=== PATIENT | female | born 1935 | race Caucasian/White ===

== ENCOUNTER 2018-04-14 18:09 | Emergency (ER) | payer MEDICARE, OTHER ==
[2018-04-14 18:17] VITALS: TEMP 97.6
--- NOTE | 2018-04-14 19:10 | XR ---
EXAMINATION TYPE: XR knee complete LT DATE OF EXAM: 04/14/2018 COMPARISON: NONE HISTORY: Injury and pain TECHNIQUE: 3 views FINDINGS: There is mild spurring of the medial femoral and tibial condyles. I see no fracture nor dis location. There is no sign of knee joint effusion. IMPRESSION: Minor degenerative changes. No fracture seen.
[2018-04-14 20:22] VITALS: BP 191/88; PULSE 65; RESP 16
--- NOTE | 2018-04-14 20:22 | US ---
EXAMINATION TYPE: US venous doppler duplex LE LT DATE OF EXAM: 04/14/2018 7:46 PM COMPARISON: NONE CLINICAL HISTORY: Pain. Left leg pain SIDE PERFORMED: Left TECHNIQUE: The lower extremity deep venous system is examined utilizing real time linear array sonog freddie with graded compression, doppler sonography and color-flow sonography. VESSELS IMAGED: External Iliac Vein (EIV) Common Femoral Vein Deep Femoral Vein Greater Saphenous Vein * Femoral Vein Popliteal Vein Small Saphenous Vein * Proximal Calf Veins (* superficial vessels) Left Leg: Appears negative for DVT IMPRESSION: No evidence of deep venous thrombosis in the left leg.
[2018-04-14] MEDS ORDERED: LOSARTAN 50 MG TAB PO STA (20:25)
[2018-04-14 20:42] LABS: Albumin 3.9 g/dL (3.5-5.0); Calcium 10.1 mg/dL (8.4-10.2); Potassium 4.5 mmol/L (3.5-5.1); Total Bilirubin 0.6 mg/dL (0.2-1.3)
--- NOTE | 2018-04-14 20:50 | ED ---
General Adult HPI - General Chief complaint: Extremity Injury, Lower Stated complaint: knee injury Source: patient, RN notes reviewed, old records reviewed Mode of arrival: EMS Limitations: no limitations - History of Present Illness Initial comments: 83-year-old female patient presents to ED after injuring her left knee. Patient states that at about 10:00 this morning while she was getting up from the toilet she twisted and felt pain in her left knee. Patient did not fall. Patient states that this pain has been progressively getting worse all day.. Patient describes it as a dull pain. Patient was ambulatory after the injury. Patient presented to the ED because of pain. Patient denies other complaints, including chest pain, shortness of breath, abdominal pain, nausea vomiting diarrhea, loss of bowel or bladder control, back pain. Systemic: Pt denies fatigue, myalgia, fever/chills, rash. Pt denies weakness, night sweats, weight loss. Neuro: Pt denies headache, visual disturbances, syncope or pre-syncope. HEENT: Pt denies ocular discharge or irritation, otalgia, rhinorrhea, pharyngitis or notable lymphadenopathy. Cardiopulmonary: Pt denies chest pain, SOB, heart palpitations, dyspnea on exertion. Abdominal/GI: Pt denies abdominal pain, n/v/d. : Pt denies dysuria, burning w/ urination, frequency/urgency. Denies new onset urinary or bowel incontinence. MSK: Pt denies myalgia, loss of strength or function in extremities. - Related Data Home Medications Medication Instructions Recorded Confirmed Atenolol [Tenormin] 50 mg PO DAILY 06/05/14 06/05/14 Furosemide [Lasix] 20 mg PO DAILY 06/05/14 06/05/14 Levothyroxine Sodium [Synthroid] 125 mcg PO DAILY 06/05/14 06/05/14 Losartan Potassium 100 mg PO DAILY 06/05/14 06/05/14 Multivitamins, Thera [Multivitamin 1 each PO DAILY 06/05/14 06/05/14 (formulary)] Pravastatin Sodium [Pravachol] 80 mg PO HS 06/05/14 06/05/14 Solifenacin Succinate [Vesicare] 5 mg PO DAILY 06/05/14 06/05/14 amLODIPine [Norvasc] 2.5 mg PO DAILY 06/05/14 06/05/14 Previous Rx's Medication Instructions Recorded Levofloxacin [Levaquin] 750 mg PO DAILY #5 tab 06/06/14 Albuterol Nebulized [Ventolin 2.5 mg INHALATION RT-QID #1 nebu 06/08/14 Nebulized] Oseltamivir [Tamiflu] 75 mg PO Q12HR #4 cap 06/08/14 guaiFENesin [Mucinex] 1,200 mg PO Q12HR #1 tablet.er 06/08/14 Ibuprofen [Motrin] 400 mg PO Q6HR PRN #40 day 04/14/18 Allergies Allergy/AdvReac Type Severity Reaction Status Date / Time Sulfa (Sulfonamide Allergy Rash/Hives Verified 04/14/18 18:17 Antibiotics) Review of Systems ROS Statement: Those systems with pertinent positive or pertinent negative responses have been documented in the HPI. ROS Other: All systems not noted in ROS Statement are negative. Past Medical History Past Medical History: Hyperlipidemia, Hypertension, Myocardial Infarction ([place]), Thyroid Disorder Last Myocardial Infarction Date:: 1984 History of Any Multi-Drug Resistant Organisms: None Reported Past Surgical History: Appendectomy, Cholecystectomy, Joint Replacement, Tonsillectomy Additional Past Surgical History / Comment(s): RT KNEE SURGERY Past Anesthesia/Blood Transfusion Reactions: No Reported Reaction Past Psychological History: No Psychological Hx Reported Smoking Status: Never smoker Past Alcohol Use History: None Reported Past Drug Use History: None Reported General Exam - General Exam Comments Initial Comments: Constitutional: NAD, AOX3, Pt has pleasant affect. HEENT: NC/AT, trachea midline, neck supple, no lymphadenopathy. Posterior pharynx non erythematous, without exudates. External ears appear normal, without discharge. Mucous membranes moist. Eyes PERRLA, EOM intact. There is no scleral icterus. No pallor noted. Cardiopulmonary: RRR, no murmurs, rubs or gallops, no JVD noted. Lungs CTAB in anterior and posterior bansal. No peripheral edema. Abdominal exam: Abdomen soft and non-distended. Abdomen non-tender to palpation in all 4 quadrants. Bowel sounds active in LLQ. No hepatosplenomegaly. Neuro: CN II-XII intact, no focal deficit, no facial droop, no extremity weakness or paresthesias. MSK: Left knee mildly tender to palpation. Flexion of the knee moderately impaired due to pain. Posterior left calf tender to palpation, Homans sign negative. Psoas strength 5 out of 5 bilaterally. Patient upper extremities 5 out of 5 strength. Distal pulses intact. Limitations: no limitations Course Vital Signs 04/14/18 04/14/18 18:14 20:22 Temperature 97.6 F Pulse Rate 98 65 Respiratory 20 16 Rate Blood Pressure 203/86 191/88 O2 Sat by Pulse 96 95 Oximetry Medical Decision Making - Medical Decision Making 83-year-old female patient who presents to ED with left knee pain after sustaining a twisting injury, patient did not fall. Physical exam did not reveal any gross pathology. Patient's left calf was tender palpation, Homans sign negative. Imaging modalities including a left knee film, left lower extremity venous duplex ultrasound performed. The plain film did not display any acute fracture, dislocation or joint effusion. The lower extremity ultrasound did not display any DVT. A CMP displayed adequate kidney function. The patient was hypertensive 191/88 in ED. No focal deficit, no facial droop, no extremity weakness, pt cognition at baseline. Pt did not take her at home PO antihypertensive medication, it was ordered for her in ED. patient will monitor her blood pressure at home. The patient will be discharged with outpatient orthopedic follow up. Px ibuprofen for pain and inflammation. Patient to return to ED if new signs or symptoms develop, including chest pain, shortness of breath, focal deficit, change in mental status, fall, syncope/presyncope or any other new symptoms. Case discussed with Dr. Hernandez. Disposition Clinical Impression: Left knee sprain Disposition: HOME SELF-CARE Condition: Good Instructions: Knee Sprain (ED) Additional Instructions: Please continue to ice elevate the affected area at least 4 times a day for 20 minutes at a time. Please use Tylenol/ibuprofen for pain. Please follow-up in 7-10 days for repeat x-rays if symptoms persist. Please return to emergency room for any other concerns.Patient to adhere to previously discussed treatment plan and will take medication(s) as directed. Patient to follow up with PCP in 1 -2 days. Patient to return to ED if symptoms do not improve. Prescriptions: Ibuprofen [Motrin] 400 mg PO Q6HR PRN #40 day PRN Reason: Pain Is patient prescribed a controlled substance at d/c from ED?: No Referrals: Neo Tarango MD [Primary Care Provider] - 1-2 days Colby Erwin MD [Medical Doctor] - 1-2 days
== END 2018-04-14 21:00 | disposition home or self-care (01) ==
LOC: EC 18:09
DX: S83.92XA Sprain of unspecified site of left knee, initial encounter (principal); M79.662 Pain in left lower leg; I10 Essential (primary) hypertension; I25.2 Old myocardial infarction; E78.5 Hyperlipidemia, unspecified; E07.9 Disorder of thyroid, unspecified; Z90.49 Acquired absence of other specified parts of digestive tract; Z96.651 Presence of right artificial knee joint; Z79.899 Other long term (current) drug therapy; Z88.2 Allergy status to sulfonamides; X50.1XXA Overexertion from prolonged static or awkward postures, initial encounter; Y92.002 Bathroom of unspecified non-institutional (private) residence as the place of occurrence of the external cause
CPT/HCPCS: 36415; 80053; 99284

== ENCOUNTER 2019-08-08 14:44 | Observation (INO) | payer MEDICARE, OTHER ==
[2019-08-08] MEDS ORDERED: SODIUM CHLORIDE 0.9% 500 ML 500 ML IV STA (15:08)
--- NOTE | 2019-08-08 15:16 | ED ---
General Adult HPI - General Chief complaint: Neuro Symptoms/Deficit Stated complaint: Poss stroke Time Seen by Provider: 08/08/19 14:55 Source: patient, EMS, RN notes reviewed, old records reviewed Mode of arrival: EMS Limitations: no limitations - History of Present Illness Initial comments: This is an 84-year-old female presents emergency Department because of right- sided facial droop. According to EMS last and the patient was seen normal was at 11:00 this morning. At 2:00 the home health nurse came to the house and noted right-sided facial droop and called EMS. Patient herself has no complaints per patient denies any patient denies any numbness weakness. Patient denies any visual disturbance. Patient denies headache. Patient states she can move all 470. Patient's denies chest pain difficult breathing shortness of breath. Patient denies any recent fever chills or cough. Patient denies any abdominal pain. Patient denies nausea vomiting. - Related Data Home Medications Medication Instructions Recorded Confirmed Levothyroxine Sodium [Synthroid] 125 mcg PO MOTUWETHFRSA 06/05/14 08/08/19 Losartan Potassium 100 mg PO DAILY 06/05/14 08/08/19 Pravastatin Sodium [Pravachol] 80 mg PO DAILY 06/05/14 08/08/19 Carvedilol [Coreg] 3.125 mg PO BID 08/08/19 08/08/19 Furosemide [Lasix] 20 mg PO DAILY 08/08/19 08/08/19 Levothyroxine Sodium [Synthroid] 187.5 mcg PO TUBBS 08/08/19 08/08/19 Allergies Allergy/AdvReac Type Severity Reaction Status Date / Time Sulfa (Sulfonamide Allergy Rash/Hives Verified 08/08/19 16:24 Antibiotics) Review of Systems ROS Statement: Those systems with pertinent positive or pertinent negative responses have been documented in the HPI. ROS Other: All systems not noted in ROS Statement are negative. Past Medical History Past Medical History: Hyperlipidemia, Hypertension, Myocardial Infarction ([place]), Thyroid Disorder Last Myocardial Infarction Date:: 1984 History of Any Multi-Drug Resistant Organisms: None Reported Past Surgical History: Appendectomy, Cholecystectomy, Joint Replacement, Tonsillectomy Additional Past Surgical History / Comment(s): RT KNEE SURGERY Past Anesthesia/Blood Transfusion Reactions: No Reported Reaction Past Psychological History: No Psychological Hx Reported Smoking Status: Never smoker Past Alcohol Use History: None Reported Past Drug Use History: None Reported General Exam - General Exam Comments Initial Comments: GENERAL: Patient is well-developed and well-nourished. Patient is nontoxic and well- hydrated and is in no acute distress. ENT: Neck is soft and supple. No significant lymphadenopathy is noted. Oropharynx is clear. Moist mucous membranes. Neck has full range of motion without eliciting any pain. EYES: The sclera were anicteric and conjunctiva were pink and moist. Extraocular movements were intact and pupils were equal round and reactive to light. Eyelids were unremarkable. PULMONARY: Unlabored respirations. Good breath sounds bilaterally. No audible rales rhonchi or wheezing was noted. CARDIOVASCULAR: There is a regular rate and rhythm without any murmurs gallops or rubs. ABDOMEN: Soft and nontender with normal bowel sounds. SKIN: Skin is clear with no lesions or rashes and otherwise unremarkable. NEUROLOGIC: Patient is alert and oriented x3. Patient has full range of motion all 4 extremities. Patient has no drift. Patient has facial droop on the right side of the right cheek as well as the right eyelid difficult to assess whether the forehead is involved or not because the patient's forehead is without wrinkles. MUSCULOSKELETAL: Normal extremities with adequate strength and full range of motion. LYMPHATICS: No significant lymphadenopathy is noted PSYCHIATRIC: Normal psychiatric evaluation. Limitations: no limitations Course Vital Signs 08/08/19 08/08/19 08/08/19 14:53 15:09 15:24 Temperature 97.7 F Pulse Rate 71 68 67 Respiratory 20 16 16 Rate Blood Pressure 196/117 201/99 208/105 O2 Sat by Pulse 96 95 95 Oximetry Medical Decision Making - Medical Decision Making EKG shows a sinus rhythm at a rate of 69 bpm NC interval 284 QRS is 78 QT interval is 390 QTC is 426. Chest x-ray shows no acute abnormality. CT of the brain shows no acute abnormality. Family does not want the patient transferred so that patient will be here and family understands that there is no neurology coverage in the hospital at this time. I spoke with Dr. Oreilly and he agreed to accept the patient. 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 I spoke with the neurointerventionalist and he agreed no intervention was indicated medical management was indicated. - Lab Data Result diagrams: 08/08/19 15:14 08/08/19 15:54 Lab Results 08/08/19 08/08/19 08/08/19 Range/Units 14:59 15:14 15:14 WBC 8.1 (3.8-10.6) k/uL RBC 4.47 (3.80-5.40) m/uL Hgb 13.8 (11.4-16.0) gm/dL Hct 41.3 (34.0-46.0) % MCV 92.4 (80.0-100.0) fL MCH 30.8 (25.0-35.0) pg MCHC 33.3 (31.0-37.0) g/dL RDW 13.5 (11.5-15.5) % Plt Count 123 L (150-450) k/uL Neutrophils % 62 % Lymphocytes % 25 % Monocytes % 7 % Eosinophils % 4 % Basophils % 0 % Neutrophils # 5.0 (1.3-7.7) k/uL Lymphocytes # 2.1 (1.0-4.8) k/uL Monocytes # 0.6 (0-1.0) k/uL Eosinophils # 0.3 (0-0.7) k/uL Basophils # 0.0 (0-0.2) k/uL PT 10.2 (9.0-12.0) sec INR 1.0 (<1.2) APTT 21.6 L (22.0-30.0) sec Sodium (137-145) mmol/L Potassium (3.5-5.1) mmol/L Chloride (98-107) mmol/L Carbon Dioxide (22-30) mmol/L Anion Gap mmol/L BUN (7-17) mg/dL Creatinine (0.52-1.04) mg/dL Est GFR (CKD-EPI)AfAm (>60 ml/min/1.73 sqM) Est GFR (CKD-EPI)NonAf (>60 ml/min/1.73 sqM) Glucose (74-99) mg/dL POC Glucose (mg/dL) 102 H (75-99) mg/dL POC Glu Brewing Director ID [email or web address] Calcium (8.4-10.2) mg/dL Total Bilirubin (0.2-1.3) mg/dL AST (14-36) U/L ALT (4-34) U/L Alkaline Phosphatase (38-126) U/L Troponin I (0.000-0.034) ng/mL Total Protein (6.3-8.2) g/dL Albumin (3.5-5.0) g/dL 08/08/19 08/08/19 Range/Units 15:14 15:54 WBC (3.8-10.6) k/uL RBC (3.80-5.40) m/uL Hgb (11.4-16.0) gm/dL Hct (34.0-46.0) % MCV (80.0-100.0) fL MCH (25.0-35.0) pg MCHC (31.0-37.0) g/dL RDW (11.5-15.5) % Plt Count (150-450) k/uL Neutrophils % % Lymphocytes % % Monocytes % % Eosinophils % % Basophils % % Neutrophils # (1.3-7.7) k/uL Lymphocytes # (1.0-4.8) k/uL Monocytes # (0-1.0) k/uL Eosinophils # (0-0.7) k/uL Basophils # (0-0.2) k/uL PT (9.0-12.0) sec INR (<1.2) APTT (22.0-30.0) sec Sodium 140 (137-145) mmol/L Potassium 4.7 (3.5-5.1) mmol/L Chloride 105 (98-107) mmol/L Carbon Dioxide 31 H (22-30) mmol/L Anion Gap 4 mmol/L BUN 22 H (7-17) mg/dL Creatinine 0.62 (0.52-1.04) mg/dL Est GFR (CKD-EPI)AfAm >90 (>60 ml/min/1.73 sqM) Est GFR (CKD-EPI)NonAf 82 (>60 ml/min/1.73 sqM) Glucose 86 (74-99) mg/dL POC Glucose (mg/dL) (75-99) mg/dL POC Glu Brewing Director ID Calcium 9.7 (8.4-10.2) mg/dL Total Bilirubin 0.5 (0.2-1.3) mg/dL AST 50 H (14-36) U/L ALT 27 (4-34) U/L Alkaline Phosphatase 110 (38-126) U/L Troponin I 0.020 (0.000-0.034) ng/mL Total Protein 7.3 (6.3-8.2) g/dL Albumin 4.1 (3.5-5.0) g/dL Disposition Clinical Impression: Cerebrovascular accident (CVA) Disposition: ADMITTED IP TO THIS HOSP Referrals: Neo Tarango MD [Primary Care Provider] - 1-2 days Time of Disposition: 17:15
[2019-08-08 15:19] LABS: Glucose,Whole Blood 102 mg/dL (75-99)
--- NOTE | 2019-08-08 15:34 | CT ---
EXAMINATION TYPE: CT brain wo con for TPA DATE OF EXAM: 08/08/2019 COMPARISON: None HISTORY: Neuro deficit, acute, stroke suspected CT DLP: 1076.4 mGycm Automated exposure control for dose reduction was used. TECHNIQUE: CT scan of the head is performed without contrast. FINDINGS: There is no acute intracranial hemorrhage or midline shift identified. There is diffuse v entricular and sulcal prominence consistent with diffuse age-related cerebral atrophy. There is low- attenuation in the periventricular white matter consistent with chronic small vessel ischemic change. The globes are intact and the visualized sinuses are clear. IMPRESSION: 1. No acute intracranial hemorrhage or midline shift. No acute intracranial process seen. 2. Views age-related cerebral atrophy and chronic small vessel ischemic change noted.
[2019-08-08 15:42] LABS: Basophils % (A) 0 %; Eosinophils # (A) 0.3 k/uL (0-0.7); Eosinophils % (A) 4 %; HCT 41.3 % (34.0-46.0); HGB 13.8 gm/dL (11.4-16.0); Lymphocytes # (A) 2.1 k/uL (1.0-4.8); Lymphocytes % (A) 25 %; MCH 30.8 pg (25.0-35.0); MCHC 33.3 g/dL (31.0-37.0); MCV 92.4 fL (80.0-100.0); Mean Platelet Volume 10.3; Monocytes # (A) 0.6 k/uL (0-1.0); Monocytes % (A) 7 %; Neutrophils % (A) 62 %; Platelet Count 123 k/uL (150-450); RBC 4.47 m/uL (3.80-5.40); RDW 13.5 % (11.5-15.5); WBC 8.1 k/uL (3.8-10.6)
[2019-08-08 15:56] LABS: Partial Thromboplastin Time 21.6 sec (22.0-30.0); Prothrombin Time 10.2 sec (9.0-12.0)
[2019-08-08 16:22] LABS: ALT 27 U/L (4-34); AST 50 U/L (14-36); African American GFR (CKD) >90 (>60 ml/min/1.73 sqM); Albumin 4.1 g/dL (3.5-5.0); Alkaline Phosphatase 110 U/L (38-126); Anion Gap 4 mmol/L; Blood Urea Nitrogen 22 mg/dL (7-17); Calcium 9.7 mg/dL (8.4-10.2); Carbon Dioxide 31 mmol/L (22-30); Chloride 105 mmol/L (98-107); Glucose 86 mg/dL (74-99); Non-African American GFR(CKD) 82 (>60 ml/min/1.73 sqM); Potassium 4.7 mmol/L (3.5-5.1); Sodium 140 mmol/L (137-145); Total Bilirubin 0.5 mg/dL (0.2-1.3); Total Protein 7.3 g/dL (6.3-8.2)
--- NOTE | 2019-08-08 16:22 | XR ---
EXAMINATION TYPE: XR chest 2V DATE OF EXAM: 08/08/2019 COMPARISON: 08/08/2019 HISTORY: Right-sided facial droop and hypertension. Altered mental status. TECHNIQUE: Frontal and lateral views of the chest are obtained. FINDINGS: There is no focal air space opacity, pleural effusion, or pneumothorax seen. There is pers istent right hemidiaphragm elevation and there are low lung volumes crowding the pulmonary vasculatur e. Cardiomediastinal silhouette is upper limits of normal size as seen on the prior. There is diffuse osseous demineralization. Moderate degenerative change of the spine. IMPRESSION: Low lung volumes creating crowding of the pulmonary vasculature. No acute process seen.
[2019-08-08] MEDS ORDERED: ASPIRIN 325 MG TAB PO STA (17:16)
[2019-08-08] MEDS ORDERED: ACETAMINOPHEN TAB 325 MG TAB PO PRN (17:51)
[2019-08-08] MEDS ORDERED: NALOXONE 0.4 MG/ML 1 ML VIAL IV PRN (17:51)
[2019-08-08] MEDS ORDERED: HYDROcodone/APAP 5-325MG 1 EACH TAB PO PRN (17:51)
[2019-08-08] MEDS: valACYclovir HCL 1,000 MG TABLET PO SCH ×2 (17:58→21:23)
--- NOTE | 2019-08-08 18:36 | P.HPIM ---
History of Present Illness H&P Date: 08/08/19 Chief Complaint: Facial droop 84 year old female with PMH of hypertension, CAD, hyperlipidemia, hypothyroidism presents the ED for right-sided facial droop. Patient specifically reports no symptoms and would like to go home. Patient reports that this morning she was visited by her friend when they noticed that she had a right-sided facial droop. According to the ED documentation, the facial droop was noted around 2:00 PM and the patient was last seen normal around 11:00 AM. Patient denies any slurred speech. She denies any confusion or difficulty finding words. She denies any difficulty swallowing. She denies any numbness weakness or tingling in her extremities. She denies any difficulty with her gait. Patient reports lower extremity edema that is chronic in nature. She denies any headache, nausea or vomiting, fever chills, cough, chest pain, shortness of breath, palpitations, changes in urination or bowel habits. No changes in appetite or weight. She denies any dizziness. Patient denies smoking or alcohol use. In the ED, patient started having a BP of 190/94. CBC showed platelet count 123. Coagulation panel showed PTT of 21.6. CMP showed bicarbonate of 31, BUN of 22, AST of 50. Troponin was 0.020, EKG showing sinus rhythm. Chest x-ray showed low lung volumes. CT brain was negative. Patient is admitted for facial droop, rule out stroke. Review of Systems Pertinent positives and negatives as discussed in HPI, a complete review of systems was performed and all other systems are negative. Past Medical History Past Medical History: Hyperlipidemia, Hypertension, Myocardial Infarction ([place]), Thyroid Disorder Last Myocardial Infarction Date:: 1984 History of Any Multi-Drug Resistant Organisms: None Reported Past Surgical History: Appendectomy, Cholecystectomy, Joint Replacement, Tonsillectomy Additional Past Surgical History / Comment(s): RT KNEE SURGERY Past Anesthesia/Blood Transfusion Reactions: No Reported Reaction Past Psychological History: No Psychological Hx Reported Smoking Status: Never smoker Past Alcohol Use History: None Reported Past Drug Use History: None Reported Medications and Allergies Home Medications Medication Instructions Recorded Confirmed Type Levothyroxine Sodium [Synthroid] 125 mcg PO MOTUWETHFRSA 06/05/14 08/08/19 History Losartan Potassium 100 mg PO DAILY 06/05/14 08/08/19 History Pravastatin Sodium [Pravachol] 80 mg PO DAILY 06/05/14 08/08/19 History Carvedilol [Coreg] 3.125 mg PO BID 08/08/19 08/08/19 History Furosemide [Lasix] 20 mg PO DAILY 08/08/19 08/08/19 History Levothyroxine Sodium [Synthroid] 187.5 mcg PO TUBBS 08/08/19 08/08/19 History Allergies Allergy/AdvReac Type Severity Reaction Status Date / Time Sulfa (Sulfonamide Allergy Rash/Hives Verified 08/08/19 16:24 Antibiotics) Physical Exam Vitals: Vital Signs Temp Pulse Resp BP Pulse Ox 08/08/19 17:48 16 166/84 08/08/19 17:17 69 16 168/79 95 08/08/19 17:09 69 16 168/79 95 08/08/19 16:09 67 16 190/94 95 08/08/19 15:24 67 16 208/105 95 08/08/19 15:09 68 16 201/99 95 08/08/19 14:53 97.7 F 71 20 196/117 96 Intake and Output 08/08/19 08/08/19 08/08/19 06:59 14:59 22:59 Other: Weight 104.326 kg General: [non toxic], [no distress], [appears at stated age] Derm: [warm], [dry] Head: [atraumatic], [normocephalic], [symmetric] Eyes: [EOMI], [no lid lag], [anicteric sclera] Mouth: [no lip lesion], [mucus membranes moist] Cardiovascular: [S1S2 reg], [no murmur], [positive posterior tibial pulse bilateral], Lungs: [CTA bilateral], [no rhonchi, no rales] , [no accessory muscle use] Abdominal: [soft], [ nontender to palpation], [no guarding], [no appreciable organomegaly] Ext: [no gross muscle atrophy], [no edema], [no contractures] Neuro: [ CN II-XI grossly intact], [no focal neuro deficits] Psych: [Alert], [oriented], [appropriate affect] Results CBC & Chem 7: 08/08/19 15:14 08/08/19 15:54 Labs: Abnormal Lab Results - Last 24 Hours (Table) 08/08/19 08/08/19 08/08/19 Range/Units 14:59 15:14 15:14 Plt Count 123 L (150-450) k/uL APTT 21.6 L (22.0-30.0) sec Carbon Dioxide (22-30) mmol/L BUN (7-17) mg/dL POC Glucose (mg/dL) 102 H (75-99) mg/dL AST (14-36) U/L 08/08/19 Range/Units 15:54 Plt Count (150-450) k/uL APTT (22.0-30.0) sec Carbon Dioxide 31 H (22-30) mmol/L BUN 22 H (7-17) mg/dL POC Glucose (mg/dL) (75-99) mg/dL AST 50 H (14-36) U/L Assessment and Plan Assessment: 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 She has been started on prednisone by mouth along with Valtrex. Concerns are for CVA. Patient and family is aware that there is no neurology on staff. Stroke workup has been initiated. Carotid ultrasound pending. Echocardiogram pending. MRI brain pending. PTOT and speech therapy consulted. Start aspirin and pravastatin. Her blood pressure is 166/84. Her home medication of Coreg and losartan will be restarted. Her vitals be monitored and medications adjusted as necessary. Her home medication of pravastatin will be restarted per dyslipidemia. Patient is on aspirin, pravastatin and Coreg for history of CAD. Her home medication of Synthroid has been restarted for hypothyroidism. DVT prophylaxis: [Heparin] Discussed with: [Patient] Anticipated discharge: [1-2 days] Anticipated discharge place: [Home] A total of [45] minutes was spent on the care of this complex patient more than 50% of the time was spent in counseling and care coordination. Patient names her daughter Agustina decision maker if she can't make decisions for herself. Patient would like to be full code. Her PCP is Dr. Tarango.
--- NOTE | 2019-08-08 19:39 | US ---
EXAMINATION TYPE: US carotid duplex BILAT DATE OF EXAM: 08/08/2019 COMPARISON: CT CLINICAL HISTORY: Stenosis. Stenosis. HTN, hyperlipidemia, [place]. EXAM MEASUREMENTS: RIGHT: Peak Systolic Velocity (PSV) cm/sec ----- Right CCA: 51.7 ----- Right ICA: 63.1 ----- Right ECA: 70.7 ICA/CCA ratio: 1.2 RIGHT: End Diastole cm/sec ----- Right CCA: 9.7 ----- Right ICA: 9.0 ----- Right ECA: 9.1 LEFT: Peak Systolic Velocity (PSV) cm/sec ----- Left CCA: 33.8 ----- Left ICA: 97.1 ----- Left ECA: 74.3 ICA/CCA ratio: 2.9 LEFT: End Diastole cm/sec ----- Left CCA: 7.5 ----- Left ICA: 12.4 ----- Left ECA: 6.2 VERTEBRALS (direction of flow): Right Vertebral: Antegrade Left Vertebral: Antegrade Rhythm: Arrhythmia Limited exam due to depth of vessels. Plaque is seen bilaterally, left greater than right. Tortuous C CA bilaterally. No elevated velocities obtained. IMPRESSION: The images and measurements suggest less than 20% stenosis in the right internal carotid artery and 50% stenosis left internal carotid artery. There is antegrade flow in the vertebral arteries. Criteria for Assigning % of Stenosis / Diameter reduction (Estimation based on the indirect measurements of the internal carotid artery velocities (ICA PSV). 1. Normal (no stenosis)=ICA PSV < 125 cm/s: ratio < 2.0: ICA EDV<40 cm/s. 2. Less than 50% stenosis=ICA PSV < 125 cm/s: ratio < 2.0: ICA EDV<40 cm/s. 3. 50 to 69% stenosis=ICA PSV of 125 to 230 cm/s: ration 2.0 ? 4.0: ICA EDV 40-100 cm/s. 4. Greater than 70% stenosis to near occlusion= ICA PSV > 230 cm/s: ratio > 4.0: ICA EDV > 100 cm/s. 5. Near occlusion= ICA PSV velocities may be low or undetectable: variable ratio and ICA EDV. 6. Total occlusion=unable to detect flow.
[2019-08-08] MEDS: CARVEDILOL 3.125 MG TAB PO SCH (20:33)
[2019-08-08] MEDS: HEPARIN SODIUM,PORCINE 5,000 UNIT/ML 1 ML VIAL SQ SCH (20:33)
[2019-08-09 06:19] LABS: Cholesterol 134 mg/dL (<200); HDL Cholesterol 45 mg/dL (40-60); LDL Cholesterol,Calculated 65 mg/dL (0-99); Triglycerides 121 mg/dL (<150)
[2019-08-09] MEDS: CARVEDILOL 3.125 MG TAB PO SCH (06:19)
[2019-08-09] MEDS ORDERED: LEVOTHYROXINE 125 MCG TAB PO SCH (06:30)
[2019-08-09] MEDS ORDERED: LOSARTAN 50 MG TAB PO SCH (09:00)
[2019-08-09] MEDS ORDERED: predniSONE 20 MG TAB PO SCH (09:00)
[2019-08-09] MEDS ORDERED: PRAVASTATIN SODIUM 80 MG TAB PO SCH (09:00)
[2019-08-09] MEDS ORDERED: FUROSEMIDE 20 MG TAB PO SCH (09:00)
--- NOTE | 2019-08-09 09:08 | MR ---
EXAMINATION TYPE: MR brain wo con DATE OF EXAM: 08/09/2019 COMPARISON: CT brain from yesterday. HISTORY: CVA. Acute onset neuro deficit on admission 1 day earlier. TECHNIQUE: Multiplanar, multisequence imaging of the brain and brainstem is performed without IV cont rast. FINDINGS: Suboptimal due to patient motion, fast brain protocol was utilized. Diffusion weighted images demonstrate no evidence of a recent infarct or other diffusion abnormality. There is no worrisome extra-axial fluid collection. There is diffuse ventricular and sulcal prominenc e with degree of ventricular dilatation out of proportion to degree of sulcal effacement. Underlying normal pressure hydrocephalus needs to be considered. No significant change in ventricular size from one day earlier. Focal and confluent areas of T2 hyperintensity are seen throughout the superficial d eep and periventricular white matter. Findings presumed bibasilar product of proximal small vessel is chemic change in patient of this age. Midline structures demonstrate normal morphology. The craniocervical junction appears within normal limits. Normal vascular flow voids are present. Mild mucosal thickening involving ethmoid sinuses trish aterally along with left frontal sinus and inferior maxillary sinuses. Globes are intact. IMPRESSION: 1. No evidence of a recent infarct. 2. Redemonstration of mild to moderate diffuse cerebral atrophy and advanced chronic small vessel isc hemic change with suggestion of underlying normal pressure hydrocephalus. Correlate clinically. Corre lation with old outside CT or MRI would be beneficial to see if there is been change in ventricular s ize. 3. Mild chronic paranasal sinus disease. No acute sinusitis.
[2019-08-09] MEDS: HEPARIN SODIUM,PORCINE 5,000 UNIT/ML 1 ML VIAL SQ SCH (09:30)
[2019-08-09] MEDS: valACYclovir HCL 1,000 MG TABLET PO SCH (09:31)
--- NOTE | 2019-08-09 11:11 | P.DS ---
Providers Date of admission: 08/08/19 17:16 Expected date of discharge: 08/09/19 Attending physician: Frank Oreilly MD Primary care physician: Neo Tarango [facility] Course: 84 year old female with PMH of hypertension, CAD, hyperlipidemia, hypothyroidism presents the ED for right-sided facial droop. Patient specifically reports no symptoms and would like to go home. Patient reports that this morning she was visited by her friend when they noticed that she had a right-sided facial droop. According to the ED documentation, the facial droop was noted around 2:00 PM and the patient was last seen normal around 11:00 AM. Patient denies any slurred speech. She denies any confusion or difficulty finding words. She denies any difficulty swallowing. She denies any numbness weakness or tingling in her extremities. She denies any difficulty with her gait. Patient reports lower extremity edema that is chronic in nature. She denies any headache, nausea or vomiting, fever chills, cough, chest pain, shortness of breath, palpitations, changes in urination or bowel habits. No changes in appetite or weight. She denies any dizziness. Patient denies smoking or alcohol use. In the ED, patient started having a BP of 190/94. CBC showed platelet count 123. Coagulation panel showed PTT of 21.6. CMP showed bicarbonate of 31, BUN of 22, AST of 50. Troponin was 0.020, EKG showing sinus rhythm. Chest x-ray showed low lung volumes. CT brain was negative. Patient is admitted for facial droop, rule out stroke. Carotid ultrasound showed 20% stenosis right internal carotid and 50% stenosis left internal carotid. MRI brain was negative for acute stroke. Echocardiogram was obtained and was pending at the time of this note. Patient was seen and examined. No acute events overnight. Patient has no complaints today. She denies any chest pain, shortness of breath or palpitations. No nausea or vomiting. No fever or chills. Continues to have facial droop and inability to close the right eye. General: [non toxic], [no distress], [appears at stated age] Derm: [warm], [dry] Head: [atraumatic], [normocephalic], [symmetric] Eyes: [EOMI], [no lid lag], [anicteric sclera] Mouth: [no lip lesion], [mucus membranes moist] Cardiovascular: [S1S2 reg], [no murmur], [positive posterior tibial pulse bilateral], Lungs: [CTA bilateral], [no rhonchi, no rales] , [no accessory muscle use] Abdominal: [soft], [ nontender to palpation], [no guarding], [no appreciable organomegaly] Ext: [no gross muscle atrophy], [no edema], [no contractures] Neuro: [ CN II-XI grossly intact except right-sided facial droop and inability to close the right eye], [no focal neuro deficits] Psych: [Alert], [oriented], [appropriate affect] 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 She has been started on prednisone by mouth along with Valtrex. Concerns are for CVA. Patient and family is aware that there is no neurology on staff. Stroke workup has been initiated. Carotid ultrasound shows noncritical stenosis. Echocardiogram pending. MRI brain shows no CVA. PTOT and speech therapy consulted. Start aspirin and pravastatin. Her blood pressure is 146/67. Her home medication of Coreg and losartan will be restarted. Her vitals be monitored and medications adjusted as necessary. Her home medication of pravastatin will be restarted per dyslipidemia. Patient is on aspirin, pravastatin and Coreg for history of CAD. Her home medication of Synthroid has been restarted for hypothyroidism. [MRI brain rules out CVA. 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 Will discharge on Valtrex and prednisone. Discharge today pending echocardiogram result.] Pertinent Studies: CT brain, chest x-ray, carotid ultrasound, MRI brain, echocardiogram Patient Condition at Discharge: Stable Plan - Discharge Summary Discharge Rx Participant: No New Discharge Prescriptions: New predniSONE [Deltasone] 60 mg PO DAILY #12 tab valACYclovir HCL [Valtrex] 1,000 mg PO TID #15 tablet Continue Levothyroxine Sodium [Synthroid] 125 mcg PO MOTUWETHFRSA Pravastatin Sodium [Pravachol] 80 mg PO DAILY Losartan Potassium 100 mg PO DAILY Furosemide [Lasix] 20 mg PO DAILY Carvedilol [Coreg] 3.125 mg PO BID Levothyroxine Sodium [Synthroid] 187.5 mcg PO TUBBS Discharge Medication List Levothyroxine Sodium [Synthroid] 125 mcg PO MOTUWETHFRSA 06/05/14 [History] Losartan Potassium 100 mg PO DAILY 06/05/14 [History] Pravastatin Sodium [Pravachol] 80 mg PO DAILY 06/05/14 [History] Carvedilol [Coreg] 3.125 mg PO BID 08/08/19 [History] Furosemide [Lasix] 20 mg PO DAILY 08/08/19 [History] Levothyroxine Sodium [Synthroid] 187.5 mcg PO TUBBS 08/08/19 [History] predniSONE [Deltasone] 60 mg PO DAILY #12 tab 08/09/19 [Rx] valACYclovir HCL [Valtrex] 1,000 mg PO TID #15 tablet 08/09/19 [Rx] Follow up Appointment(s)/Referral(s): Neo Tarango MD [Primary Care Provider] - 1-2 days Activity/Diet/Wound Care/Special Instructions: Diet: Low-salt Follow-up with PCP within 3 days of discharge. Take all medications as advised. Come back to the ED for chest pain, shortness breath, palpitations, dizziness, confusion, inability to swallow, changes in gait or slurred speech. Discharge Disposition: HOME SELF-CARE
[2019-08-09 11:48] VITALS: BP 177/80; PULSE 57; RESP 16; TEMP 98.4
[2019-08-09] MEDS ORDERED: ASPIRIN 325 MG TAB PO SCH (12:00)
[2019-08-13] MEDS ORDERED: LEVOTHYROXINE 125 MCG TAB PO SCH (06:30)
--- NOTE | 2019-08-15 10:56 | ECHOF ---
Referral Reason:CVA MEASUREMENTS -------- HEIGHT: 157.5 cm WEIGHT: 109.3 kg BP: 165/76 RVIDd: 3.1 cm (< 3.3) IVSd: 1.6 cm (0.6 - 1.1) LVIDd: 4.5 cm (3.9 - 5.3) LVPWd: 1.4 cm (0.6 - 1.1) IVSs: 2.0 cm LVIDs: 2.9 cm LVPWs: 1.8 cm LA Diam: 4.8 cm (2.7 - 3.8) IVSd: 1.5 cm (0.6 - 1.1) LVIDd: 4.0 cm (3.9 - 5.3) LVPWd: 1.5 cm (0.6 - 1.1) IVSs: 1.8 cm LVIDs: 2.7 cm LVPWs: 1.8 cm EDV(Teich): 71 ml ESV(Teich): 27 ml EF(Teich): 62 % %FS: 33 % SV(Teich): 44 ml Ao Diam: 3.8 cm (2.0 - 3.7) AV Cusp: 2.0 cm (1.5 - 2.6) LA Diam: 4.9 cm (2.7 - 3.8) MV E Salvatore: 1.22 m/s MV DecT: 356 ms MV A Salvatore: 1.70 m/s MV E/A Ratio: 0.72 AV maxP.06 mmHg AV meanP.72 mmHg FINDINGS -------- Sinus rhythm. This was a technically good study. The left ventricular size is normal. There is moderate concentric left ventricular hypertrophy. T here is normal global left ventricular contractility. The right ventricle is normal in size and function. The left atrium is moderately dilated. The right atrium is normal in size. 5.0mg of Lumason was utilized for enhancement of images Interatrial and interventricular septum intact. There is mild to moderate aortic valve sclerosis. There is no evidence of aortic stenosis. The ao rtic valve area by continuity equation is {ALEXIA}. The maximum velocity across the aortic valve is 1. 94m/s. The mitral valve is normal. Moderate mitral annular calcification present. Mild mitral regurgitat ion is present. The tricuspid valve appears structurally normal. No regurgitation noted Pulmonic valve appears structurally normal. The aortic root, ascending aorta and aortic arch are normal. The pericardium is normal. CONCLUSIONS -------- 1. Sinus rhythm. 2. This was a technically good study. 3. The left ventricular size is normal. 4. There is moderate concentric left ventricular hypertrophy. 5. There is normal global left ventricular contractility. 6. The right ventricle is normal in size and function. 7. The left atrium is moderately dilated. 8. The right atrium is normal in size. 9. 5.0mg of Lumason was utilized for enhancement of images 10. Interatrial and interventricular septum intact. 11. There is mild to moderate aortic valve sclerosis. 12. There is no evidence of aortic stenosis. 13. The aortic valve area by continuity equation is {ALEXIA}. 14. The maximum velocity across the aortic valve is 1.94m/s. 15. The mitral valve is normal. 16. Moderate mitral annular calcification present. 17. Mild mitral regurgitation is present. 18. The tricuspid valve appears structurally normal. 19. No regurgitation noted 20. Pulmonic valve appears structurally normal. 21. The aortic root, ascending aorta and aortic arch are normal. 22. The pericardium is normal. DRILL OPERATOR [employer]: Cristiano Laurent RDCS
== END 2019-08-09 14:52 | disposition home or self-care (01) ==
LOC: EC 14:44 → 3SCARD 17:16 → UNDOADMIN 17:16 → INTOOBSV 17:16 → 3SCARD 17:35
PROVIDERS: ADMIT Family Medicine; ATTEND Family Medicine
DX: R29.810 Facial weakness (principal); I10 Essential (primary) hypertension; I25.10 Atherosclerotic heart disease of native coronary artery without angina pectoris; E03.9 Hypothyroidism, unspecified; E78.5 Hyperlipidemia, unspecified; I25.2 Old myocardial infarction; I65.21 Occlusion and stenosis of right carotid artery; I34.0 Nonrheumatic mitral (valve) insufficiency; G31.9 Degenerative disease of nervous system, unspecified; Z79.82 Long term (current) use of aspirin; Z79.890 Hormone replacement therapy; Z79.899 Other long term (current) drug therapy; Z96.60 Presence of unspecified orthopedic joint implant; Z88.2 Allergy status to sulfonamides; Z90.49 Acquired absence of other specified parts of digestive tract
CPT/HCPCS: 96372 ×2; 99285; 36415; 97162; 97166; 80061; 80053; 84484; 85025; 85610; 85730; 71046; 93880; 70450; 70551; G0378 ×2; C8929; J1644 ×2; J7512; Q9950; 93306

== ENCOUNTER 2019-11-01 13:16 | Inpatient (IN) | payer MEDICARE, OTHER ==
[2019-11-01] MEDS ORDERED: SODIUM CHLORIDE 0.9% 1,000 ML IV STA (13:30)
[2019-11-01] MEDS ORDERED: cefTRIAXone IN SWFI 1,000 MG/10 ML SYRINGE IVP STA (13:42)
--- NOTE | 2019-11-01 13:43 | ED ---
General Adult HPI - General Chief complaint: Fall Stated complaint: Fall,Dizzy Time Seen by Provider: 11/01/19 13:30 Source: patient, RN notes reviewed, old records reviewed Mode of arrival: ambulatory Limitations: no limitations - History of Present Illness Initial comments: 84-year-old female presenting status post fall. Patient fell at home, she does live alone she was unable to stand or ambulate for approximately 24 hours after the fall. She states she was dizzy prior to the fall. She has left lower extremity erythema which has been present for the past one week or so. Patient herself has no complaints, no head or neck pain. Denies injury from the fall. No chest pain or abdominal pain. No vomiting or diarrhea. - Related Data Home Medications Medication Instructions Recorded Confirmed Levothyroxine Sodium [Synthroid] 125 mcg PO MOTUWETHFRSA 06/05/14 08/08/19 Losartan Potassium 100 mg PO DAILY 06/05/14 08/08/19 Pravastatin Sodium [Pravachol] 80 mg PO DAILY 06/05/14 08/08/19 Carvedilol [Coreg] 3.125 mg PO BID 08/08/19 08/08/19 Furosemide [Lasix] 20 mg PO DAILY 08/08/19 08/08/19 Levothyroxine Sodium [Synthroid] 187.5 mcg PO TUBBS 08/08/19 08/08/19 Previous Rx's Medication Instructions Recorded predniSONE [Deltasone] 60 mg PO DAILY #12 tab 08/09/19 valACYclovir HCL [Valtrex] 1,000 mg PO TID #15 tablet 08/09/19 Allergies Allergy/AdvReac Type Severity Reaction Status Date / Time Sulfa (Sulfonamide Allergy Rash/Hives Verified 11/01/19 13:27 Antibiotics) Review of Systems ROS Statement: Those systems with pertinent positive or pertinent negative responses have been documented in the HPI. ROS Other: All systems not noted in ROS Statement are negative. Past Medical History Past Medical History: Hyperlipidemia, Hypertension, Myocardial Infarction (PA), Thyroid Disorder Last Myocardial Infarction Date:: 1984 History of Any Multi-Drug Resistant Organisms: None Reported Past Surgical History: Appendectomy, Cholecystectomy, Joint Replacement, Tonsillectomy Additional Past Surgical History / Comment(s): RT KNEE SURGERY Past Anesthesia/Blood Transfusion Reactions: No Reported Reaction Past Psychological History: No Psychological Hx Reported Smoking Status: Never smoker Past Alcohol Use History: None Reported Past Drug Use History: None Reported General Exam Limitations: no limitations General appearance: alert, in no apparent distress Head exam: Present: atraumatic, normocephalic Eye exam: Present: periorbital swelling (Right. swelling, erythema) ENT exam: Present: mucous membranes dry Respiratory exam: Present: normal lung sounds bilaterally. Absent: respiratory distress, wheezes Cardiovascular Exam: Present: regular rate, normal rhythm GI/Abdominal exam: Present: soft. Absent: distended, tenderness, guarding Extremities exam: Present: other (Left lower extremity circumferential cellulitis and chronic venous stasis) Neurological exam: Present: alert, oriented X3, CN II-XII intact. Absent: motor sensory deficit Psychiatric exam: Present: normal affect, normal mood Course Vital Signs 11/01/19 13:23 Temperature 97.6 F Pulse Rate 71 Respiratory 18 Rate Blood Pressure 175/92 O2 Sat by Pulse 95 Oximetry EKG Findings - EKG Comments: EKG Findings:: EKG: Sinus rhythm with occasional PVC, Q waves in T-wave inversion in lead 3, rate of 71, NV interval 162, QRS duration 84, QTC 444, no ST segment elevation Medical Decision Making - Medical Decision Making 84-year-old female presents status post fall with prolonged downtime. She is well-appearing with stable vitals. She has a left lower extremity cellulitis and some edema and erythema on her right side of her face and lateral orbit. Head CT is performed, negative for intracranial hemorrhage, CT of the cervical spine is negative for fracture subluxation. She has a white blood cell count 11.3, stable hemoglobin. Normal electrolytes. She has a CK of 1300 consistent with the degree of rhabdomyolysis. Urinalysis is pending. She has previous history of CHF and fluid overload, she started on 100 mL of normal saline, as well as IV antibiotics for her cellulitis. She will be admitted to Dr. Hartley. - Lab Data Result diagrams: 11/01/19 13:30 11/01/19 13:30 Lab Results 11/01/19 11/01/19 11/01/19 Range/Units 13:30 13:30 13:30 WBC 11.3 H (3.8-10.6) k/uL RBC 4.61 (3.80-5.40) m/uL Hgb 14.5 (11.4-16.0) gm/dL Hct 43.6 (34.0-46.0) % MCV 94.7 (80.0-100.0) fL MCH 31.5 (25.0-35.0) pg MCHC 33.3 (31.0-37.0) g/dL RDW 13.4 (11.5-15.5) % Plt Count 136 L (150-450) k/uL Neutrophils % 77 % Lymphocytes % 12 % Monocytes % 9 % Eosinophils % 1 % Basophils % 0 % Neutrophils # 8.7 H (1.3-7.7) k/uL Lymphocytes # 1.3 (1.0-4.8) k/uL Monocytes # 1.0 (0-1.0) k/uL Eosinophils # 0.1 (0-0.7) k/uL Basophils # 0.0 (0-0.2) k/uL PT 9.9 (9.0-12.0) sec INR 0.9 (<1.2) APTT 22.1 (22.0-30.0) sec Sodium 138 (137-145) mmol/L Potassium 4.7 (3.5-5.1) mmol/L Chloride 104 (98-107) mmol/L Carbon Dioxide 29 (22-30) mmol/L Anion Gap 5 mmol/L BUN 22 H (7-17) mg/dL Creatinine 0.54 (0.52-1.04) mg/dL Est GFR (CKD-EPI)AfAm >90 (>60 ml/min/1.73 sqM) Est GFR (CKD-EPI)NonAf 86 (>60 ml/min/1.73 sqM) Glucose 94 (74-99) mg/dL Plasma Lactic Acid Philip (0.7-2.0) mmol/L Calcium 9.7 (8.4-10.2) mg/dL Magnesium 1.9 (1.6-2.3) mg/dL Total Bilirubin 0.9 (0.2-1.3) mg/dL AST 90 H (14-36) U/L ALT 32 (4-34) U/L Alkaline Phosphatase 106 (38-126) U/L Creatine Kinase 1300 H* (30-135) U/L Total Protein 6.6 (6.3-8.2) g/dL Albumin 3.6 (3.5-5.0) g/dL 11/01/19 Range/Units 13:30 WBC (3.8-10.6) k/uL RBC (3.80-5.40) m/uL Hgb (11.4-16.0) gm/dL Hct (34.0-46.0) % MCV (80.0-100.0) fL MCH (25.0-35.0) pg MCHC (31.0-37.0) g/dL RDW (11.5-15.5) % Plt Count (150-450) k/uL Neutrophils % % Lymphocytes % % Monocytes % % Eosinophils % % Basophils % % Neutrophils # (1.3-7.7) k/uL Lymphocytes # (1.0-4.8) k/uL Monocytes # (0-1.0) k/uL Eosinophils # (0-0.7) k/uL Basophils # (0-0.2) k/uL PT (9.0-12.0) sec INR (<1.2) APTT (22.0-30.0) sec Sodium (137-145) mmol/L Potassium (3.5-5.1) mmol/L Chloride (98-107) mmol/L Carbon Dioxide (22-30) mmol/L Anion Gap mmol/L BUN (7-17) mg/dL Creatinine (0.52-1.04) mg/dL Est GFR (CKD-EPI)AfAm (>60 ml/min/1.73 sqM) Est GFR (CKD-EPI)NonAf (>60 ml/min/1.73 sqM) Glucose (74-99) mg/dL Plasma Lactic Acid Philip 1.3 (0.7-2.0) mmol/L Calcium (8.4-10.2) mg/dL Magnesium (1.6-2.3) mg/dL Total Bilirubin (0.2-1.3) mg/dL AST (14-36) U/L ALT (4-34) U/L Alkaline Phosphatase (38-126) U/L Creatine Kinase (30-135) U/L Total Protein (6.3-8.2) g/dL Albumin (3.5-5.0) g/dL Disposition Clinical Impression: Fall, Rhabdomyolysis, Dehydration, Cellulitis Disposition: ADMITTED IP TO THIS HOSP Condition: Stable Is patient prescribed a controlled substance at d/c from ED?: No Referrals: Neo Tarango MD [Primary Care Provider] - 1-2 days Decision to Admit Reason: Admit from EC Decision Date: 11/01/19 Decision Time: 15:05
[2019-11-01 14:15] LABS: Basophils % (A) 0 %; Eosinophils # (A) 0.1 k/uL (0-0.7); Eosinophils % (A) 1 %; HCT 43.6 % (34.0-46.0); HGB 14.5 gm/dL (11.4-16.0); Lymphocytes # (A) 1.3 k/uL (1.0-4.8); Lymphocytes % (A) 12 %; MCH 31.5 pg (25.0-35.0); MCHC 33.3 g/dL (31.0-37.0); MCV 94.7 fL (80.0-100.0); Mean Platelet Volume 9.2; Monocytes % (A) 9 %; Neutrophils # (A) 8.7 k/uL (1.3-7.7); Neutrophils % (A) 77 %; Platelet Count 136 k/uL (150-450); RBC 4.61 m/uL (3.80-5.40); RDW 13.4 % (11.5-15.5); WBC 11.3 k/uL (3.8-10.6)
[2019-11-01 14:23] LABS: ALT 32 U/L (4-34); AST 90 U/L (14-36); African American GFR (CKD) >90 (>60 ml/min/1.73 sqM); Albumin 3.6 g/dL (3.5-5.0); Alkaline Phosphatase 106 U/L (38-126); Anion Gap 5 mmol/L; Blood Urea Nitrogen 22 mg/dL (7-17); Calcium 9.7 mg/dL (8.4-10.2); Carbon Dioxide 29 mmol/L (22-30); Chloride 104 mmol/L (98-107); Glucose 94 mg/dL (74-99); Magnesium 1.9 mg/dL (1.6-2.3); Non-African American GFR(CKD) 86 (>60 ml/min/1.73 sqM); Potassium 4.7 mmol/L (3.5-5.1); Sodium 138 mmol/L (137-145); Total Bilirubin 0.9 mg/dL (0.2-1.3); Total Protein 6.6 g/dL (6.3-8.2)
[2019-11-01 14:26] LABS: INR 0.9 (<1.2); Partial Thromboplastin Time 22.1 sec (22.0-30.0); Prothrombin Time 9.9 sec (9.0-12.0)
[2019-11-01 14:27] LABS: Creatine Kinase 1300 U/L (30-135)
--- NOTE | 2019-11-01 14:28 | CT ---
EXAMINATION TYPE: CT brain cspine wo con DATE OF EXAM: 11/01/2019 COMPARISON: CT brain August 08, 2019. HISTORY: Fall injury with dizziness and neck pain. CT DLP: 1513.8 mGycm. Automated Exposure Control for Dose Reduction was Utilized. TECHNIQUE: CT scan of the head and cervical spine are performed without contrast. FINDINGS: There is no acute intracranial hemorrhage or midline shift shift identified. Diffuse vent ricular and sulcal prominence redemonstrated. Low-attenuation in the deep and periventricular white m atter again seen. The globes are intact and the visualized sinuses are clear. The calvarium is intact . Cervical spine is visualized in its entirety from C1 through upper thoracic levels and demonstrates s traightened alignment without evidence of acute fracture or dislocation. Slight grade 1 anterolisthe sis C3 on C4 and C4 and C5. Prevertebral soft tissue appears within normal limits. The C1-C2 articul ation is within normal limits on the coronal images. Vertebral body heights are maintained. Moderate to severe disc space narrowing and moderate spurring C5-C6 and C6-C7 levels. Posterior spurring and spur disc complexes effaces the anterior thecal sac at these levels. Axial images shows multilevel un covertebral facet degenerative changes bilaterally causing multilevel neural foraminal narrowing for reference bilateral C3-C4 and C4-C5 levels. Lung apices show no pneumothorax. IMPRESSION: 1. There is no acute fracture or dislocation evident in the cervical spine. 2. No acute intracranial hemorrhage or midline shift is seen. Moderate diffuse cerebral atrophy and c hronic small vessel ischemic changes redemonstrated without significant change from prior CT.
[2019-11-01] MEDS ORDERED: VANCOMYCIN IV PER PHARMACY 1 EACH MISC MISCELLANE PRN ×2 (14:51→17:59)
[2019-11-01] MEDS ORDERED: ACETAMINOPHEN TAB 325 MG TAB PO PRN (14:52)
[2019-11-01] MEDS ORDERED: NALOXONE 0.4 MG/ML 1 ML VIAL IV PRN (14:52)
--- NOTE | 2019-11-01 14:58 | XR ---
EXAMINATION TYPE: XR pelvis AP view DATE OF EXAM: 11/01/2019 COMPARISON: NONE HISTORY: Pain The osseous structures are intact and the joint spaces are preserved. No acute fracture is seen. Vi sualized bowel gas pattern is nonspecific. Calcifications in pelvis are likely vascular. Arthropathy of the hips. Degenerative change lower lumbar spine. IMPRESSION: 1. No acute fracture.
--- NOTE | 2019-11-01 15:03 | XR ---
EXAMINATION TYPE: XR chest 2V DATE OF EXAM: 11/01/2019 COMPARISON: 08/08/2019 HISTORY: Shortness of breath TECHNIQUE: Frontal and lateral views of the chest are obtained. FINDINGS: Scattered senescent parenchymal changes noted. Hyperinflation compatible with COPD. No evidence for infiltrate. No evidence for atelectasis. Chronic elevation right hemidiaphragm. Stran dy basilar densities are redemonstrated. Heart size is stable. Mediastinal structures are stable and grossly unremarkable. No evidence for hilar prominence. Degenerative changes dorsal spine. IMPRESSION: 1. No evidence for acute pulmonary disease.
[2019-11-01] MEDS ORDERED: VANCOMYCIN 1,750 MG in SODIUM CHLORIDE 0.9% 500 ML 500 ML IVPB ONE (15:45)
[2019-11-01] MEDS ORDERED: VANCOMYCIN 1,750 MG in SODIUM CHLORIDE 0.9% 250 ML IVPB ONE (15:45)
[2019-11-01 16:20] LABS: Appearance,Urine Cloudy (Clear); Bacteria,Urine Many /hpf; Bilirubin,Urine Negative (Negative); Blood,Urine Moderate (Negative); Budding Yeast,Urine Few /hpf; Color,Urine Yellow; Glucose,Urine (UA) Negative (Negative); Ketones,Urine Trace (Negative); Leukocyte Esterase,Urine Large (Negative); Mucus,Urine Rare /hpf; Nitrite,Urine Positive (Negative); Protein,Urine 1+ (Negative); RBC,Urine 36 /hpf (0-5); Specific Gravity,Urine 1.019 (1.001-1.035); Squamous Epithelial Cell,Urine 3 /hpf (0-4); Urobilinogen,Urine <2.0 mg/dL (<2.0); WBC,Urine >182 /hpf (0-5)
[2019-11-01] MEDS: SODIUM CHLORIDE 0.9% 1,000 ML IV SCH (16:49)
[2019-11-01] MEDS ORDERED: MELATONIN 3 MG TABLET PO PRN (17:57)
--- NOTE | 2019-11-01 18:02 | P.HPIM ---
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 In the emergency department she underwent an extensive evaluation. On arrival she was found to be hypertensive with a blood pressure 175/92. White blood cell count slightly elevated at 11.3, platelets 136, BUN 22, AST 90, creatine kinase 1300. Urinalysis showed significant urinary tract infection. CT brain and spine showed no fracture or dislocation of the cervical spine, no acute intracranial hemorrhage or midline shift with moderate diffuse vertebral atrophy and chronic small vessel ischemic changes. Pelvic x-ray showed no acute process. Chest x- ray showed no acute cardiopulmonary disease. She was given a dose of vancomycin and Rocephin in the emergency department. She was started on IV fluids. Arrangements were made for admission. Patient seen and examined at bedside. Her daughter and granddaughter who is a nurse are present and help with history gathering. On arrival into the room the patient takes she is feeling nauseous and she is coughing somewhat but this self resolved. She states that yesterday she was going from the bathroom to the living room when she fell on the floor. She does state she felt funny first however it is difficult to discern whether this is related to nausea or presyncope-type feelings. She does state that she tripped. She denies any ongoing chest pain or unusual shortness of breath. She has not had any recent fevers or chills. No coughing. She was found lying down. Urine and stool. She has had 2 issues with fecal incontinence here. She has chronic urinary incontinence and wears depends. Patient uses a 4 wheeled walker. She reports that she has a alert at home, however it stays in the basket of her walker. Review of Systems Pertinent positives and negatives as discussed in HPI, a complete review of systems was performed and all other systems are negative. Past Medical History Past Medical History: Hyperlipidemia, Hypertension, Myocardial Infarction (SC), Thyroid Disorder Last Myocardial Infarction Date:: 1984 History of Any Multi-Drug Resistant Organisms: None Reported Past Surgical History: Appendectomy, Cholecystectomy, Joint Replacement, Tonsillectomy Additional Past Surgical History / Comment(s): RT TOTAL KNEE ARTHROPLASTY Past Anesthesia/Blood Transfusion Reactions: No Reported Reaction Past Psychological History: No Psychological Hx Reported Smoking Status: Never smoker Past Alcohol Use History: None Reported Past Drug Use History: None Reported Additional History: Lives alone, has a life alert, uses 4 wheeled walker. - Past Family History family Additional Family Medical History / Comment(s): no hx of significant stroke Medications and Allergies Home Medications Medication Instructions Recorded Confirmed Type Levothyroxine Sodium [Synthroid] 125 mcg PO MOTUWETHFRSA 06/05/14 08/08/19 History Losartan Potassium 100 mg PO DAILY 06/05/14 08/08/19 History Pravastatin Sodium [Pravachol] 80 mg PO DAILY 06/05/14 08/08/19 History Carvedilol [Coreg] 3.125 mg PO BID 08/08/19 08/08/19 History Furosemide [Lasix] 20 mg PO DAILY 08/08/19 08/08/19 History Levothyroxine Sodium [Synthroid] 187.5 mcg PO TUBBS 08/08/19 08/08/19 History predniSONE [Deltasone] 60 mg PO DAILY #12 tab 08/09/19 Rx valACYclovir HCL [Valtrex] 1,000 mg PO TID #15 tablet 08/09/19 Rx Allergies Allergy/AdvReac Type Severity Reaction Status Date / Time Sulfa (Sulfonamide Allergy Rash/Hives Verified 11/01/19 13:27 Antibiotics) Physical Exam Osteopathic Statement: *. No significant issues noted on an osteopathic structural exam other than those noted in the History and Physical/Consult. Vitals: Vital Signs Temp Pulse Resp BP Pulse Ox 11/01/19 13:23 97.6 F 71 18 175/92 95 Intake and Output 11/01/19 11/01/19 11/01/19 06:59 14:59 22:59 Other: Weight 108.862 kg General: ill appearing, no distress, appears at stated age, Obese Derm: Erythema and warmth right lower extremity with 0.5 cm skin tear, + bruising right arm and right 4th and 5th toe, warm, dry Head: atraumatic, normocephalic, symmetric Eyes: EOMI, no lid lag, anicteric sclera, pupils equal round reactive to light ENT: Nose and ears atraumatic, no thrush, no pharyngeal erythema Neck: No thyromegaly, no cervical lymphadenopathy, trachea midline, supple Mouth: no lip lesion, mucus membranes moist Cardiovascular: S1S2 reg, no murmur, positive posterior tibial pulse bilateral, trace edema, capillary refill less than 2 seconds Lungs: Faint wheeze bilateral , no accessory muscle use Abdominal: soft, nontender to palpation, no guarding, no appreciable organomegaly, normal bowel sounds Ext: no gross muscle atrophy, muscle strength 5 out of 5 in bilateral upper extremities grossly, 3/5 right lower extremity and 4/5 left lower extremity, no contractures, Neuro: CN II-XI grossly intact, light touch intact all 4 extremities, finger to nose within normal limits, Psych: Alert, oriented, appropriate affect Results CBC & Chem 7: 11/01/19 13:30 11/01/19 13:30 Labs: Abnormal Lab Results - Last 24 Hours (Table) 11/01/19 11/01/19 11/01/19 Range/Units 13:30 13:30 15:50 WBC 11.3 H (3.8-10.6) k/uL Plt Count 136 L (150-450) k/uL Neutrophils # 8.7 H (1.3-7.7) k/uL BUN 22 H (7-17) mg/dL AST 90 H (14-36) U/L Creatine Kinase 1300 H* (30-135) U/L Urine Appearance Cloudy H (Clear) Urine Protein 1+ H (Negative) Urine Ketones Trace H (Negative) Urine Blood Moderate H (Negative) Urine Nitrite Positive H (Negative) Ur Leukocyte Esterase Large H (Negative) Urine RBC 36 H (0-5) /hpf Urine WBC >182 H (0-5) /hpf Urine Bacteria Many H (None) /hpf Urine Mucus Rare H (None) /hpf Urine Yeast (Budding) Few H (None) /hpf Comments: pelvic x-ray Chest x-ray: report reviewed CT Scan - head: report reviewed Thrombosis Risk Factor Assmnt - DVT/VTE Prophylaxis DVT/VTE Prophylaxis: Mechanical Prophylaxis ordered Assessment and Plan Assessment: Right lower extremity cellulitis with wound - Unasyn and vanco - await blood cultures - pain control UTI, POA - await cultures - unasyn Genrealized weakness with fall - fall precuations - PT/OT evaluation Dermatitis of the groin - nystatin - keep clean and dry Elevated creatinine kinase - IVF - Follow to ensure that it doesn't elevated Elevated AST - Likely due to muscle breakdown - Repeat in AM HTN, elevated on discharge - losartan and coreg - follow BP The patient is admitted with an anticipated greater than 2 midnight stay for marine luation of right lower extremity cellulitis, fall, weakness. Surrogate decision-maker: chas Sarah CODE STATUS:Full, no prolonged mechanical ventilation DVT prophylaxis: SCDs Discussed with: Patient, nursing, ED physician, and family Anticipated discharge date: 2-[address]: home with home health A total of 65 minutes was spent on the care of this complex patient more than 50% of the time was spent in counseling and care coordination.
[2019-11-01] MEDS: AMPICILLIN-SULBACTAM 3 GM in SODIUM CHLORIDE 0.9% 100 ML IVPB SCH (23:47)
[2019-11-02] MEDS: SODIUM CHLORIDE 0.9% 1,000 ML IV SCH ×2 (03:07→12:59)
[2019-11-02] MEDS: NYSTATIN 100,000 UNIT/GM POWD 15 GM TOPICAL SCH ×4 (03:07→21:41)
[2019-11-02] MEDS: AMPICILLIN-SULBACTAM 3 GM in SODIUM CHLORIDE 0.9% 100 ML IVPB SCH ×4 (03:24→17:17)
[2019-11-02 09:44] LABS: HGB 13.5 gm/dL (11.4-16.0); MCH 29.8 pg (25.0-35.0); MCHC 31.3 g/dL (31.0-37.0); MCV 95.3 fL (80.0-100.0); Mean Platelet Volume 8.4; Platelet Count 150 k/uL (150-450); RBC 4.52 m/uL (3.80-5.40); RDW 13.5 % (11.5-15.5)
[2019-11-02 09:57] LABS: ALT 31 U/L (4-34); AST 73 U/L (14-36); African American GFR (CKD) >90 (>60 ml/min/1.73 sqM); Albumin 3.1 g/dL (3.5-5.0); Alkaline Phosphatase 106 U/L (38-126); Anion Gap 6 mmol/L; Blood Urea Nitrogen 21 mg/dL (7-17); Calcium 9.3 mg/dL (8.4-10.2); Carbon Dioxide 28 mmol/L (22-30); Chloride 107 mmol/L (98-107); Glucose 106 mg/dL (74-99); Magnesium 1.9 mg/dL (1.6-2.3); Non-African American GFR(CKD) 81 (>60 ml/min/1.73 sqM); Potassium 4.1 mmol/L (3.5-5.1); Sodium 141 mmol/L (137-145); Total Bilirubin 0.5 mg/dL (0.2-1.3); Total Protein 6.1 g/dL (6.3-8.2)
[2019-11-02] MEDS: VANCOMYCIN 1,750 MG in SODIUM CHLORIDE 0.9% 500 ML 500 ML IVPB SCH (12:59)
[2019-11-02] MEDS: ENOXAPARIN 40 MG/0.4 ML SYRINGE SQ SCH (13:00)
--- NOTE | 2019-11-02 15:18 | P.PN ---
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 In the emergency department she underwent an extensive evaluation. On arrival she was found to be hypertensive with a blood pressure 175/92. White blood cell count slightly elevated at 11.3, platelets 136, BUN 22, AST 90, creatine kinase 1300. Urinalysis showed significant urinary tract infection. CT brain and spine showed no fracture or dislocation of the cervical spine, no acute intracranial hemorrhage or midline shift with moderate diffuse vertebral atrophy and chronic small vessel ischemic changes. Pelvic x-ray showed no acute process. Chest x- ray showed no acute cardiopulmonary disease. She was given a dose of vancomycin and Rocephin in the emergency department. She was started on IV fluids. Arrangements were made for admission. She had a vast improvement in the redness in her left lower extremity on the morning of 11/01. CPK was improving. Patient seen and examined at bedside. She denies any pain, nausea, headache, chest pain, some shortness of breath, no problems urinating. Objective - Vital Signs Vital signs: Vital Signs Temp 98 F 11/02/19 13:06 Pulse 77 11/02/19 13:06 Resp 17 11/02/19 13:06 BP 187/90 11/02/19 13:06 Pulse Ox 98 11/02/19 13:06 Intake & Output 11/01/19 11/02/19 11/02/19 18:59 06:59 18:59 Intake Total 700 Output Total 350 Balance 350 Weight 108.862 kg Intake: Intake, IV Titration 700 Amount Ampicillin-Sulbactam 3 gm 200 In Sodium Chloride 0.9% 100 ml @ 200 mls/hr IVPB Q6HR [facility] Rx#:[id number] Vancomycin 1,750 mg In 500 Sodium Chloride 0.9% 500 ml 500 ml @ 167 mls/hr IVPB Q16H [facility] Rx#: [id number] Output: Urine 350 - Exam General: non toxic, no distress, appears at stated age, obese Derm:bruising right arm and foot warm, dry Head: atraumatic, normocephalic, symmetric Eyes: EOMI, no lid lag, anicteric sclera Mouth: no lip lesion, mucus membranes moist Cardiovascular: S1S2 reg, no murmur, positive posterior tibial pulse bilateral, Lungs: Decreased bs bilateral, no rhonchi, no rales , no accessory muscle use Abdominal: soft, nontender to palpation, no guarding, no appreciable organomegaly Ext: no gross muscle atrophy, trace edema, no contractures Neuro: CN II-XI grossly intact, no focal neuro deficits Psych: Alert, oriented, appropriate affect - Labs CBC & Chem 7: 11/02/19 09:13 11/02/19 09:13 Labs: Abnormal Lab Results - Last 24 Hours (Table) 11/01/19 11/02/19 11/02/19 Range/Units 15:50 09:13 09:13 WBC 11.0 H (3.8-10.6) k/uL BUN 21 H (7-17) mg/dL Glucose 106 H (74-99) mg/dL AST 73 H (14-36) U/L Creatine Kinase (30-135) U/L Total Protein 6.1 L (6.3-8.2) g/dL Albumin 3.1 L (3.5-5.0) g/dL Urine Appearance Cloudy H (Clear) Urine Protein 1+ H (Negative) Urine Ketones Trace H (Negative) Urine Blood Moderate H (Negative) Urine Nitrite Positive H (Negative) Ur Leukocyte Esterase Large H (Negative) Urine RBC 36 H (0-5) /hpf Urine WBC >182 H (0-5) /hpf Urine Bacteria Many H (None) /hpf Urine Mucus Rare H (None) /hpf Urine Yeast (Budding) Few H (None) /hpf 11/02/19 Range/Units 09:13 WBC (3.8-10.6) k/uL BUN (7-17) mg/dL Glucose (74-99) mg/dL AST (14-36) U/L Creatine Kinase 561 H (30-135) U/L Total Protein (6.3-8.2) g/dL Albumin (3.5-5.0) g/dL Urine Appearance (Clear) Urine Protein (Negative) Urine Ketones (Negative) Urine Blood (Negative) Urine Nitrite (Negative) Ur Leukocyte Esterase (Negative) Urine RBC (0-5) /hpf Urine WBC (0-5) /hpf Urine Bacteria (None) /hpf Urine Mucus (None) /hpf Urine Yeast (Budding) (None) /hpf Microbiology - Last 24 Hours (Table) 11/01/19 15:50 Urine Culture - Preliminary Urine,Voided Assessment and Plan Assessment: Right lower extremity cellulitis with wound - Unasyn and vanco - await blood cultures - pain control UTI, POA - await cultures - unasyn Genrealized weakness with fall - fall precuations - PT/OT evaluation: recommending PIA Dermatitis of the groin - nystatin - keep clean and dry Elevated creatinine kinase, improving - IVF - Follow to ensure that it doesn't elevated Elevated AST, improving - Likely due to muscle breakdown - Repeat in AM HTN, elevated on discharge - losartan, coreg, and lasix restarted - follow BP DVT prophylaxis: SCDs Discussed with: Patient, nursing, family (left message for daughter Agustina) Anticipated discharge date: 1-[address]: home with home health A total of 35 minutes was spent on the care of this complex patient more than 50% of the time was spent in counseling and care coordination.
[2019-11-02] MEDS: LOSARTAN 50 MG TAB PO SCH (16:12)
[2019-11-02] MEDS: PRAVASTATIN SODIUM 80 MG TAB PO SCH (16:13)
[2019-11-02] MEDS: FUROSEMIDE 20 MG TAB PO SCH (16:13)
[2019-11-02] MEDS: CARVEDILOL 3.125 MG TAB PO SCH (17:17)
[2019-11-03] MEDS: AMPICILLIN-SULBACTAM 3 GM in SODIUM CHLORIDE 0.9% 100 ML IVPB SCH ×5 (00:24→23:38)
[2019-11-03] MEDS: VANCOMYCIN 1,750 MG in SODIUM CHLORIDE 0.9% 500 ML 500 ML IVPB SCH (01:00)
[2019-11-03] MEDS: LEVOTHYROXINE 125 MCG TAB PO SCH (05:36)
[2019-11-03] MEDS: FUROSEMIDE 20 MG TAB PO SCH (07:37)
[2019-11-03] MEDS: LOSARTAN 50 MG TAB PO SCH (07:37)
[2019-11-03] MEDS: CARVEDILOL 3.125 MG TAB PO SCH ×2 (07:37→16:32)
[2019-11-03] MEDS: PRAVASTATIN SODIUM 80 MG TAB PO SCH (07:37)
[2019-11-03] MEDS: ENOXAPARIN 40 MG/0.4 ML SYRINGE SQ SCH (07:38)
[2019-11-03] MEDS: NYSTATIN 100,000 UNIT/GM POWD 15 GM TOPICAL SCH ×3 (07:38→21:34)
[2019-11-03 08:10] LABS: ALT 32 U/L (4-34); AST 59 U/L (14-36); African American GFR (CKD) >90 (>60 ml/min/1.73 sqM); Alkaline Phosphatase 106 U/L (38-126); Anion Gap 6 mmol/L; Blood Urea Nitrogen 17 mg/dL (7-17); Calcium 8.9 mg/dL (8.4-10.2); Carbon Dioxide 28 mmol/L (22-30); Chloride 107 mmol/L (98-107); Glucose 80 mg/dL (74-99); Non-African American GFR(CKD) 84 (>60 ml/min/1.73 sqM); Potassium 3.8 mmol/L (3.5-5.1); Sodium 141 mmol/L (137-145); Total Bilirubin 0.6 mg/dL (0.2-1.3)
[2019-11-03 09:20] LABS: HCT 39.7 % (34.0-46.0); HGB 13.2 gm/dL (11.4-16.0); Hypochromasia Slight; MCH 31.7 pg (25.0-35.0); MCHC 33.3 g/dL (31.0-37.0); MCV 95.2 fL (80.0-100.0); Platelet Count 152 k/uL (150-450); RBC 4.16 m/uL (3.80-5.40); RDW 13.7 % (11.5-15.5); WBC 9.3 k/uL (3.8-10.6)
--- NOTE | 2019-11-03 13:33 | P.PN ---
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 In the emergency department she underwent an extensive evaluation. On arrival she was found to be hypertensive with a blood pressure 175/92. White blood cell count slightly elevated at 11.3, platelets 136, BUN 22, AST 90, creatine kinase 1300. Urinalysis showed significant urinary tract infection. CT brain and spine hiro wed no fracture or dislocation of the cervical spine, no acute intracranial hemorrhage or midline shift with moderate diffuse vertebral atrophy and chronic small vessel ischemic changes. Pelvic x-ray showed no acute process. Chest x- ray showed no acute cardiopulmonary disease. She was given a dose of vancomycin and Rocephin in the emergency department. She was started on IV fluids. Arrangements were made for admission. She had a vast improvement in the redness in her left lower extremity on the morning of 11/01. CPK was improving. She was seen by physical therapy and was unable to ambulate independently. Patient seen and examined at bedside. No pain, breathing is getting better, no nausea, no vomiting. Still having some fecal incontinence. Objective - Vital Signs Vital signs: Vital Signs Temp 97.5 F L 11/03/19 07:25 Pulse 60 11/03/19 07:25 Resp 16 11/03/19 08:00 BP 162/76 11/03/19 07:25 Pulse Ox 96 11/03/19 07:25 Intake & Output 11/02/19 11/03/19 11/03/19 18:59 06:59 18:59 Intake Total 50 Output Total 800 1000 Balance -800 -950 Intake: Oral 50 Output: Urine 800 1000 Other: Voiding Method Indwelling Catheter Indwelling Catheter Indwelling Catheter - Exam General: non toxic, no distress, appears at stated age, obese Derm:bruising right arm and foot, erythema right ankle warm, dry Head: atraumatic, normocephalic, symmetric Eyes: EOMI, no lid lag, anicteric sclera Mouth: no lip lesion, mucus membranes moist Cardiovascular: S1S2 reg, no murmur, positive posterior tibial pulse bilateral, Lungs: Decreased bs bilateral, no rhonchi, no rales , no accessory muscle use Abdominal: soft, nontender to palpation, no guarding, no appreciable organomegaly Ext: no gross muscle atrophy, trace edema, no contractures Neuro: CN II-XI grossly intact, no focal neuro deficits Psych: Alert, oriented, appropriate affect - Labs CBC & Chem 7: 11/03/19 06:40 11/03/19 06:40 Labs: Abnormal Lab Results - Last 24 Hours (Table) 11/03/19 Range/Units 06:40 AST 59 H (14-36) U/L Total Protein 6.0 L (6.3-8.2) g/dL Albumin 3.0 L (3.5-5.0) g/dL Microbiology - Last 24 Hours (Table) 11/01/19 15:50 Urine Culture - Preliminary Urine,Voided Gram Neg Bacilli 11/01/19 15:08 Blood Culture - Preliminary Blood No Growth after 24 hours Assessment and Plan Assessment: Right lower extremity cellulitis with wound - Unasyn, d/c vanco - blood cultures negative to date - pain control UTI, POA - await cultures - unasyn Genrealized weakness with fall - fall precuations - PT/OT evaluation: recommending PIA Dermatitis of the groin - nystatin - keep clean and dry HTN, elevated on discharge - losartan, coreg, and lasix restarted - follow BP Elevated creatinine kinase, improving Elevated AST, improving, no need to follow Likely can be discharged once Urine cultures are available and have prior auth for SNF. DVT prophylaxis: SCDs Discussed with: Patient, nursing, family Anticipated discharge date: 1-[address]: SNF A total of 35 minutes was spent on the care of this complex patient more than 50% of the time was spent in counseling and care coordination.
--- NOTE | 2019-11-03 14:31 | XR ---
EXAMINATION TYPE: XR chest 1V portable DATE OF EXAM: 11/03/2019 COMPARISON: Prior chest x-ray 11/01/2019 HISTORY: Pneumonia TECHNIQUE: Single frontal view of the chest is obtained. FINDINGS: Findings similar to prior exam. There is increased density at the right lung base obscurin g the right hemidiaphragm. No evident pneumothorax. Heart remains enlarged. Aorta is dense. IMPRESSION: Suspect some basilar subsegmental atelectasis versus pneumonia. Cardiomegaly. Follow-up PA and lateral chest x-ray recommended.
[2019-11-04] MEDS: AMPICILLIN-SULBACTAM 3 GM in SODIUM CHLORIDE 0.9% 100 ML IVPB SCH ×3 (05:10→18:27)
[2019-11-04] MEDS: LEVOTHYROXINE 125 MCG TAB PO SCH (05:11)
[2019-11-04] MEDS ORDERED: VANCOMYCIN TROUGH DUE 1 EACH MISC MISCELLANE ONE (07:00)
[2019-11-04 08:25] LABS: African American GFR (CKD) >90 (>60 ml/min/1.73 sqM); Non-African American GFR(CKD) 88 (>60 ml/min/1.73 sqM)
[2019-11-04] MEDS: CARVEDILOL 3.125 MG TAB PO SCH ×2 (08:55→18:25)
[2019-11-04] MEDS: PRAVASTATIN SODIUM 80 MG TAB PO SCH (08:55)
[2019-11-04] MEDS: FUROSEMIDE 20 MG TAB PO SCH (08:55)
[2019-11-04] MEDS: ENOXAPARIN 40 MG/0.4 ML SYRINGE SQ SCH ×2 (08:55→21:35)
[2019-11-04] MEDS: NYSTATIN 100,000 UNIT/GM POWD 15 GM TOPICAL SCH ×3 (08:55→21:35)
[2019-11-04] MEDS: LOSARTAN 50 MG TAB PO SCH (08:55)
[2019-11-04 12:03] LABS: Glucose,Whole Blood 148 mg/dL (75-99)
--- NOTE | 2019-11-04 12:29 | US ---
EXAMINATION TYPE: US venous doppler duplex LE LT DATE OF EXAM: 11/04/2019 12:03 PM COMPARISON: Prior left lower extremity venous ultrasound April 14, 2018 CLINICAL HISTORY: swelling . SIDE PERFORMED: Left TECHNIQUE: The lower extremity deep venous system is examined utilizing real time linear array sonog freddie with graded compression, doppler sonography and color-flow sonography. VESSELS IMAGED: External Iliac Vein (EIV) Common Femoral Vein Deep Femoral Vein Greater Saphenous Vein * Femoral Vein Popliteal Vein Small Saphenous Vein * Proximal Calf Veins (* superficial vessels) Morbidly obese patient with extensive edema. Technically difficult and limited exam. Left Leg: Appears negative for DVT as seen in this limited study. *Unable to see EIV, GSV due to large panus. Proximal calf veins not seen due to swelling and obesity. Unable to compress in upper leg due to extensive edema and patient tolerance. Grayscale, color doppler, spectral doppler imaging performed of the deep veins of the left lower extr emity. There is satisfactory color flow. IMPRESSION: Suboptimal study without acute DVT in the left lower extremity identified on images save d. Fairly moderate subcutaneous edema begins at popliteal level in the left lower extremity.
[2019-11-04] MEDS: INSULIN ASPART (NovoLOG) 100 UNIT/ML VIAL SQ SCH ×3 (12:39→21:35)
--- NOTE | 2019-11-04 14:20 | P.PN ---
Subjective Progress Note Date: 11/04/19 Patient is an 84 yo female admitted 3 days ago after falling at home and being on the ground for 24 hrs. She has been diagnosed with UTI, RLE cellulitis, rhabdo. She has been improving overall, however this morning she had signifcant respiratory distress, wheezing audibly, and is still requiring oxygen which she does not use at home. Denies any fevers or chills, no worsening cough, no chest pain, no headache. Her respiratory distress has improved since this morning. She was planned to be discharged to [facility] this morning which will be delayed due to her worsening respiratory status. Objective - Vital Signs Vital signs: Vital Signs Temp 98.4 F 11/04/19 07:00 Pulse 68 11/04/19 07:00 Resp 18 11/04/19 07:00 BP 167/92 11/04/19 07:00 Pulse Ox 95 11/04/19 07:00 Intake & Output 11/03/19 11/04/19 11/04/19 18:59 06:59 18:59 Output Total 700 900 Balance -700 -900 Output: Urine 700 900 Other: Voiding Method Indwelling Catheter Indwelling Catheter Indwelling Catheter # Bowel Movements 2 - Constitutional General appearance: Present: cooperative, mild distress, obese - EENT Eyes: Present: EOMI, PERRLA - Neck Neck: Present: normal ROM. Absent: lymphadenopathy - Respiratory Respiratory: bilateral: wheezing, negative: rales - Cardiovascular Rhythm: regular Heart sounds: normal: S1, S2 Abnormal Heart Sounds: Absent: systolic murmur - Gastrointestinal General gastrointestinal: Present: normal bowel sounds. Absent: tenderness - Integumentary Integumentary: Present: cellulitis - Neurologic Neurologic: Present: CNII-XII intact - Musculoskeletal Musculoskeletal Comment(s): LLE edema and calf tenderness Musculoskeletal: Present: strength equal bilaterally - Psychiatric Psychiatric: Present: A&O x's 3, appropriate affect - Labs CBC & Chem 7: 11/03/19 06:40 11/04/19 07:29 Labs: Abnormal Lab Results - Last 24 Hours (Table) 11/04/19 11/04/19 Range/Units 07:29 12:02 Creatinine 0.51 L (0.52-1.04) mg/dL POC Glucose (mg/dL) 148 H (75-99) mg/dL Microbiology - Last 24 Hours (Table) 11/01/19 15:50 Urine Culture - Final Urine,Voided Escherichia coli 11/01/19 15:08 Blood Culture - Preliminary Blood No Growth after 48 hours - Imaging and Cardiology Chest x-ray: report reviewed Assessment and Plan (1) Cellulitis Current Visit: Yes Status: Acute Code(s): L03.90 - CELLULITIS, UNSPECIFIED SNOMED Code(s): 996007179 (2) Rhabdomyolysis Current Visit: Yes Status: Acute Code(s): M62.82 - RHABDOMYOLYSIS SNOMED Code(s): 568497397 (3) COPD exacerbation Current Visit: No Status: Acute Code(s): J44.1 - CHRONIC OBSTRUCTIVE PULMONARY DISEASE W (ACUTE) EXACERBATION SNOMED Code(s): 364824181 Plan: # COPD Exacerbation -new onset today, patient is audibly wheezing and in mild resp distress -will start on Duonbe -added systemic Steroids -supplemental oxygen as need # Acute Hypoxic Respiratory Failure -secondary to above -not on home oxygen, currently on 2L NC -assess need for home oxygen prior to DC # Right lower extremity cellulitis - Improving, continue Unasyn - blood cultures negative to date - pain control -venous Duplex to r/u DVT # UTI -E. coli on urine culture -continue Unasyn # HTN, elevated on discharge - losartan, coreg, and lasix restarted - follow BP # DVT PPX # Disposition -possible DC to [facility] tomorrow Time with Patient: Greater than 30
[2019-11-04] MEDS: methylPREDNISolone SOD SUCCI 125 MG/2 ML VIAL IV SCH (15:58)
[2019-11-04] MEDS: IPRATROPIUM-ALBUTEROL 3 ML NEB INHALATION PRN ×2 (16:10→20:35)
[2019-11-04 16:40] LABS: Glucose,Whole Blood 210 mg/dL (75-99)
[2019-11-04 20:36] LABS: Glucose,Whole Blood 175 mg/dL (75-99)
[2019-11-05] MEDS: AMPICILLIN-SULBACTAM 3 GM in SODIUM CHLORIDE 0.9% 100 ML IVPB SCH ×3 (00:09→12:24)
[2019-11-05] MEDS: methylPREDNISolone SOD SUCCI 125 MG/2 ML VIAL IV SCH ×3 (00:09→15:45)
[2019-11-05 02:13] VITALS: TEMP 97.6
[2019-11-05] MEDS: LEVOTHYROXINE 125 MCG TAB PO SCH (05:46)
[2019-11-05 07:07] LABS: Glucose,Whole Blood 125 mg/dL (75-99)
[2019-11-05] MEDS: INSULIN ASPART (NovoLOG) 100 UNIT/ML VIAL SQ SCH ×3 (08:04→17:17)
[2019-11-05] MEDS: LOSARTAN 50 MG TAB PO SCH (08:50)
[2019-11-05] MEDS: NYSTATIN 100,000 UNIT/GM POWD 15 GM TOPICAL SCH ×2 (08:51→15:45)
[2019-11-05] MEDS: IPRATROPIUM-ALBUTEROL 3 ML NEB INHALATION PRN ×3 (08:51→17:05)
[2019-11-05] MEDS: FUROSEMIDE 20 MG TAB PO SCH (08:51)
[2019-11-05] MEDS: PRAVASTATIN SODIUM 80 MG TAB PO SCH (08:51)
[2019-11-05] MEDS: ENOXAPARIN 40 MG/0.4 ML SYRINGE SQ SCH (08:51)
[2019-11-05] MEDS: CARVEDILOL 3.125 MG TAB PO SCH ×2 (08:51→17:17)
[2019-11-05 11:35] LABS: Glucose,Whole Blood 124 mg/dL (75-99)
--- NOTE | 2019-11-05 12:56 | P.DS ---
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 In the emergency department she underwent an extensive evaluation. On arrival she was found to be hypertensive with a blood pressure 175/92. White blood cell count slightly elevated at 11.3, platelets 136, BUN 22, AST 90, creatine kinase 1300. Urinalysis showed significant urinary tract infection. CT brain and spine showed no fracture or dislocation of the cervical spine, no acute intracranial hemorrhage or midline shift with moderate diffuse vertebral atrophy and chronic small vessel ischemic changes. Pelvic x-ray showed no acute process. Chest x- ray showed no acute cardiopulmonary disease. She was given a dose of vancomycin and Rocephin in the emergency department. She was started on IV fluids. Arrangements were made for admission. Patient seen and examined at bedside. Her daughter and granddaughter who is a nurse are present and help with history gathering. On arrival into the room the patient takes she is feeling nauseous and she is coughing somewhat but this self resolved. She states that yesterday she was going from the bathroom to the living room when she fell on the floor. She does state she felt funny first however it is difficult to discern whether this is related to nausea or presyncope-type feelings. She does state that she tripped. She denies any ongoing chest pain or unusual shortness of breath. She has not had any recent fevers or chills. No coughing. She was found lying down. Urine and stool. She has had 2 issues with fecal incontinence here. She has chronic urinary incontinence and wears depends. Patient uses a 4 wheeled walker. She reports that she has a alert at home, however it stays in the basket of her walker. Patient was started on broad-spectrum antibiotics, IV fluids. Her kidney function and CPK continued to improve daily until normalized. Antibiotics were changed to Unasyn for the right lower shimmy cellulitis, no growth on cultures today. Patient also had evidence of a UTI with E. coli growing in the urine cultures which was also sensitive to Unasyn. All her electrolyte abnormalities and metabolic derangements continued to improve on a daily basis. Plan was to discharge the patient on 11/04/2019, however that day she developed significant respirator distress, wheezing, and hypoxia. This was believed to be secondary to CPD exacerbation. She was started on IV methylprednisone, duo nebs, and supplemental oxygen. Within 24 hours her wheezing had resolved, dyspnea and hypoxia had significant improved as well. She was able to ambulate on room air with her oxygen saturation only dropping transiently to 89% before recovering back to the mid 90s. Patient will be discharged on the few more days of 20 mg prednisone daily, Augmentin double strength twice a day for 3 more days, and albuterol inhaler, remaining home medications were unchanged. Due to her multiple comorbidities, debility, and obesity, the patient will be discharged to [facility] Physical Exam: - Constitutional General appearance: Present: cooperative, mild distress, obese - EENT Eyes: Present: EOMI, PERRLA -Neck Neck: Present: normal ROM. Absent: lymphadenopathy - Respiratory Respiratory: no wheezing, negative: rales - Cardiovascular Rhythm: regular Heart sounds: normal: S1, S2 Abnormal Heart Sounds: Absent: systolic murmur - Gastrointestinal General gastrointestinal: Present: normal bowel sounds. Absent: tenderness - Integumentary Integumentary: Present: cellulitis LLE improving, minimal tenderness - Neurologic Neurologic: Present: CNII-XII intact - Musculoskeletal Musculoskeletal Comment(s): LLE edema and calf tenderness improving Musculoskeletal: Present: strength equal bilaterally -Psychiatric Psychiatric: Present: A&O x's 3, appropriate affect Discharge diagnosis: # COPD Exacerbation -Prednisone 20 mg for additional 5 days -Albuterol inhaler as needed -Supplemental oxygen as needed # Acute Hypoxic Respiratory Failure -Resolved -Secondary to above # Right lower extremity cellulitis -Improving, continue by mouth Augmentin for 3 more days # UTI -E. coli on urine culture -continue Augmentin # HTN - losartan, coreg, and lasix Patient Condition at Discharge: Fair Plan - Discharge Summary New Discharge Prescriptions: New Albuterol Sulfate [Albuterol Sulfate Hfa] 1 puff INHALATION Q4-6H PRN 30 Days #1 inhaler PRN Reason: Shortness Of Breath Or Wheezing Amoxic-Pot Clav 875-125Mg [Augmentin 875-125] 1 tab PO BID 3 Days #6 tab predniSONE [Deltasone] 20 mg PO DAILY 5 Days #5 tab Nystatin 100,000 Unit/gm Powd [Mycostatin Powder] 1 applic TOPICAL TID #1 applic Continue Carvedilol [Coreg] 3.125 mg PO BID #30 tab Furosemide [Lasix] 20 mg PO DAILY 30 Days #30 tab Losartan Potassium 100 mg PO DAILY 30 Days #30 tab Pravastatin Sodium [Pravachol] 80 mg PO DAILY 30 Days #30 tab Levothyroxine Sodium [Synthroid] 125 mcg PO DAILY 30 Days #30 tab Discharge Medication List Albuterol Sulfate [Albuterol Sulfate Hfa] 1 puff INHALATION Q4-6H PRN 30 Days #1 inhaler 11/05/19 [Rx] Amoxic-Pot Clav 875-125Mg [Augmentin 875-125] 1 tab PO BID 3 Days #6 tab 11/05/19 [Rx] Carvedilol [Coreg] 3.125 mg PO BID #30 tab 11/05/19 [Rx] Furosemide [Lasix] 20 mg PO DAILY 30 Days #30 tab 11/05/19 [Rx] Levothyroxine Sodium [Synthroid] 125 mcg PO DAILY 30 Days #30 tab 11/05/19 [Rx] Losartan Potassium 100 mg PO DAILY 30 Days #30 tab 11/05/19 [Rx] Nystatin 100,000 Unit/gm Powd [Mycostatin Powder] 1 applic TOPICAL TID #1 applic 11/05/19 [Rx] Pravastatin Sodium [Pravachol] 80 mg PO DAILY 30 Days #30 tab 11/05/19 [Rx] predniSONE [Deltasone] 20 mg PO DAILY 5 Days #5 tab 11/05/19 [Rx] Follow up Appointment(s)/Referral(s): Neo Tarango MD [Primary Care Provider] - 1-2 days Discharge Disposition: TRANSFER TO [facility]
[2019-11-05 15:00] VITALS: BP 157/70; RESP 17
[2019-11-05 16:56] LABS: Glucose,Whole Blood 151 mg/dL (75-99)
[2019-11-05 17:17] VITALS: PULSE 66
== END 2019-11-05 18:03 | DRG 602 ==
LOC: EC 13:16 → 4SSUR 14:52
PROVIDERS: ADMIT Internal Medicine; ATTEND Internal Medicine
DX: L03.115 Cellulitis of right lower limb (principal); J96.01 Acute respiratory failure with hypoxia; M62.82 Rhabdomyolysis; J44.1 Chronic obstructive pulmonary disease with (acute) exacerbation; N39.0 Urinary tract infection, site not specified; Z68.41 Body mass index [BMI] 40.0-44.9, adult; I11.0 Hypertensive heart disease with heart failure; I50.9 Heart failure, unspecified; B96.20 Unspecified Escherichia coli [E. coli] as the cause of diseases classified elsewhere; E03.9 Hypothyroidism, unspecified; E66.9 Obesity, unspecified; E78.5 Hyperlipidemia, unspecified; E86.0 Dehydration; I25.10 Atherosclerotic heart disease of native coronary artery without angina pectoris; I25.2 Old myocardial infarction; L30.9 Dermatitis, unspecified; R32 Unspecified urinary incontinence; R15.9 Full incontinence of feces; Z11.59 Encounter for screening for other viral diseases; L53.9 Erythematous condition, unspecified; Z79.890 Hormone replacement therapy; Z79.899 Other long term (current) drug therapy; Z79.52 Long term (current) use of systemic steroids; Z96.651 Presence of right artificial knee joint; Z90.49 Acquired absence of other specified parts of digestive tract; Z88.2 Allergy status to sulfonamides; W18.30XA Fall on same level, unspecified, initial encounter; Y92.009 Unspecified place in unspecified non-institutional (private) residence as the place of occurrence of the external cause
CPT/HCPCS: 36415; 70450; 71045; 71046; 72125; 72170; 80053; 80202; 81001; 82550; 82565; 83605; 83735; 85025; 85027; 85610; 85730; 87040; 87077; 87086; 87186; 93005; 94640; 96361; 96365; 96366; 96367; 96375; 99285

== ENCOUNTER → 2020-01-17 | Outpatient (CLI) | payer MEDICARE, OTHER | END | disposition home or self-care (01) | LOC: LABWHC1 14:43 | PROVIDERS: ATTEND Thoracic Surgery (Cardiothoracic Vascular Surgery) | DX: I83.012 Varicose veins of right lower extremity with ulcer of calf (principal); I83.022 Varicose veins of left lower extremity with ulcer of calf; L97.212 Non-pressure chronic ulcer of right calf with fat layer exposed; L97.222 Non-pressure chronic ulcer of left calf with fat layer exposed | CPT/HCPCS: 36415; 84134 ==

== ENCOUNTER → 2020-06-04 | Outpatient (CLI) | payer MEDICARE, OTHER ==
--- NOTE | 2020-06-04 15:34 | CT ---
EXAMINATION TYPE: CT brain cspine wo con DATE OF EXAM: 06/04/2020 COMPARISON: CT brain and cervical spine November 01, 2019 HISTORY: fall injury with headache and neck pain CT DLP: 1706 mGycm. Automated Exposure Control for Dose Reduction was Utilized. TECHNIQUE: CT scan of the head and cervical spine are performed without contrast. FINDINGS: There is no acute intracranial hemorrhage or midline shift identified. Diffuse ventricula r and sulcal prominence redemonstrated. Degree of ventricular prominence slightly out of proportion t o degree of sulcal effacement similar to prior. Normal pressure hydrocephalus not excluded. Correlate clinically. There is a low attenuation in the deep and periventricular white matter redemonstrated . The calvarium is intact. Patchy cerumen left external auditory canal. The globes are intact and the visualized sinuses are clear. Cervical spine is visualized in its entirety from C1 through upper thoracic levels and demonstrates l oss of normal cervical curvature without evidence of acute fracture or dislocation. Prevertebral sof t tissue appears within normal limits. The C1-C2 articulation is within normal limits on the coronal images. Vertebral body heights are maintained. Slight grade 1 anterolisthesis C3 on C4 and C4 on C5 . Moderate to severe disc space narrowing C5-C6 and C6-C7 levels with moderate anterior spurring. Spi nal canal grossly preserved. Axial images show multilevel left-sided uncovertebral facet degenerative changes contributing to multilevel neural foraminal narrowing. Lung apices show a 1.5 cm focus of gr oundglass opacity axial image 75 could reflect early acute infectious process. Additional smaller are as may be present in visualized upper lungs but there is motion artifact degradation. Correlate clini robert. IMPRESSION: 1. There is no acute fracture or dislocation evident in the cervical spine. Multilevel spondylolisthe sis and degenerative changes. 2. No acute intracranial hemorrhage or midline shift is seen. [id number] diffuse cerebral and t ree and moderate to advanced chronic small vessel ischemic changes redemonstrated.
== END | disposition home or self-care (01) ==
LOC: RADCTMAIN 14:39
PROVIDERS: ATTEND Internal Medicine
DX: M43.12 Spondylolisthesis, cervical region (principal); M47.812 Spondylosis without myelopathy or radiculopathy, cervical region; I67.82 Cerebral ischemia
CPT/HCPCS: 70450; 72125

== ENCOUNTER 2020-10-05 08:20 | Inpatient (IN) | payer MEDICARE ==
[2020-10-05] MEDS ORDERED: SODIUM CHLORIDE 0.9% 500 ML 500 ML IV ONE (08:52)
[2020-10-05 09:01] LABS: Basophils # (A) 0.1 k/uL (0-0.2); Basophils % (A) 1 %; Eosinophils # (A) 0.3 k/uL (0-0.7); Eosinophils % (A) 5 %; HCT 40.6 % (34.0-46.0); HGB 13.7 gm/dL (11.4-16.0); Lymphocytes # (A) 1.3 k/uL (1.0-4.8); Lymphocytes % (A) 23 %; MCH 32.2 pg (25.0-35.0); MCHC 33.7 g/dL (31.0-37.0); MCV 95.4 fL (80.0-100.0); Mean Platelet Volume 8.2; Monocytes # (A) 0.4 k/uL (0-1.0); Monocytes % (A) 8 %; Neutrophils # (A) 3.6 k/uL (1.3-7.7); Neutrophils % (A) 63 %; Platelet Count 120 k/uL (150-450); RBC 4.26 m/uL (3.80-5.40); RDW 13.4 % (11.5-15.5); WBC 5.7 k/uL (3.8-10.6)
--- NOTE | 2020-10-05 09:04 | ED ---
General Adult HPI - General Chief complaint: Fall Stated complaint: fall Time Seen by Provider: 10/05/20 08:27 Source: patient Mode of arrival: EMS Limitations: physical limitation - History of Present Illness Initial comments: Patient is an 85-year-old female, presenting to the emergency department via EMS after she fell last night. Patient is complaining of left ankle pain. She states that she was standing and went to turn and twisted her left ankle. She didn't fall down, she denies hitting her head, she denies any other injuries from this fall. She denies any previous injuries to her left ankle or left knee.. Patient lives in an assisted living facility and staff states that she seems a bit more confused than usual. They stated that she has frequent UTIs. Patient denies any chest pain or short of breath, no abdominal pain, no nausea or vomiting. There has been no fevers or chills. She has no further complaints at this time. Upon arrival to the ER, her vitals are stable. - Related Data Home Medications Medication Instructions Recorded Confirmed Acetaminophen Tab [Tylenol Tab] 1,000 mg PO Q4H PRN 10/05/20 10/05/20 Carvedilol [Coreg] 6.25 mg PO BID 10/05/20 10/05/20 Furosemide [Lasix] 60 mg PO DAILY 10/05/20 10/05/20 Melatonin 3 mg PO HS 10/05/20 10/05/20 Pravastatin Sodium 80 mg PO HS 10/05/20 10/05/20 Spironolactone [Aldactone] 25 mg PO BID 10/05/20 10/05/20 Previous Rx's Medication Instructions Recorded Albuterol Sulfate [Albuterol 1 puff INHALATION Q4-6H PRN 30 11/05/19 Sulfate Hfa] Days #1 inhaler Levothyroxine Sodium [Synthroid] 125 mcg PO DAILY 30 Days #30 tab 11/05/19 Allergies Allergy/AdvReac Type Severity Reaction Status Date / Time Sulfa (Sulfonamide Allergy Rash/Hives Verified 10/05/20 11:21 Antibiotics) Review of Systems ROS Statement: Those systems with pertinent positive or pertinent negative responses have been documented in the HPI. ROS Other: All systems not noted in ROS Statement are negative. Past Medical History Past Medical History: Hyperlipidemia, Hypertension, Myocardial Infarction ([place]), Thyroid Disorder Additional Past Medical History / Comment(s): frequent uti Last Myocardial Infarction Date:: 1984 History of Any Multi-Drug Resistant Organisms: None Reported Past Surgical History: Appendectomy, Cholecystectomy, Joint Replacement, Tonsillectomy Additional Past Surgical History / Comment(s): RT TOTAL KNEE ARTHROPLASTY Past Anesthesia/Blood Transfusion Reactions: No Reported Reaction Past Psychological History: No Psychological Hx Reported Smoking Status: Never smoker Past Alcohol Use History: None Reported Past Drug Use History: None Reported - Past Family History family Additional Family Medical History / Comment(s): no hx of significant stroke General Exam - General Exam Comments Initial Comments: GENERAL: Patient is well-developed and well-nourished. Patient is nontoxic and in no acute distress. HEAD: Atraumatic, normocephalic. EYES: Pupils equal round and reactive to light, extraocular movements intact, sclera anicteric, conjunctiva are normal. Eyelids were unremarkable. ENT: TMs normal, nares patent, oropharynx clear without exudates. Moist mucous membranes. NECK: Normal range of motion, supple without lymphadenopathy or JVD. LUNGS: Unlabored respirations. Breath sounds clear to auscultation bilaterally and equal. No wheezes rales or rhonchi. HEART: Regular rate and rhythm without murmurs, rubs or gallops. ABDOMEN: Soft, nontender, normoactive bowel sounds. No guarding, no rebound. No masses appreciated. : Deferred MUSCULOSKELETAL: Patient has some mild pain with palpation of the lateral left ankle, she does have full active range of motion at this time. No obvious deformity. She has bilateral lower extremity swelling. She is neurovascular intact. No clubbing or cyanosis. NEUROLOGICAL: Patient is alert and oriented x 3. Motor and sensory are also intact. Cranial nerves II through XII grossly intact. Symmetrical smile. Normal speech, normal gait. PSYCH: Normal mood, normal affect. SKIN: Warm, Dry, normal turgor, no rashes or lesions noted. Limitations: physical limitation Course Vital Signs 10/05/20 10/05/20 08:28 11:29 Temperature 97.3 F L Pulse Rate 68 79 Respiratory 18 18 Rate Blood Pressure 136/71 115/75 O2 Sat by Pulse 93 L 94 L Oximetry EKG Findings - EKG Comments: EKG Findings:: Accelerated junctional rhythm, T-wave abnormalities, no signs of acute ischemia. Ventricular rate 66, QRS duration 92, QT 384. Medical Decision Making - Medical Decision Making Patient is an 85-year-old female with history of COPD, presenting for left ankle pain as well as increase in confusion according to staff at the assisted living facility. She does live in her own apartment but added assisted-living facility. Her vitals are stable, 93% on room air, afebrile. Showing normal white count, BUN is high at 41, both been high in the past. Urine shows evidence for UTI, urine culture is pending. Chest x-ray also shows right lobe pneumonia. Upon reexamination, patient is satting at 92% on room air. She really has no complaints other than feeling fatigued. Her left ankle x-ray is negative, this is most likely left ankle sprain. Patient will be admitted to start IV antibiotics, her vital signs. Patient is in agreement this plan of care. Covid test is negative. Patient accepted by Dr. Torres. Case discussed with Dr. Zhou. - Lab Data Result diagrams: 10/05/20 08:53 10/05/20 08:53 Lab Results 10/05/20 10/05/20 10/05/20 Range/Units 08:53 08:53 08:53 WBC 5.7 (3.8-10.6) k/uL RBC 4.26 (3.80-5.40) m/uL Hgb 13.7 (11.4-16.0) gm/dL Hct 40.6 (34.0-46.0) % MCV 95.4 (80.0-100.0) fL MCH 32.2 (25.0-35.0) pg MCHC 33.7 (31.0-37.0) g/dL RDW 13.4 (11.5-15.5) % Plt Count 120 L (150-450) k/uL MPV 8.2 Neutrophils % 63 % Lymphocytes % 23 % Monocytes % 8 % Eosinophils % 5 % Basophils % 1 % Neutrophils # 3.6 (1.3-7.7) k/uL Lymphocytes # 1.3 (1.0-4.8) k/uL Monocytes # 0.4 (0-1.0) k/uL Eosinophils # 0.3 (0-0.7) k/uL Basophils # 0.1 (0-0.2) k/uL PT 10.1 (9.0-12.0) sec INR 0.9 (<1.2) APTT 22.1 (22.0-30.0) sec Sodium (137-145) mmol/L Potassium (3.5-5.1) mmol/L Chloride (98-107) mmol/L Carbon Dioxide (22-30) mmol/L Anion Gap mmol/L BUN (7-17) mg/dL Creatinine (0.52-1.04) mg/dL Est GFR (CKD-EPI)AfAm (>60 ml/min/1.73 sqM) Est GFR (CKD-EPI)NonAf (>60 ml/min/1.73 sqM) Glucose (74-99) mg/dL Calcium (8.4-10.2) mg/dL Total Bilirubin (0.2-1.3) mg/dL AST (14-36) U/L ALT (4-34) U/L Alkaline Phosphatase (38-126) U/L Creatine Kinase (30-135) U/L Troponin I (0.000-0.034) ng/mL Total Protein (6.3-8.2) g/dL Albumin (3.5-5.0) g/dL Urine Color Light Yellow Urine Appearance Cloudy H (Clear) Urine pH 6.5 (5.0-8.0) Ur Specific [place] 1.012 (1.001-1.035) Urine Protein Trace H (Negative) Urine Glucose (UA) Negative (Negative) Urine Ketones Negative (Negative) Urine Blood Negative (Negative) Urine Nitrite Negative (Negative) Urine Bilirubin Negative (Negative) Urine Urobilinogen <2.0 (<2.0) mg/dL Ur Leukocyte Esterase Large H (Negative) Urine RBC 3 (0-5) /hpf Urine WBC >182 H (0-5) /hpf Urine WBC Clumps Few H (None) /hpf Urine Bacteria Few H (None) /hpf Hyaline Casts 2 (0-2) /lpf Influenza Type A (PCR) (Not Detectd) Influenza Type B (PCR) (Not Detectd) RSV (PCR) (Not Detectd) SARS-CoV-2 (PCR) (Not Detectd) 10/05/20 10/05/20 10/05/20 Range/Units 08:53 08:53 10:25 WBC (3.8-10.6) k/uL RBC (3.80-5.40) m/uL Hgb (11.4-16.0) gm/dL Hct (34.0-46.0) % MCV (80.0-100.0) fL MCH (25.0-35.0) pg MCHC (31.0-37.0) g/dL RDW (11.5-15.5) % Plt Count (150-450) k/uL MPV Neutrophils % % Lymphocytes % % Monocytes % % Eosinophils % % Basophils % % Neutrophils # (1.3-7.7) k/uL Lymphocytes # (1.0-4.8) k/uL Monocytes # (0-1.0) k/uL Eosinophils # (0-0.7) k/uL Basophils # (0-0.2) k/uL PT (9.0-12.0) sec INR (<1.2) APTT (22.0-30.0) sec Sodium 140 (137-145) mmol/L Potassium 4.6 (3.5-5.1) mmol/L Chloride 101 (98-107) mmol/L Carbon Dioxide 34 H (22-30) mmol/L Anion Gap 5 mmol/L BUN 41 H (7-17) mg/dL Creatinine 0.89 (0.52-1.04) mg/dL Est GFR (CKD-EPI)AfAm 67 (>60 ml/min/1.73 sqM) Est GFR (CKD-EPI)NonAf 59 (>60 ml/min/1.73 sqM) Glucose 206 H (74-99) mg/dL Calcium 9.5 (8.4-10.2) mg/dL Total Bilirubin 0.4 (0.2-1.3) mg/dL AST 39 H (14-36) U/L ALT 27 (4-34) U/L Alkaline Phosphatase 110 (38-126) U/L Creatine Kinase 78 (30-135) U/L Troponin I 0.018 (0.000-0.034) ng/mL Total Protein 6.9 (6.3-8.2) g/dL Albumin 3.7 (3.5-5.0) g/dL Urine Color Urine Appearance (Clear) Urine pH (5.0-8.0) Ur Specific [place] (1.001-1.035) Urine Protein (Negative) Urine Glucose (UA) (Negative) Urine Ketones (Negative) Urine Blood (Negative) Urine Nitrite (Negative) Urine Bilirubin (Negative) Urine Urobilinogen (<2.0) mg/dL Ur Leukocyte Esterase (Negative) Urine RBC (0-5) /hpf Urine WBC (0-5) /hpf Urine WBC Clumps (None) /hpf Urine Bacteria (None) /hpf Hyaline Casts (0-2) /lpf Influenza Type A (PCR) Not Detected (Not Detectd) Influenza Type B (PCR) Not Detected (Not Detectd) RSV (PCR) Not Detected (Not Detectd) SARS-CoV-2 (PCR) Not Detected (Not Detectd) Disposition Clinical Impression: Pneumonia, UTI (urinary tract infection), Dehydration Disposition: ADMITTED IP TO THIS [facility] Condition: Stable Decision Date: 10/05/20 Decision Time: 10:57
[2020-10-05 09:10] LABS: INR 0.9 (<1.2); Partial Thromboplastin Time 22.1 sec (22.0-30.0); Prothrombin Time 10.1 sec (9.0-12.0)
[2020-10-05 09:13] LABS: Albumin 3.7 g/dL (3.5-5.0); Calcium 9.5 mg/dL (8.4-10.2); Potassium 4.6 mmol/L (3.5-5.1); Total Bilirubin 0.4 mg/dL (0.2-1.3); Total Protein 6.9 g/dL (6.3-8.2)
[2020-10-05 09:15] LABS: Appearance,Urine Cloudy (Clear); Bacteria,Urine Few /hpf; Bilirubin,Urine Negative (Negative); Blood,Urine Negative (Negative); Color,Urine Light Yellow; Glucose,Urine (UA) Negative (Negative); Hyaline Casts,Urine 2 /lpf (0-2); Ketones,Urine Negative (Negative); Leukocyte Esterase,Urine Large (Negative); Nitrite,Urine Negative (Negative); PH, Urine 6.5 (5.0-8.0); Protein,Urine Trace (Negative); RBC,Urine 3 /hpf (0-5); Specific Gravity,Urine 1.012 (1.001-1.035); Urobilinogen,Urine <2.0 mg/dL (<2.0); WBC,Urine >182 /hpf (0-5)
--- NOTE | 2020-10-05 10:01 | XR ---
EXAMINATION TYPE: XR chest 2V DATE OF EXAM: 10/05/2020 COMPARISON: 11/03/2019 HISTORY: Pneumonia TECHNIQUE: Frontal and lateral views of the chest are obtained. FINDINGS: There is a large focal area of consolidative opacity in the right lower lobe and right mid dle lobe consistent with a pneumonic infiltrate. There is no pneumothorax or pleural effusion. Pulmonary vasculature is not congested. IMPRESSION: Findings most consistent with pneumonia in the right lung as described above. Short-term follow-up to resolution is recommended.
--- NOTE | 2020-10-05 10:04 | XR ---
Left ankle. Pain following trauma. COMPARISON: None. TECHNIQUE: 3 views of the left ankle were obtained. FINDINGS: There is marked soft tissue swelling over both the medial and lateral malleolus. There is diffuse ost eopenia but no evidence of fracture or dislocation. The ankle mortise is intact. There are vascular c alcifications but no other abnormal soft tissue calcifications. IMPRESSION: Marked soft tissue swelling of the medial and lateral ankle without evidence of acute fracture or dis location.
[2020-10-05] MEDS ORDERED: PNEUMONIA PROTOCOL UTILIZED 1 EACH MISC PO PRN (10:50)
[2020-10-05] MEDS ORDERED: cefTRIAXone IN SWFI 1,000 MG/10 ML SYRINGE IVP STA (10:53)
[2020-10-05] MEDS ORDERED: SODIUM CHLORIDE 0.9% 1,000 ML IV SCH (11:00)
[2020-10-05] MEDS ORDERED: AZITHROMYCIN 500 MG TAB PO SCH (11:00)
[2020-10-05] MEDS ORDERED: ALBUTEROL NEBULIZED 2.5 MG/3 ML INHALATION PRN (11:12)
--- NOTE | 2020-10-05 11:13 | P.HPIM ---
History of Present Illness H&P Date: 10/05/20 Chief Complaint: Fall This is an 85-year-old white female was brought in the emergency room from independent living after she sustained a fall last night. Patient states that her leg gave out because of weakness and twisted her left ankle. She denies head trauma. She denies subjective fever or chills, no hematuria dysuria hematemesis or hematochezia. He denies dizziness or loss of consciousness. She denies subjective fever. She denies cough or shortness of breath. At the time of examination patient is in bed, she does not appear to be in distress. Review of Systems 10 systems reviewed, pertinent positive and negative findings as in HPI. No chest pain, no abdominal pain. Past Medical History Past Medical History: Hyperlipidemia, Hypertension, Myocardial Infarction ([place]), Thyroid Disorder Additional Past Medical History / Comment(s): frequent uti Last Myocardial Infarction Date:: 1984 History of Any Multi-Drug Resistant Organisms: None Reported Past Surgical History: Appendectomy, Cholecystectomy, Joint Replacement, Tonsillectomy Additional Past Surgical History / Comment(s): RT TOTAL KNEE ARTHROPLASTY Past Anesthesia/Blood Transfusion Reactions: No Reported Reaction Past Psychological History: No Psychological Hx Reported Smoking Status: Never smoker Past Alcohol Use History: None Reported Past Drug Use History: None Reported - Past Family History family Additional Family Medical History / Comment(s): no hx of significant stroke Medications and Allergies Home Medications Medication Instructions Recorded Confirmed Type Albuterol Sulfate [Albuterol 1 puff INHALATION Q4-6H PRN 30 11/05/19 Rx Sulfate Hfa] Days #1 inhaler Amoxic-Pot Clav 875-125Mg 1 tab PO BID 3 Days #6 tab 11/05/19 Rx [Augmentin 875-125] Furosemide [Lasix] 20 mg PO DAILY 30 Days #30 tab 11/05/19 Rx Levothyroxine Sodium [Synthroid] 125 mcg PO DAILY 30 Days #30 tab 11/05/19 Rx Losartan Potassium 100 mg PO DAILY 30 Days #30 tab 11/05/19 Rx Nystatin 100,000 Unit/gm Powd 1 applic TOPICAL TID #1 applic 11/05/19 Rx [Mycostatin Powder] Pravastatin Sodium [Pravachol] 80 mg PO DAILY 30 Days #30 tab 11/05/19 Rx carvediloL [Coreg] 3.125 mg PO BID #30 tab 11/05/19 Rx predniSONE [Deltasone] 20 mg PO DAILY 5 Days #5 tab 11/05/19 Rx Allergies Allergy/AdvReac Type Severity Reaction Status Date / Time Sulfa (Sulfonamide Allergy Rash/Hives Verified 10/05/20 08:35 Antibiotics) Physical Exam Vitals: Vital Signs Temp Pulse Resp BP Pulse Ox 10/05/20 08:28 97.3 F L 68 18 136/71 93 L Intake and Output 10/04/20 10/05/20 10/05/20 22:59 06:59 14:59 Other: Weight 117.027 kg Constitutional: No acute distress, conversant, pleasant Eyes: Anicteric sclerae, moist conjunctiva, no lid-lag, PERRLA ENMT: NC/AT,Oropharynx Neck:Supple, FROM, no masses, or JVD Lungs: Decreased breath sounds, no wheezing Cardiovascular: Heart regular in rate and rhythm, No murmurs, gallops, or rubs no peripheral edema Abdominal: Soft Nontender, nom distended, no guarding, no rebound or rigidity, Normoactive bowel sounds Skin: Chronic lower extremity discoloration Extremities:No digital cyanosis No clubbing, 1+ bilateral edema Psychiatric: Alert and oriented to person, place and time, Appropriate affect Intact judgement Neuro: Muscles Strength 5/5 in all 4 extremities, Sensation to light touch grossly present throughout, Cranial nerves II-XII grossly intact. No focal sensory deficits Results CBC & Chem 7: 10/05/20 08:53 10/05/20 08:53 Labs: Abnormal Lab Results - Last 24 Hours (Table) 10/05/20 10/05/20 10/05/20 Range/Units 08:53 08:53 08:53 Plt Count 120 L (150-450) k/uL Carbon Dioxide 34 H (22-30) mmol/L BUN 41 H (7-17) mg/dL Glucose 206 H (74-99) mg/dL AST 39 H (14-36) U/L Urine Appearance Cloudy H (Clear) Urine Protein Trace H (Negative) Ur Leukocyte Esterase Large H (Negative) Urine WBC >182 H (0-5) /hpf Urine WBC Clumps Few H (None) /hpf Urine Bacteria Few H (None) /hpf Assessment and Plan Assessment: 1. Acute UTI unspecified organism or location: Start Rocephin, pending cultures. 2. Right lower lobe pneumonia unspecified organism: Continue Rocephin and Zithromax, oxygen and bronchodilators as indicated. 3. Hypovolemia: Normal saline at 50 mL per hour 4. Morbid obesity: BMI 47.2 5. COPD without exacerbation: Oxygen and bronchodilators as indicated 6. History of CVA with residual findings: Statin 7. Essential hypertension: Continue Coreg and losartan hold Lasix 8. Hyperlipidemia: Continue statin Weakness: Consult PTOT Disposition: Pending clinical progression, back to independent living versus rehab
[2020-10-05 13:02] LABS: Basophils % (A) 1 %; Eosinophils # (A) 0.3 k/uL (0-0.7); Eosinophils % (A) 4 %; HCT 42.4 % (34.0-46.0); HGB 13.8 gm/dL (11.4-16.0); Lymphocytes % (A) 26 %; MCH 31.1 pg (25.0-35.0); MCHC 32.6 g/dL (31.0-37.0); MCV 95.5 fL (80.0-100.0); Mean Platelet Volume 8.1; Monocytes # (A) 0.7 k/uL (0-1.0); Monocytes % (A) 10 %; Neutrophils # (A) 4.2 k/uL (1.3-7.7); Neutrophils % (A) 56 %; Platelet Count 140 k/uL (150-450); RBC 4.44 m/uL (3.80-5.40); WBC 7.5 k/uL (3.8-10.6)
[2020-10-05 13:13] LABS: Albumin 3.8 g/dL (3.5-5.0); Calcium 9.7 mg/dL (8.4-10.2); Potassium 4.4 mmol/L (3.5-5.1); Total Bilirubin 0.4 mg/dL (0.2-1.3); Total Protein 6.9 g/dL (6.3-8.2)
[2020-10-05] MEDS ORDERED: carvediloL 3.125 MG TAB PO SCH (17:30)
[2020-10-05] MEDS: carvediloL 6.25 MG TAB PO SCH (17:38)
[2020-10-05] MEDS: PRAVASTATIN SODIUM 80 MG TAB PO SCH (20:10)
[2020-10-06] MEDS: carvediloL 6.25 MG TAB PO SCH ×2 (07:35→18:11)
[2020-10-06] MEDS: LEVOTHYROXINE 125 MCG TAB PO SCH (07:40)
[2020-10-06] MEDS: LOSARTAN 50 MG TAB PO SCH (07:42)
--- NOTE | 2020-10-06 07:42 | XR ---
EXAMINATION TYPE: XR chest 2V DATE OF EXAM: 10/06/2020 COMPARISON: 10/05/2020 TECHNIQUE: PA and lateral views submitted. HISTORY: Shortness of breath FINDINGS: Bilateral consolidation and small effusion. Interstitial pattern seen. No pneumothorax. Arthropathy o f the shoulder. Heart is enlarged. Findings are stable. IMPRESSION: 1. Stable pleural-parenchymal changes correlate for CHF or pneumonia.
[2020-10-06] MEDS ORDERED: PRAVASTATIN SODIUM 80 MG TAB PO SCH (09:00)
[2020-10-06] MEDS: AZITHROMYCIN 500 MG in SODIUM CHLORIDE 0.9% 250 ML IVPB SCH (09:48)
--- NOTE | 2020-10-06 11:41 | P.PN ---
Subjective Progress Note Date: 10/06/20 Feels better, no chest pain no abdominal pain, no nausea no vomiting no dizziness no shortness of breath. Objective - Vital Signs Vital signs: Vital Signs Temp 97.7 F 10/06/20 07:00 Pulse 64 10/06/20 07:00 Resp 20 10/06/20 07:00 BP 145/76 10/06/20 07:00 Pulse Ox 94 L 10/06/20 07:00 Intake & Output 10/05/20 10/06/20 10/06/20 18:59 06:59 18:59 Intake Total 650 240 Output Total 800 900 Balance -150 -660 Weight 117.027 kg Intake: Intake, IV Titration 650 Amount Sodium Chloride 0.9% 1, 600 000 ml @ 75 mls/hr IV . [id number] [facility] Rx#:[id number] cefTRIAXone 1 gm In 50 Sodium Chloride 0.9% 50 ml @ 100 mls/hr IVPB DAILY [facility] Rx#:[id number] Oral 240 Output: Urine 800 900 Other: Voiding Method Diaper Incontinent External Catheter # Voids 2 5 # Bowel Movements 1 - Exam Constitutional: No acute distress, conversant, pleasant Eyes: Anicteric sclerae, moist conjunctiva, no lid-lag, PERRLA ENMT: NC/AT Neck:Supple, FROM, no masses, or JVD Lungs: Decreased breath sounds, no wheezing Cardiovascular: Heart regular in rate and rhythm, No murmurs, gallops, or rubs no peripheral edema Abdominal: Soft Nontender, nom distended, no guarding, no rebound or rigidity, Normoactive bowel sounds Skin: Chronic lower extremity discoloration Extremities:No digital cyanosis No clubbing, 1+ bilateral edema Psychiatric: Alert and oriented to person, place and time, Appropriate affect Intact judgement Neuro: Muscles Strength 5/5 in all 4 extremities, Cranial nerves II-XII grossly intact. No focal sensory deficits - Labs CBC & Chem 7: 10/05/20 12:26 10/05/20 12:26 Labs: Abnormal Lab Results - Last 24 Hours (Table) 10/05/20 10/05/20 Range/Units 12:26 12:26 Plt Count 140 L (150-450) k/uL Carbon Dioxide 34 H (22-30) mmol/L BUN 39 H (7-17) mg/dL AST 40 H (14-36) U/L Microbiology - Last 24 Hours (Table) 10/05/20 08:53 Urine Culture - Preliminary Urine,Voided Gram Neg Bacilli Assessment and Plan Assessment: 1. Acute UTI unspecified location, gram-negative bacilli: Continue Rocephin, pending cultures. 2. Right lower lobe pneumonia unspecified organism: Continue Rocephin and Zithromax, oxygen and bronchodilators as indicated. 3. Hypovolemia: Normal saline at 50 mL per hour 4. Morbid obesity: BMI 47.2 5. COPD without exacerbation: Oxygen and bronchodilators as indicated 6. History of CVA with residual findings: Statin 7. Essential hypertension: Continue Coreg and losartan hold Lasix 8. Hyperlipidemia: Continue statin 9. Thrombocytopenia: Platelets 140, monitor Weakness: Consult PTOT Disposition: Pending clinical progression, back to independent living versus rehab
[2020-10-06 15:27] LABS: Basophils % (A) 1 %; Eosinophils # (A) 0.3 k/uL (0-0.7); Eosinophils % (A) 5 %; HCT 38.6 % (34.0-46.0); HGB 12.8 gm/dL (11.4-16.0); Lymphocytes # (A) 1.5 k/uL (1.0-4.8); Lymphocytes % (A) 25 %; MCH 31.6 pg (25.0-35.0); MCV 95.5 fL (80.0-100.0); Mean Platelet Volume 8.1; Monocytes # (A) 0.6 k/uL (0-1.0); Monocytes % (A) 10 %; Neutrophils # (A) 3.4 k/uL (1.3-7.7); Neutrophils % (A) 57 %; Platelet Count 106 k/uL (150-450); RBC 4.04 m/uL (3.80-5.40); RDW 13.6 % (11.5-15.5); WBC 5.9 k/uL (3.8-10.6)
[2020-10-06 15:43] LABS: ALT 23 U/L (4-34); AST 34 U/L (14-36); African American GFR (CKD) 71 (>60 ml/min/1.73 sqM); Albumin 3.2 g/dL (3.5-5.0); Albumin/Globulin Ratio 1.1; Alkaline Phosphatase 97 U/L (38-126); Anion Gap 5 mmol/L; Blood Urea Nitrogen 29 mg/dL (7-17); Calcium 9.1 mg/dL (8.4-10.2); Carbon Dioxide 30 mmol/L (22-30); Chloride 106 mmol/L (98-107); Globulin 2.9 g/dL; Glucose 117 mg/dL (74-99); Non-African American GFR(CKD) 61 (>60 ml/min/1.73 sqM); Potassium 4.5 mmol/L (3.5-5.1); Sodium 141 mmol/L (137-145); Total Bilirubin 0.3 mg/dL (0.2-1.3); Total Protein 6.1 g/dL (6.3-8.2)
[2020-10-06] MEDS: PRAVASTATIN SODIUM 80 MG TAB PO SCH (20:48)
[2020-10-06] MEDS ORDERED: LORazepam 1 MG TAB PO STA (22:43)
[2020-10-07] MEDS: LEVOTHYROXINE 125 MCG TAB PO SCH (05:33)
[2020-10-07] MEDS: carvediloL 6.25 MG TAB PO SCH (07:31)
[2020-10-07] MEDS: LOSARTAN 50 MG TAB PO SCH (07:31)
[2020-10-07 09:13] LABS: Basophils # (A) 0.02 X 10*3/uL (0.00-0.10); Basophils % (A) 0.3 %; Eosinophils # (A) 0.32 X 10*3/uL (0.04-0.35); Eosinophils % (A) 4.3 %; HCT 38.8 % (37.2-46.3); Lymphocytes # (A) 1.79 X 10*3/uL (0.90-5.00); MCH 30.8 pg (27.0-32.0); MCHC 30.9 g/dL (32.0-37.0); MCV 99.5 fL (80.0-97.0); Mean Platelet Volume 12.1 fL (9.5-12.2); Monocytes # (A) 0.98 X 10*3/uL (0.20-1.00); Monocytes % (A) 13.1 %; Neutrophils # (A) 4.32 X 10*3/uL (1.80-7.70); Neutrophils % (A) 57.8 %; Platelet Count 109 X 10*3/uL (140-440); RDW 14.1 % (11.5-14.5); WBC 7.47 X 10*3/uL (4.50-10.00)
[2020-10-07 09:25] LABS: African American GFR (CKD) 76.8 (60.0-200.0); Albumin 3.4 g/dL (3.80-4.90); Albumin/Globulin Ratio 1.31 (1.60-3.17); Anion Gap 5.9 mmol/L (4.00-12.00); BUN/Creat Ratio 32.5 Ratio (12.00-20.00); Carbon Dioxide 30.1 mmol/L (21.6-31.8); Globulin 2.6 g/dL (1.6-3.3); Non-African American GFR(CKD) 66.3 (60.0-200.0); Potassium 4.7 mmol/L (3.5-5.5); Total Bilirubin 0.4 mg/dL (0.3-1.2)
[2020-10-07] MEDS: AZITHROMYCIN 500 MG in SODIUM CHLORIDE 0.9% 250 ML IVPB SCH (09:49)
--- NOTE | 2020-10-07 10:33 | P.DS ---
Providers Date of admission: 10/05/20 11:24 Attending physician: Vicky Hartley DO Primary care physician: Barron Villagran MD Hospital Course: HPI: This is an 85-year-old white female was brought in the emergency room from independent living after she sustained a fall last night. Patient states that her leg gave out because of weakness and twisted her left ankle. She denies head trauma. She denies subjective fever or chills, no hematuria dysuria hematemesis or hematochezia. He denies dizziness or loss of consciousness. She denies subjective fever. She denies cough or shortness of breath. At the time of examination patient is in bed, she does not appear to be in distress. Hospital course and treatment: Patient was admitted to the hospital after she sustained a fall, she was found to have an acute UTI with E. coli. She was treated with IV Rocephin be discharged on Augmentin. She also found to have right lower lobe pneumonia unspecified organism associated with Rocephin and Zithromax. She feels much better. She feels that she is back to baseline and wants to go home with home health. Diagnoses upon discharge: 1. Acute UTI E. coli unspecified location 2. Right lower lobe pneumonia unspecified organism 3. Hypovolemia 4. Morbid obesity: BMI 47.2 5. COPD without exacerbation 6. History of CVA with residual findings 7. Essential hypertension 8. Hyperlipidemia 9. Weakness Patient Condition at Discharge: Stable Plan - Discharge Summary New Discharge Prescriptions: New Amoxicillin/Potassium Clav [Augmentin 875-125 Tablet] 1 tab PO Q12HR 7 Days #14 tab Continue Albuterol Sulfate [Albuterol Sulfate Hfa] 1 puff INHALATION Q4-6H PRN 30 Days #1 inhaler PRN Reason: Shortness Of Breath Or Wheezing Levothyroxine Sodium [Synthroid] 125 mcg PO DAILY 30 Days #30 tab Furosemide [Lasix] 60 mg PO DAILY Acetaminophen Tab [Tylenol] 1,000 mg PO Q4H PRN PRN Reason: Pain Spironolactone [Aldactone] 25 mg PO BID Pravastatin Sodium 80 mg PO HS Melatonin 3 mg PO HS Carvedilol [Coreg] 6.25 mg PO BID Discharge Medication List Albuterol Sulfate [Albuterol Sulfate Hfa] 1 puff INHALATION Q4-6H PRN 30 Days #1 inhaler 11/05/19 [Rx] Levothyroxine Sodium [Synthroid] 125 mcg PO DAILY 30 Days #30 tab 11/05/19 [Rx] Acetaminophen Tab [Tylenol] 1,000 mg PO Q4H PRN 10/05/20 [History] Carvedilol [Coreg] 6.25 mg PO BID 10/05/20 [History] Furosemide [Lasix] 60 mg PO DAILY 10/05/20 [History] Melatonin 3 mg PO HS 10/05/20 [History] Pravastatin Sodium 80 mg PO HS 10/05/20 [History] Spironolactone [Aldactone] 25 mg PO BID 10/05/20 [History] Amoxicillin/Potassium Clav [Augmentin 875-125 Tablet] 1 tab PO Q12HR 7 Days #14 tab 10/07/20 [Rx] Follow up Appointment(s)/Referral(s): Barron Villagran MD [Primary Care Provider] - 1-2 days Discharge Disposition: HOME WITH HOME HEALTH SERVICES
--- NOTE | 2020-10-07 10:41 | P.PN ---
Subjective Feels okay, no chest pain no abdominal pain no nausea no vomiting no dizziness no shortness of breath Objective - Vital Signs Vital signs: Vital Signs Temp 97.9 F 10/07/20 07:00 Pulse 66 10/07/20 07:00 Resp 18 10/07/20 07:00 BP 114/69 10/07/20 07:00 Pulse Ox 94 L 10/07/20 07:00 Intake & Output 10/06/20 10/07/20 10/07/20 18:59 06:59 18:59 Intake Total 480 Output Total 1500 300 Balance -1020 -300 Intake: Oral 480 Output: Urine 1500 300 Other: Voiding Method Diaper Incontinent External Catheter # Bowel Movements 1 - Exam Constitutional: No acute distress, conversant, pleasant Eyes: Anicteric sclerae, moist conjunctiva, no lid-lag, PERRLA ENMT: NC/AT Neck:Supple, FROM, no masses, or JVD Lungs: Decreased breath sounds, no wheezing Cardiovascular: Heart regular in rate and rhythm, No murmurs, gallops Abdominal: Soft Nontender, nom distended, no guarding, no rebound or rigidity, Normoactive bowel sounds Skin: Chronic lower extremity discoloration Extremities:No digital cyanosis No clubbing, no bilateral edema Psychiatric: Alert and oriented to person, place and time, Appropriate affect Intact judgement Neuro: Muscles Strength 5/5 in all 4 extremities, Cranial nerves II-XII grossly intact. No focal sensory deficits - Labs CBC & Chem 7: 10/07/20 05:27 10/07/20 05:27 Labs: Abnormal Lab Results - Last 24 Hours (Table) 10/06/20 10/06/20 10/07/20 Range/Units 15:09 15:09 05:27 RBC 3.90 L (4.10-5.20) X 10*6/uL MCV 99.5 H (80.0-97.0) fL MCHC 30.9 L (32.0-37.0) g/dL Plt Count 106 L 109 L (150-450) k/uL BUN 29 H (7-17) mg/dL BUN/Creatinine Ratio (12.00-20.00) Ratio Glucose 117 H (74-99) mg/dL Total Protein 6.1 L (6.3-8.2) g/dL Albumin 3.2 L (3.5-5.0) g/dL Albumin/Globulin Ratio (1.60-3.17) g/dL 10/07/20 Range/Units 05:27 RBC (4.10-5.20) X 10*6/uL MCV (80.0-97.0) fL MCHC (32.0-37.0) g/dL Plt Count (150-450) k/uL BUN (7-17) mg/dL BUN/Creatinine Ratio 32.50 H (12.00-20.00) Ratio Glucose (74-99) mg/dL Total Protein 6.0 L (6.3-8.2) g/dL Albumin 3.40 L (3.5-5.0) g/dL Albumin/Globulin Ratio 1.31 L (1.60-3.17) g/dL Microbiology - Last 24 Hours (Table) 10/05/20 08:53 Urine Culture - Final Urine,Voided Escherichia coli Assessment and Plan Assessment: 1. Acute UTI unspecified location, E. coli: Continue Rocephin 2. Right lower lobe pneumonia unspecified organism: Continue Rocephin and Zithromax, oxygen and bronchodilators as indicated. 3. Hypovolemia: Stop IV fluids 4. Morbid obesity: BMI 47.2 5. COPD without exacerbation: Oxygen and bronchodilators as indicated 6. History of CVA with residual findings: Statin 7. Essential hypertension: Continue Coreg and losartan hold Lasix 8. Hyperlipidemia: Continue statin 9. Thrombocytopenia: Platelets 109, monitor Weakness: Consult PTOT, requiring maximum assistance Disposition: Pending rehab
[2020-10-07 15:17] VITALS: BP 128/75; PULSE 69; RESP 20; TEMP 97.6
== END 2020-10-07 15:50 | DRG 689 ==
LOC: EC 08:20 → 6NMEDSUR 11:24
PROVIDERS: ADMIT Internal Medicine; ATTEND Internal Medicine
DX: N39.0 Urinary tract infection, site not specified (principal); J18.9 Pneumonia, unspecified organism; Z68.42 Body mass index [BMI] 45.0-49.9, adult; J44.0 Chronic obstructive pulmonary disease with (acute) lower respiratory infection; B96.20 Unspecified Escherichia coli [E. coli] as the cause of diseases classified elsewhere; E66.01 Morbid (severe) obesity due to excess calories; D69.6 Thrombocytopenia, unspecified; E78.5 Hyperlipidemia, unspecified; E86.0 Dehydration; E86.1 Hypovolemia; I10 Essential (primary) hypertension; I25.2 Old myocardial infarction; I69.30 Unspecified sequelae of cerebral infarction; S99.912A Unspecified injury of left ankle, initial encounter; X50.1XXA Overexertion from prolonged static or awkward postures, initial encounter; Z20.822 Contact with and (suspected) exposure to COVID-19; Z79.890 Hormone replacement therapy; Z79.899 Other long term (current) drug therapy; Z87.440 Personal history of urinary (tract) infections; Z96.651 Presence of right artificial knee joint; Z90.89 Acquired absence of other organs; Z90.49 Acquired absence of other specified parts of digestive tract; Z88.2 Allergy status to sulfonamides
CPT/HCPCS: 36415; 71046; 80053; 81001; 82550; 84484; 85025; 85610; 85730; 87077; 87086; 87186; 87636; 93005; 96360; 96361; 99285

== ENCOUNTER 2020-10-25 23:24 | Inpatient (IN) | payer MEDICARE, OTHER ==
--- NOTE | 2020-10-26 00:35 | XR ---
EXAMINATION TYPE: XR ankle complete RT DATE OF EXAM: 10/26/2020 COMPARISON: NONE HISTORY: Ankle pain TECHNIQUE: 3 views FINDINGS: Ankle mortise is anatomic. I see no fracture. There is some soft tissue swelling over the l ateral malleolus. There is osteopenia. IMPRESSION: Soft tissue swelling. No fracture seen.
--- NOTE | 2020-10-26 00:36 | XR ---
EXAMINATION TYPE: XR foot complete RT DATE OF EXAM: 10/26/2020 COMPARISON: NONE HISTORY: Pain TECHNIQUE: 3 views FINDINGS: Metatarsals are intact. There is multiple hammertoe deformity. There is osteopenia. There i s deformity of the second and third MP joints. I see no definite focal bone destruction. There is edwardo ntar calcaneal spurring. IMPRESSION: No acute bony abnormality. Multiple hammertoe deformity. Mild hallux valgus. No definite sign of osteomyelitis.
[2020-10-26] MEDS ORDERED: SODIUM CHLORIDE 0.9% 500 ML 500 ML IV STA (02:25)
[2020-10-26] MEDS ORDERED: ACETAMINOPHEN TAB 325 MG TAB PO STA (02:25)
--- NOTE | 2020-10-26 02:34 | ED ---
General Adult HPI <Nico Hernandez Gin - Last Filed: 10/26/20 03:08> - General Source: patient, EMS, RN notes reviewed Mode of arrival: EMS Limitations: no limitations - History of Present Illness -: hour(s) (Started sometime this afternoon) Location: right, lower extremity (Ankle) Radiation: non-radiation Severity scale (1-10): 9 Quality: sharp Consistency: intermittent Improves with: immobilization, rest Worsens with: other (Weightbearing) Associated Symptoms: denies other symptoms <Kofi Thompson - Last Filed: 10/26/20 03:30> - General Chief complaint: Extremity Injury, Lower Stated complaint: Ankle Pain Time Seen by Provider: 10/26/20 00:38 - History of Present Illness Initial comments: 85-year-old white female, alert and oriented 4, presents to the emergency room with right ankle pain 9 out of 10. Patient states she did not injure it but states it is sharp and worse with weightbearing, resolves with rest and elevation. Patient states has not had this pain before. Patient has a history of COPD, obesity, hypertension, and hyperlipidemia. (Kofi Thompson) - Related Data Home Medications Medication Instructions Recorded Confirmed Acetaminophen Tab [Tylenol] 1,000 mg PO Q4H PRN 10/05/20 10/05/20 Carvedilol [Coreg] 6.25 mg PO BID 10/05/20 10/05/20 Furosemide [Lasix] 60 mg PO DAILY 10/05/20 10/05/20 Melatonin 3 mg PO HS 10/05/20 10/05/20 Pravastatin Sodium 80 mg PO HS 10/05/20 10/05/20 Spironolactone [Aldactone] 25 mg PO BID 10/05/20 10/05/20 Previous Rx's Medication Instructions Recorded Albuterol Sulfate [Albuterol 1 puff INHALATION Q4-6H PRN 30 11/05/19 Sulfate Hfa] Days #1 inhaler Levothyroxine Sodium [Synthroid] 125 mcg PO DAILY 30 Days #30 tab 11/05/19 Amoxicillin/Potassium Clav 1 tab PO Q12HR 7 Days #14 tab 10/07/20 [Augmentin 875-125 Tablet] Allergies Allergy/AdvReac Type Severity Reaction Status Date / Time Sulfa (Sulfonamide Allergy Rash/Hives Verified 10/25/20 23:40 Antibiotics) Review of Systems ROS Other: All systems not noted in ROS Statement are negative. <Nico Hernandez - Last Filed: 10/26/20 03:08> ROS Other: All systems not noted in ROS Statement are negative. <Kofi Thompson - Last Filed: 10/26/20 03:30> ROS Statement: Those systems with pertinent positive or pertinent negative responses have been documented in the HPI. Past Medical History Past Medical History: Hyperlipidemia, Hypertension, Myocardial Infarction ([place]), Thyroid Disorder Additional Past Medical History / Comment(s): frequent uti Last Myocardial Infarction Date:: 1984 History of Any Multi-Drug Resistant Organisms: None Reported Past Surgical History: Appendectomy, Cholecystectomy, Joint Replacement, Tonsillectomy Additional Past Surgical History / Comment(s): RT TOTAL KNEE ARTHROPLASTY Past Anesthesia/Blood Transfusion Reactions: No Reported Reaction Past Psychological History: No Psychological Hx Reported Smoking Status: Never smoker Past Alcohol Use History: None Reported Past Drug Use History: None Reported - Past Family History family Additional Family Medical History / Comment(s): no hx of significant stroke <Kofi Thompson - Last Filed: 10/26/20 03:30> General Exam Limitations: no limitations General appearance: alert, in no apparent distress Head exam: Present: atraumatic, normocephalic, normal inspection Eye exam: Present: normal appearance, PERRL, EOMI. Absent: scleral icterus, conjunctival injection, periorbital swelling ENT exam: Present: normal exam, normal oropharynx, mucous membranes moist Neck exam: Present: normal inspection, full ROM. Absent: tenderness, meningismus, lymphadenopathy Respiratory exam: Present: normal lung sounds bilaterally. Absent: respiratory distress, wheezes, rales, rhonchi, stridor, chest wall tenderness, accessory muscle use, decreased breath sounds Cardiovascular Exam: Present: regular rate, normal rhythm, normal heart sounds. Absent: systolic murmur, diastolic murmur, rubs, gallop, clicks GI/Abdominal exam: Present: soft, normal bowel sounds. Absent: distended, tenderness, guarding, rebound, rigid Right Knee exam: Present: normal inspection. Absent: tenderness, swelling, abrasion Lower Leg exam: Present: abrasion (Mid tibia). Absent: laceration, ecchymosis, deformity Ankle exam: Present: full ROM, tenderness, swelling (Right lateral malleolus). Absent: laceration, ecchymosis, deformity, erythema Foot/Toe exam: Present: normal inspection, full ROM. Absent: tenderness Neurovascular tendon exam: Present: no vascular compromise. Absent: pallor Back exam: Present: normal inspection. Absent: tenderness, CVA tenderness (R), CVA tenderness (L) Neurological exam: Present: alert, oriented X3, CN II-XII intact Psychiatric exam: Present: normal affect, normal mood Skin exam: Present: warm, dry, intact, normal color. Absent: rash <Kofi Thompson - Last Filed: 10/26/20 03:30> Course Vital Signs 10/25/20 10/26/20 23:30 02:00 Temperature 98.1 F Pulse Rate 63 72 Respiratory 18 20 Rate Blood Pressure 140/64 141/68 O2 Sat by Pulse 98 89 L Oximetry EKG Findings - EKG Comments: EKG Findings:: EKG shows sinus rhythm 60 HI 180 QRS 76 QTC 427 <Nico Hernandez - Last Filed: 10/26/20 03:08> Medical Decision Making - Lab Data Result diagrams: 10/26/20 02:29 10/26/20 02:29 <Nico Hernandez - Last Filed: 10/26/20 03:08> - Lab Data Result diagrams: 10/26/20 02:29 10/26/20 02:29 <Kofi Thompson - Last Filed: 10/26/20 03:30> - Medical Decision Making X-ray performed of the right foot shows no acute fractures, multiple hammertoe deformity with mild hallux valgus, no osteomyelitis. There is some soft tissue swelling over the lateral malleolus, there is osteopenia but no fracture seen in the right ankle. Patient unable to ambulate complaining of weakness. Case discussed with Dr. Hernandez. Medical records reviewed, dictation by Dr. Orosco on 10/05/2020, states patient was treated for right lower lobe pneumonia. There was a concern for weakness at that time with consults to PT/OT and consideration regarding independent living versus rehab. Patient has a white count of 10.0, hemoglobin and hematocrit 13.7 and 40.3. Glucose level is 134. Chest x-ray compared to film completed on October 06 shows similar subsegmental changes suggesting pulmonary congestion, no pneumothorax, no large pleural effusion, no lobar consolidation. Patient was found to have an oxygen saturation of 89% on room air. Will admit patient for hypoxia with weakness. (Kofi Thompson) - Lab Data Lab Results 10/26/20 10/26/20 10/26/20 Range/Units 02:29 02:29 02:29 WBC 10.0 (3.8-10.6) k/uL RBC 4.30 (3.80-5.40) m/uL Hgb 13.7 (11.4-16.0) gm/dL Hct 40.3 (34.0-46.0) % MCV 93.6 (80.0-100.0) fL MCH 31.8 (25.0-35.0) pg MCHC 34.0 (31.0-37.0) g/dL RDW 13.0 (11.5-15.5) % Plt Count 153 (150-450) k/uL MPV 8.2 Neutrophils % 67 % Lymphocytes % 20 % Monocytes % 8 % Eosinophils % 4 % Basophils % 0 % Neutrophils # 6.6 (1.3-7.7) k/uL Lymphocytes # 2.0 (1.0-4.8) k/uL Monocytes # 0.8 (0-1.0) k/uL Eosinophils # 0.4 (0-0.7) k/uL Basophils # 0.0 (0-0.2) k/uL PT 10.1 (9.0-12.0) sec INR 0.9 (<1.2) APTT 21.6 L (22.0-30.0) sec Sodium 136 L (137-145) mmol/L Potassium 4.6 (3.5-5.1) mmol/L Chloride 97 L (98-107) mmol/L Carbon Dioxide 36 H (22-30) mmol/L Anion Gap 3 mmol/L BUN 36 H (7-17) mg/dL Creatinine 0.74 (0.52-1.04) mg/dL Est GFR (CKD-EPI)AfAm 85 (>60 ml/min/1.73 sqM) Est GFR (CKD-EPI)NonAf 74 (>60 ml/min/1.73 sqM) Glucose 134 H (74-99) mg/dL Calcium 9.9 (8.4-10.2) mg/dL Magnesium 1.8 (1.6-2.3) mg/dL Total Bilirubin 0.6 (0.2-1.3) mg/dL AST 42 H (14-36) U/L ALT 31 (4-34) U/L Alkaline Phosphatase 138 H (38-126) U/L Troponin I (0.000-0.034) ng/mL Total Protein 7.0 (6.3-8.2) g/dL Albumin 3.9 (3.5-5.0) g/dL Urine Color Urine Appearance (Clear) Urine pH (5.0-8.0) Ur Specific [place] (1.001-1.035) Urine Protein (Negative) Urine Glucose (UA) (Negative) Urine Ketones (Negative) Urine Blood (Negative) Urine Nitrite (Negative) Urine Bilirubin (Negative) Urine Urobilinogen (<2.0) mg/dL Ur Leukocyte Esterase (Negative) Urine RBC (0-5) /hpf Urine WBC (0-5) /hpf Ur Squamous Epith Cells (0-4) /hpf Hyaline Casts (0-2) /lpf Urine Mucus (None) /hpf 10/26/20 10/26/20 Range/Units 02:29 02:30 WBC (3.8-10.6) k/uL RBC (3.80-5.40) m/uL Hgb (11.4-16.0) gm/dL Hct (34.0-46.0) % MCV (80.0-100.0) fL MCH (25.0-35.0) pg MCHC (31.0-37.0) g/dL RDW (11.5-15.5) % Plt Count (150-450) k/uL MPV Neutrophils % % Lymphocytes % % Monocytes % % Eosinophils % % Basophils % % Neutrophils # (1.3-7.7) k/uL Lymphocytes # (1.0-4.8) k/uL Monocytes # (0-1.0) k/uL Eosinophils # (0-0.7) k/uL Basophils # (0-0.2) k/uL PT (9.0-12.0) sec INR (<1.2) APTT (22.0-30.0) sec Sodium (137-145) mmol/L Potassium (3.5-5.1) mmol/L Chloride (98-107) mmol/L Carbon Dioxide (22-30) mmol/L Anion Gap mmol/L BUN (7-17) mg/dL Creatinine (0.52-1.04) mg/dL Est GFR (CKD-EPI)AfAm (>60 ml/min/1.73 sqM) Est GFR (CKD-EPI)NonAf (>60 ml/min/1.73 sqM) Glucose (74-99) mg/dL Calcium (8.4-10.2) mg/dL Magnesium (1.6-2.3) mg/dL Total Bilirubin (0.2-1.3) mg/dL AST (14-36) U/L ALT (4-34) U/L Alkaline Phosphatase (38-126) U/L Troponin I 0.012 (0.000-0.034) ng/mL Total Protein (6.3-8.2) g/dL Albumin (3.5-5.0) g/dL Urine Color Yellow Urine Appearance Clear (Clear) Urine pH 5.5 (5.0-8.0) Ur Specific [place] 1.017 (1.001-1.035) Urine Protein Trace H (Negative) Urine Glucose (UA) Negative (Negative) Urine Ketones Negative (Negative) Urine Blood Negative (Negative) Urine Nitrite Negative (Negative) Urine Bilirubin Negative (Negative) Urine Urobilinogen <2.0 (<2.0) mg/dL Ur Leukocyte Esterase Small H (Negative) Urine RBC 3 (0-5) /hpf Urine WBC 18 H (0-5) /hpf Ur Squamous Epith Cells 1 (0-4) /hpf Hyaline Casts 6 H (0-2) /lpf Urine Mucus Rare H (None) /hpf Disposition <Nico Hernandez - Last Filed: 10/26/20 03:08> Is patient prescribed a controlled substance at d/c from ED?: No Decision Date: 10/26/20 Decision Time: 03:30 <Kofi Thompson - Last Filed: 10/26/20 03:30> Clinical Impression: Weakness, Hypoxia Disposition: ADMITTED IP TO THIS HOSP Condition: Fair Referrals: Barron Villagran MD [Primary Care Provider] - 1-2 days
[2020-10-26 02:38] LABS: Basophils % (A) 0 %; Eosinophils # (A) 0.4 k/uL (0-0.7); Eosinophils % (A) 4 %; HCT 40.3 % (34.0-46.0); HGB 13.7 gm/dL (11.4-16.0); Lymphocytes % (A) 20 %; MCH 31.8 pg (25.0-35.0); MCV 93.6 fL (80.0-100.0); Mean Platelet Volume 8.2; Monocytes # (A) 0.8 k/uL (0-1.0); Monocytes % (A) 8 %; Neutrophils # (A) 6.6 k/uL (1.3-7.7); Neutrophils % (A) 67 %; Platelet Count 153 k/uL (150-450)
[2020-10-26 02:47] LABS: Potassium 4.6 mmol/L (3.5-5.1)
[2020-10-26 02:48] LABS: Albumin 3.9 g/dL (3.5-5.0); Calcium 9.9 mg/dL (8.4-10.2); Magnesium 1.8 mg/dL (1.6-2.3); Total Bilirubin 0.6 mg/dL (0.2-1.3)
[2020-10-26 02:53] LABS: INR 0.9 (<1.2); Partial Thromboplastin Time 21.6 sec (22.0-30.0); Prothrombin Time 10.1 sec (9.0-12.0)
--- NOTE | 2020-10-26 03:16 | XR ---
EXAM: XR Chest, 1 View CLINICAL HISTORY: ITS.REASON XR Reason: Weakness TECHNIQUE: Frontal view of the chest. COMPARISON: 10/06/2020 FINDINGS: Lungs: Stable marked is asymmetric elevation the right hemidiaphragm. Perihilar and subsegmental bibasilar opacities, stable to minimally increased from the previous examination. No lobar consolidation. The pulmonary vasculature is stable and somewhat equalized. Pleural space: Unremarkable. No pneumothorax. No large pleural effusion. Heart: Unremarkable. No cardiomegaly. Mediastinum: No significant alteration. The trachea is midline. Bones/joints: Unremarkable. IMPRESSION: Similar subsegmental changes with findings suggesting pulmonary vascular congestion. Please correlate clinically.
[2020-10-26] MEDS ORDERED: NALOXONE 0.4 MG/ML 1 ML VIAL IV PRN (03:26)
[2020-10-26] MEDS ORDERED: ACETAMINOPHEN TAB 325 MG TAB PO PRN (03:26)
[2020-10-26 03:28] LABS: Appearance,Urine Clear (Clear); Bilirubin,Urine Negative (Negative); Blood,Urine Negative (Negative); Color,Urine Yellow; Glucose,Urine (UA) Negative (Negative); Hyaline Casts,Urine 6 /lpf (0-2); Ketones,Urine Negative (Negative); Leukocyte Esterase,Urine Small (Negative); Mucus,Urine Rare /hpf; Nitrite,Urine Negative (Negative); PH, Urine 5.5 (5.0-8.0); Protein,Urine Trace (Negative); RBC,Urine 3 /hpf (0-5); Specific Gravity,Urine 1.017 (1.001-1.035); Squamous Epithelial Cell,Urine 1 /hpf (0-4); Urobilinogen,Urine <2.0 mg/dL (<2.0); WBC,Urine 18 /hpf (0-5)
--- NOTE | 2020-10-26 03:53 | P.HPIM ---
History of Present Illness H&P Date: 10/26/20 Patient is an 85-year-old female with a PMH of hypertension, hyperlipidemia, and hypothyroidism who presented to the emergency room with complaints of right ankle pain and weakness. Patient notes that ever since her discharge from the hospital a few weeks ago, that she has been unable to partake in her ADLs due to overall lack of energy. She notes that she is too weak to walk around the house. She reports a mild right ankle pain with walking but denied any additional complaints. She denied chest discomfort, shortness of breath, nausea, vomiting, palpitations. Denied cough, fever, chills, abdominal pain, diarrhea. She underwent an extensive evaluation in the emergency room with a right foot x- ray showing no acute abnormalities with a chest x-ray showing right subsegmental opacities unchanged from prior. Laboratory evaluation revealed a sodium of 136, chloride 97, CO2 36, BUN 36, creatinine 0.74, glucose 134, AST 42, alk phos 138. Review of Systems Pertinent positives and negatives as discussed in HPI, a complete review of systems was performed and all other systems are negative. Past Medical History Past Medical History: Hyperlipidemia, Hypertension, Myocardial Infarction ([place]), Thyroid Disorder Additional Past Medical History / Comment(s): frequent uti Last Myocardial Infarction Date:: 1984 History of Any Multi-Drug Resistant Organisms: None Reported Past Surgical History: Appendectomy, Cholecystectomy, Joint Replacement, Tonsillectomy Additional Past Surgical History / Comment(s): RT TOTAL KNEE ARTHROPLASTY Past Anesthesia/Blood Transfusion Reactions: No Reported Reaction Past Psychological History: No Psychological Hx Reported Smoking Status: Never smoker Past Alcohol Use History: None Reported Past Drug Use History: None Reported - Past Family History family Additional Family Medical History / Comment(s): no hx of significant stroke Medications and Allergies Home Medications Medication Instructions Recorded Confirmed Type Albuterol Sulfate [Albuterol 1 puff INHALATION Q4-6H PRN 30 11/05/19 10/05/20 Rx Sulfate Hfa] Days #1 inhaler Levothyroxine Sodium [Synthroid] 125 mcg PO DAILY 30 Days #30 tab 11/05/19 10/05/20 Rx Acetaminophen Tab [Tylenol] 1,000 mg PO Q4H PRN 10/05/20 10/05/20 History Carvedilol [Coreg] 6.25 mg PO BID 10/05/20 10/05/20 History Furosemide [Lasix] 60 mg PO DAILY 10/05/20 10/05/20 History Melatonin 3 mg PO HS 10/05/20 10/05/20 History Pravastatin Sodium 80 mg PO HS 10/05/20 10/05/20 History Spironolactone [Aldactone] 25 mg PO BID 10/05/20 10/05/20 History Amoxicillin/Potassium Clav 1 tab PO Q12HR 7 Days #14 tab 10/07/20 Rx [Augmentin 875-125 Tablet] Allergies Allergy/AdvReac Type Severity Reaction Status Date / Time Sulfa (Sulfonamide Allergy Rash/Hives Verified 10/25/20 23:40 Antibiotics) Physical Exam Vitals: Vital Signs Temp Pulse Resp BP Pulse Ox 10/26/20 02:00 72 20 141/68 89 L 10/25/20 23:30 98.1 F 63 18 140/64 98 Intake and Output 10/25/20 10/25/20 10/26/20 14:59 22:59 06:59 Other: Weight 108.862 kg General: non toxic, no distress, appears at stated age, morbidly obese Derm: no unusual rashes/lesions no unusual ecchymoses, warm, dry Head: atraumatic, normocephalic, symmetric Eyes: EOMI, no lid lag, anicteric sclera, pupils equal round reactive to light ENT: Nose and ears atraumatic, no thrush, no pharyngeal erythema Neck: No thyromegaly, no cervical lymphadenopathy, trachea midline, supple Mouth: no lip lesion, mucus membranes moist Cardiovascular: S1S2 reg, no murmur, positive posterior tibial pulse bilateral, no edema, capillary refill less than 2 seconds Lungs: CTA bilateral, no rhonchi, no rales , no accessory muscle use Abdominal: soft, nontender to palpation, no guarding, no appreciable organomegaly, normal bowel sounds, umbilical hernia noted, reducible without tenderness Ext: no gross muscle atrophy, muscle strength 3 out of 5 in all 4 extremities grossly, no contractures, bilateral lower extremity venous stasis changes Neuro: CN II-XI grossly intact, light touch intact all 4 extremities, finger to nose within normal limits, Psych: Alert, oriented, appropriate affect Results CBC & Chem 7: 10/26/20 02:29 10/26/20 02:29 Labs: Abnormal Lab Results - Last 24 Hours (Table) 05/22/21 05/22/21 05/22/21 Range/Units 02:29 02:29 02:30 APTT 21.6 L (22.0-30.0) sec Sodium 136 L (137-145) mmol/L Chloride 97 L (98-107) mmol/L Carbon Dioxide 36 H (22-30) mmol/L BUN 36 H (7-17) mg/dL Glucose 134 H (74-99) mg/dL AST 42 H (14-36) U/L Alkaline Phosphatase 138 H (38-126) U/L Urine Protein Trace H (Negative) Ur Leukocyte Esterase Small H (Negative) Urine WBC 18 H (0-5) /hpf Hyaline Casts 6 H (0-2) /lpf Urine Mucus Rare H (None) /hpf Assessment and Plan Plan: Failure to thrive -Physical therapy consult -Dietitian consult -Patient may need subacute rehab Prerenal azotemia -Likely secondary to poor oral intake and dehydration with concomitant Lasix use -Hold off on Lasix for now -Hold off on any IV fluids at this time and monitor BMP Alkalosis, likely due to contraction with fluid loss -Monitor for now Chronic conditions: Hypertension, hyperlipidemia, hypothyroidism -Continue with home meds DVT prophylaxis -Heparin subq The patient is admitted with an anticipated greater than 2 midnight stay for evaluation of failure to thrive CODE STATUS: Full Code Discussed with: Patient Anticipated discharge date: in am Anticipated discharge place: [facility] A total of 35 minutes was spent on the care of this complex patient more than 50% of the time was spent in counseling and care coordination.
[2020-10-26 07:18] LABS: Calcium 9.6 mg/dL (8.4-10.2); Potassium 4.4 mmol/L (3.5-5.1)
[2020-10-26] MEDS: HEPARIN SODIUM,PORCINE/PF 5,000 UNIT/0.5 ML SYRINGE SQ SCH ×3 (09:28→23:10)
--- NOTE | 2020-10-26 10:49 | P.PN ---
Progress Note - Text Progress Note Date: 10/26/20 I evaluated the patient today independently. I agree with the documented assessment and plan by my colleague earlier this morning with no changes.
[2020-10-26 13:39] VITALS: BMI 43.9
[2020-10-26] MEDS ORDERED: ONDANSETRON 4 MG/2 ML VIAL IVP PRN (15:59)
[2020-10-26] MEDS ORDERED: ALBUTEROL NEBULIZED 2.5 MG/3 ML INHALATION PRN (16:45)
[2020-10-26] MEDS ORDERED: ACETAMINOPHEN TAB 500 MG TAB PO PRN (16:45)
[2020-10-26] MEDS: carvediloL 6.25 MG TAB PO SCH (18:12)
[2020-10-26] MEDS: PRAVASTATIN SODIUM 80 MG TAB PO SCH (19:34)
[2020-10-26] MEDS: MELATONIN 3 MG TABLET PO SCH (19:34)
[2020-10-27] MEDS: LEVOTHYROXINE 125 MCG TAB PO SCH (05:21)
--- NOTE | 2020-10-27 09:23 | P.PN ---
Subjective Progress Note Date: 10/27/20 No new complaints today, patient is resting comfortably. Pending PT eval. Pt requires max assist by nursing for ADLs, home is not a safe discharge plan. Objective - Vital Signs Vital signs: Vital Signs Temp 97.4 F L 10/27/20 08:00 Pulse 61 10/27/20 08:00 Resp 32 H 10/27/20 08:00 BP 146/70 10/27/20 08:00 Pulse Ox 86 L 10/27/20 08:00 Intake & Output 10/26/20 10/27/20 10/27/20 18:59 06:59 18:59 Intake Total 200 Balance 200 Weight 108.862 kg Intake: Oral 200 Other: Voiding Method Diaper Incontinent # Voids 3 1 - Exam Gen: awake, alert HEENT: normocephalic, atraumatic, good hearing acuity, moist mucous membranes Resp: good air exchange, breathing comfortably with no accessory muscle use, bibasilar crackles, diminished inspiratory effort CVS: good distal perfusion x 4,, regular rate and rhythm without murmurs GI: soft, NTTP, ND, appropriate bowel sounds : no SPT, no CVAT, atwood catheter is present MSK: Bilateral trace to 1+ pitting edema, no clubbing Neuro: non-focal, moving all extremities Psych: cooperative, euthymic mood - Labs CBC & Chem 7: 10/26/20 02:29 10/26/20 05:50 Labs: Microbiology - Last 24 Hours (Table) 10/26/20 02:30 Urine Culture - Preliminary Urine,Voided Assessment and Plan Assessment: Physical deconditioning -Physical therapy consult, pending -Dietitian consult, pending -Patient will need subacute rehab Prerenal azotemia -Likely secondary to poor oral intake and dehydration with concomitant Lasix use -Hold off on Lasix for now -Hold off on any IV fluids at this time and monitor BMP Alkalosis, likely due to contraction with fluid loss -Monitor for now Chronic conditions: Hypertension, hyperlipidemia, hypothyroidism -Continue with home meds DVT prophylaxis -Heparin subq The patient is admitted with an anticipated greater than 2 midnight stay for evaluation of failure to thrive CODE STATUS: Full Code Discussed with: Patient Anticipated discharge place: [facility]
[2020-10-27] MEDS: HEPARIN SODIUM,PORCINE/PF 5,000 UNIT/0.5 ML SYRINGE SQ SCH ×3 (09:25→23:26)
[2020-10-27] MEDS: carvediloL 6.25 MG TAB PO SCH ×2 (09:25→16:57)
[2020-10-27] MEDS ORDERED: bisacodyL 10 MG SUPP RECTAL STA (16:56)
[2020-10-27] MEDS: PRAVASTATIN SODIUM 80 MG TAB PO SCH (19:43)
[2020-10-27] MEDS: MELATONIN 3 MG TABLET PO SCH (19:43)
[2020-10-28] MEDS: LEVOTHYROXINE 125 MCG TAB PO SCH (05:32)
[2020-10-28 08:00] VITALS: BP 145/70; PULSE 60; RESP 18; TEMP 97.5
[2020-10-28] MEDS: carvediloL 6.25 MG TAB PO SCH (08:05)
[2020-10-28] MEDS: HEPARIN SODIUM,PORCINE/PF 5,000 UNIT/0.5 ML SYRINGE SQ SCH (08:05)
--- NOTE | 2020-10-28 14:12 | P.DS ---
Providers Date of admission: 10/26/20 04:17 Expected date of discharge: 10/28/20 Attending physician: Keith Hillman MD Primary care physician: Barron Villagran MD Hospital Course: HPI: Patient is an 85-year-old female with a PMH of hypertension, hyperlipidemia, and hypothyroidism who presented to the emergency room with complaints of right ankle pain and weakness. Patient notes that ever since her discharge from the hospital a few weeks ago, that she has been unable to partake in her ADLs due to overall lack of energy. She notes that she is too weak to walk around the house. She reports a mild right ankle pain with walking but denied any additional complaints. She denied chest discomfort, shortness of breath, nausea, vomiting, palpitations. Denied cough, fever, chills, abdominal pain, diarrhea. She underwent an extensive evaluation in the emergency room with a right foot x- ray showing no acute abnormalities with a chest x-ray showing right subsegmental opacities unchanged from prior. Laboratory evaluation revealed a sodium of 136, chloride 97, CO2 36, BUN 36, creatinine 0.74, glucose 134, AST 42, alk phos 138. Hospital Course: Physical deconditioning Patient was brought in for physical deconditioning in light of recent right ankle pain. X-rays of the ankle did not demonstrate any fracture, but did demonstrate some overlying swelling. There is tenderness to palpation of that ankle. By day of discharge, patient reported resolution of her pain at rest. She was evaluated by physical therapy, who noted the patient could stand, but had trouble taking steps. The recommendation of subacute rehab was made to the patient and family, however they prefer to take patient back home to assisted living facility and have her work with physical therapy at home. They're advised that patient did continue to have trouble even with transfers, including to wheelchair without help and remain max assist with nursing while in the hospital. However, they felt patient would be best cared for at home. Therefore, patient is discharged home with home care services with plans to home PT/OT. I advised low threshold for return to the hospital for placement if necessary. Family and patient expressed understanding of her present medical condition, and will follow-up with her physicians as necessary. Her diuretics were temporarily held while in the hospital, will be resumed on discharge. No changes to medications at this time. I spent 31 minutes coordinating in this discharge Assessment: Gen: awake, alert HEENT: normocephalic, atraumatic, good hearing acuity, moist mucous membranes Resp: good air exchange, breathing comfortably with no accessory muscle use, bibasilar crackles, diminished inspiratory effort CVS: good distal perfusion x 4,, regular rate and rhythm without murmurs GI: soft, NTTP, ND, appropriate bowel sounds : no SPT, no CVAT, atwood catheter is present MSK: Bilateral trace to 1+ pitting edema, no clubbing Neuro: non-focal, moving all extremities Psych: cooperative, euthymic mood Patient Condition at Discharge: Good Plan - Discharge Summary Discharge Rx Participant: No New Discharge Prescriptions: Continue RX: Albuterol Sulfate [Albuterol Sulfate Hfa] 1 puff INHALATION Q4-6H PRN 30 Days #1 inhaler PRN Reason: Shortness Of Breath Or Wheezing RX: Levothyroxine Sodium [Synthroid] 125 mcg PO DAILY 30 Days #30 tab RX: Furosemide [Lasix] 60 mg PO DAILY RX: Acetaminophen Tab [Tylenol] 1,000 mg PO Q4H PRN PRN Reason: Pain RX: Spironolactone [Aldactone] 25 mg PO BID RX: Pravastatin Sodium 80 mg PO HS RX: Melatonin 3 mg PO HS RX: Carvedilol [Coreg] 6.25 mg PO BID Discharge Medication List RX: Albuterol Sulfate [Albuterol Sulfate Hfa] 1 puff INHALATION Q4-6H PRN 30 Days #1 inhaler 11/05/19 [Rx] RX: Levothyroxine Sodium [Synthroid] 125 mcg PO DAILY 30 Days #30 tab 11/05/19 [Rx] RX: Acetaminophen Tab [Tylenol] 1,000 mg PO Q4H PRN 10/05/20 [History] RX: Carvedilol [Coreg] 6.25 mg PO BID 10/05/20 [History] RX: Furosemide [Lasix] 60 mg PO DAILY 10/05/20 [History] RX: Melatonin 3 mg PO HS 10/05/20 [History] RX: Pravastatin Sodium 80 mg PO HS 10/05/20 [History] RX: Spironolactone [Aldactone] 25 mg PO BID 10/05/20 [History] Follow up Appointment(s)/Referral(s): Barron Villagran MD [Primary Care Provider] - 10/30/20 4:30 pm () Patient Instructions/Handouts: Weakness (DC) Activity/Diet/Wound Care/Special Instructions: [facility] home care: #[phone] Discharge Disposition: HOME WITH HOME HEALTH SERVICES
== END 2020-10-28 14:07 | disposition home health service (06) | DRG 641 ==
LOC: EC 23:24 → 4SSUR 10-26 04:17
PROVIDERS: ADMIT Internal Medicine; ATTEND Internal Medicine
DX: E86.0 Dehydration (principal); Z68.41 Body mass index [BMI] 40.0-44.9, adult; E87.3 Alkalosis; E03.9 Hypothyroidism, unspecified; E66.01 Morbid (severe) obesity due to excess calories; J44.9 Chronic obstructive pulmonary disease, unspecified; Z20.822 Contact with and (suspected) exposure to COVID-19; M85.871 Other specified disorders of bone density and structure, right ankle and foot; M25.571 Pain in right ankle and joints of right foot; E78.5 Hyperlipidemia, unspecified; R62.7 Adult failure to thrive; I10 Essential (primary) hypertension; I87.8 Other specified disorders of veins; R09.02 Hypoxemia; I25.2 Old myocardial infarction; R32 Unspecified urinary incontinence; Z79.890 Hormone replacement therapy; Z79.899 Other long term (current) drug therapy; Z87.440 Personal history of urinary (tract) infections; Z90.49 Acquired absence of other specified parts of digestive tract; Z90.89 Acquired absence of other organs; Z87.01 Personal history of pneumonia (recurrent); Z96.651 Presence of right artificial knee joint; Z98.890 Other specified postprocedural states; Z71.3 Dietary counseling and surveillance; Z88.2 Allergy status to sulfonamides
CPT/HCPCS: 36415; 71045; 80048; 80053; 81001; 83735; 83880; 84484; 85025; 85610; 85730; 87077; 87086; 87186; 87635; 93005; 94640; 99285

== ENCOUNTER 2021-01-20 10:02 | Inpatient (IN) | payer MEDICARE, OTHER ==
[2021-01-20] MEDS ORDERED: IPRATROPIUM-ALBUTEROL 3 ML NEB INHALATION STA (10:23)
[2021-01-20 10:42] LABS: Basophils # (A) 0.1 k/uL (0-0.2); Basophils % (A) 1 %; Eosinophils # (A) 0.4 k/uL (0-0.7); Eosinophils % (A) 7 %; HCT 47.2 % (34.0-46.0); HGB 15.2 gm/dL (11.4-16.0); Lymphocytes % (A) 16 %; MCHC 32.2 g/dL (31.0-37.0); MCV 99.3 fL (80.0-100.0); Mean Platelet Volume 8.4; Monocytes # (A) 0.5 k/uL (0-1.0); Monocytes % (A) 8 %; Neutrophils # (A) 4.1 k/uL (1.3-7.7); Neutrophils % (A) 65 %; Platelet Count 119 k/uL (150-450); RBC 4.75 m/uL (3.80-5.40); RDW 13.8 % (11.5-15.5); WBC 6.3 k/uL (3.8-10.6)
[2021-01-20 10:56] LABS: Calcium 9.8 mg/dL (8.4-10.2); Potassium 4.3 mmol/L (3.5-5.1); Total Bilirubin 0.6 mg/dL (0.2-1.3); Total Protein 7.2 g/dL (6.3-8.2)
[2021-01-20 11:05] LABS: INR 0.9 (<1.2); Partial Thromboplastin Time 22.6 sec (22.0-30.0)
--- NOTE | 2021-01-20 11:10 | XR ---
EXAMINATION TYPE: XR chest 2V DATE OF EXAM: 01/20/2021 COMPARISON: 10/26/2020 TECHNIQUE: PA and lateral views submitted. HISTORY: Difficulty breathing FINDINGS: Heart enlarged there is bilateral infiltrate and pleural effusion. Diffuse interstitial changes seen. No pneumothorax. Degenerative changes of the spine. IMPRESSION: 1. Correlate for CHF otherwise consider diffuse pneumonia.
--- NOTE | 2021-01-20 12:00 | CT ---
EXAMINATION TYPE: CT chest angio for PE DATE OF EXAM: 01/20/2021 COMPARISON: None HISTORY: Elevated d-dimer. Difficulty breathing. CT DLP: 734.9 mGycm CONTRAST: CT chest with contrast and 3D reconstruction with MIP imaging is performed with IV Contrast, patient injected with 100 mL of Isovue 370. Contrast-enhanced CT of the chest was performed through the course of the pulmonary arteries with robert g and mediastinal window settings submitted. 3D reconstruction with MIP imaging was also performed. PULMONARY ARTERIES: Small scattered filling defects seen within the right upper lobe second and third order branches. LUNGS: The lungs are clear and free of infiltrate. No evidence for atelectasis. No pulmonary nodule or mass is detected. No pleural effusion. Elevation right hemidiaphragm. MEDIASTINUM: Thoracic aorta is of normal caliber. The heart is enlarged. No evidence for mediastinal mass. No mediastinal lymph nodes greater than 1cm. HILAR STRUCTURES: No evidence for mass. No hilar lymph nodes greater than 1 cm. UPPER ABDOMEN: No significant abnormality is seen. IMPRESSION: 1. Findings felt to reflect mild pulmonary embolism.
--- NOTE | 2021-01-20 12:11 | ED ---
General Adult HPI - General Chief complaint: Shortness of Breath Stated complaint: PILAR Time Seen by Provider: 01/20/21 10:14 Source: patient, RN notes reviewed Mode of arrival: EMS Limitations: no limitations - History of Present Illness Initial comments: Patient is an 85-year-old female that presents to the emergency department with shortness of breath. She was given 4 L of oxygen via nasal cannula by EMS and was saturating at 98%. Patient was sitting up in bed and appeared to be fatigued and tired. She denied any other issues or complaints at this time. She denied any injury or trauma. She denied any chest pain headache nausea vomiting diarrhea constipation fever fatigue chills. - Related Data Home Medications Medication Instructions Recorded Confirmed Acetaminophen Tab [Tylenol] 1,000 mg PO Q4H PRN 10/05/20 01/20/21 Carvedilol [Coreg] 6.25 mg PO BID@0500,1900 10/05/20 01/20/21 Furosemide [Lasix] 20 mg PO DAILY@0500 10/05/20 01/20/21 Melatonin 3 mg PO HS@1900 10/05/20 01/20/21 Pravastatin Sodium 80 mg PO HS@1900 10/05/20 01/20/21 Spironolactone [Aldactone] 25 mg PO BID@0500,1900 10/05/20 01/20/21 Furosemide [Lasix] 40 mg PO DAILY@0500 01/20/21 01/20/21 Levothyroxine Sodium [Synthroid] 125 mcg PO DAILY@0500 01/20/21 01/20/21 Previous Rx's Medication Instructions Recorded Albuterol Sulfate [Albuterol 1 puff INHALATION Q4-6H PRN 30 11/05/19 Sulfate Hfa] Days #1 inhaler Allergies Allergy/AdvReac Type Severity Reaction Status Date / Time Sulfa (Sulfonamide Allergy Rash/Hives Verified 01/20/21 11:02 Antibiotics) Review of Systems ROS Statement: Those systems with pertinent positive or pertinent negative responses have been documented in the HPI. ROS Other: All systems not noted in ROS Statement are negative. Past Medical History Past Medical History: Hyperlipidemia, Hypertension, Myocardial Infarction ([place]), Thyroid Disorder Additional Past Medical History / Comment(s): frequent uti Last Myocardial Infarction Date:: 1984 History of Any Multi-Drug Resistant Organisms: None Reported Past Surgical History: Appendectomy, Cholecystectomy, Joint Replacement, Tonsillectomy Additional Past Surgical History / Comment(s): RT TOTAL KNEE ARTHROPLASTY Past Anesthesia/Blood Transfusion Reactions: No Reported Reaction Past Psychological History: No Psychological Hx Reported Smoking Status: Never smoker Past Alcohol Use History: None Reported Past Drug Use History: None Reported - Past Family History family Additional Family Medical History / Comment(s): no hx of significant stroke General Exam Limitations: no limitations General appearance: alert, in no apparent distress Head exam: Present: atraumatic, normocephalic, normal inspection Eye exam: Present: normal appearance, PERRL, EOMI. Absent: scleral icterus, conjunctival injection, periorbital swelling Neck exam: Present: normal inspection Respiratory exam: Present: decreased breath sounds. Absent: respiratory distress, wheezes, rales, rhonchi, stridor Cardiovascular Exam: Present: regular rate, normal rhythm, normal heart sounds. Absent: systolic murmur, diastolic murmur, rubs, gallop, clicks GI/Abdominal exam: Present: soft, normal bowel sounds. Absent: distended, tenderness, guarding, rebound, rigid Extremities exam: Present: normal inspection Neurological exam: Present: alert, oriented X3 Psychiatric exam: Present: normal affect, normal mood Skin exam: Present: warm, dry, intact, normal color. Absent: rash Course Vital Signs 01/20/21 01/20/21 10:07 11:30 Temperature 97.8 F Pulse Rate 59 L 58 L Respiratory 22 24 Rate Blood Pressure 142/71 122/74 O2 Sat by Pulse 90 L 98 Oximetry Medical Decision Making - Medical Decision Making 85-year-old female complaining of shortness of breath. Labs, EKG, conveyor monitor, chest x-ray, 2 L oxygen via nasal cannula ordered. Chest x-ray shows possible CHF or bilateral pneumonia. Labs: D-dimer 1.86 rest of labs unremarkable. CT angiography of the chest ordered due to elevated d-dimer. CT shows mild pulmonary embolism. Lovenox was started at 1 mg/kg 2 times a day Case discussed with Dr. Soliman, patient will be admitted inpatient. I can percuss was consulted and will accept the admit. - Lab Data Result diagrams: 01/20/21 10:30 01/20/21 10:30 Lab Results 01/20/21 01/20/21 01/20/21 Range/Units 10:30 10:30 10:30 WBC 6.3 (3.8-10.6) k/uL RBC 4.75 (3.80-5.40) m/uL Hgb 15.2 (11.4-16.0) gm/dL Hct 47.2 H (34.0-46.0) % MCV 99.3 (80.0-100.0) fL MCH 32.0 (25.0-35.0) pg MCHC 32.2 (31.0-37.0) g/dL RDW 13.8 (11.5-15.5) % Plt Count 119 L (150-450) k/uL MPV 8.4 Neutrophils % 65 % Lymphocytes % 16 % Monocytes % 8 % Eosinophils % 7 % Basophils % 1 % Neutrophils # 4.1 (1.3-7.7) k/uL Lymphocytes # 1.0 (1.0-4.8) k/uL Monocytes # 0.5 (0-1.0) k/uL Eosinophils # 0.4 (0-0.7) k/uL Basophils # 0.1 (0-0.2) k/uL PT 10.0 (9.0-12.0) sec INR 0.9 (<1.2) APTT 22.6 (22.0-30.0) sec D-Dimer 1.86 H (<0.60) mg/L FEU Sodium 138 (137-145) mmol/L Potassium 4.3 (3.5-5.1) mmol/L Chloride 99 (98-107) mmol/L Carbon Dioxide 31 H (22-30) mmol/L Anion Gap 8 mmol/L BUN 31 H (7-17) mg/dL Creatinine 0.83 (0.52-1.04) mg/dL Est GFR (CKD-EPI)AfAm 74 (>60 ml/min/1.73 sqM) Est GFR (CKD-EPI)NonAf 64 (>60 ml/min/1.73 sqM) Glucose 103 H (74-99) mg/dL Plasma Lactic Acid Philip (0.7-2.0) mmol/L Calcium 9.8 (8.4-10.2) mg/dL Total Bilirubin 0.6 (0.2-1.3) mg/dL AST 49 H (14-36) U/L ALT 27 (4-34) U/L Alkaline Phosphatase 135 H (38-126) U/L Troponin I (0.000-0.034) ng/mL NT-Pro-B Natriuret Pep pg/mL Total Protein 7.2 (6.3-8.2) g/dL Albumin 4.0 (3.5-5.0) g/dL 01/20/21 01/20/21 01/20/21 Range/Units 10:30 10:30 10:30 WBC (3.8-10.6) k/uL RBC (3.80-5.40) m/uL Hgb (11.4-16.0) gm/dL Hct (34.0-46.0) % MCV (80.0-100.0) fL MCH (25.0-35.0) pg MCHC (31.0-37.0) g/dL RDW (11.5-15.5) % Plt Count (150-450) k/uL MPV Neutrophils % % Lymphocytes % % Monocytes % % Eosinophils % % Basophils % % Neutrophils # (1.3-7.7) k/uL Lymphocytes # (1.0-4.8) k/uL Monocytes # (0-1.0) k/uL Eosinophils # (0-0.7) k/uL Basophils # (0-0.2) k/uL PT (9.0-12.0) sec INR (<1.2) APTT (22.0-30.0) sec D-Dimer (<0.60) mg/L FEU Sodium (137-145) mmol/L Potassium (3.5-5.1) mmol/L Chloride (98-107) mmol/L Carbon Dioxide (22-30) mmol/L Anion Gap mmol/L BUN (7-17) mg/dL Creatinine (0.52-1.04) mg/dL Est GFR (CKD-EPI)AfAm (>60 ml/min/1.73 sqM) Est GFR (CKD-EPI)NonAf (>60 ml/min/1.73 sqM) Glucose (74-99) mg/dL Plasma Lactic Acid Philip 0.9 (0.7-2.0) mmol/L Calcium (8.4-10.2) mg/dL Total Bilirubin (0.2-1.3) mg/dL AST (14-36) U/L ALT (4-34) U/L Alkaline Phosphatase (38-126) U/L Troponin I 0.015 (0.000-0.034) ng/mL NT-Pro-B Natriuret Pep 161 pg/mL Total Protein (6.3-8.2) g/dL Albumin (3.5-5.0) g/dL - EKG Data -: EKG Interpreted by Me EKG shows normal: sinus rhythm Rate: normal EKG Comments: Ventricular rate 61 bpm, OH interval 192 ms, QRS duration 76 ms, QTC 432 ms, PRT axes 60/9/63. Sinus rhythm with premature atrial complexes, inferior infarct, age undetermined, abnormal ECG. - Radiology Data Radiology results: report reviewed, image reviewed CT angiography of the chest: Findings felt to reflect mild pulmonary embolism. Chest x-ray: Correlate for CHF otherwise consider diffuse pneumonia. Disposition Clinical Impression: Pulmonary embolism Disposition: ADMITTED IP TO THIS HOSP Condition: Stable Referrals: Chance Robertson MD [Primary Care Provider] - 1-2 days Time of Disposition: 12:40
[2021-01-20] MEDS ORDERED: NALOXONE 0.4 MG/ML 1 ML VIAL IV PRN (12:32)
[2021-01-20] MEDS ORDERED: SODIUM CHLORIDE 0.9% 1,000 ML IV SCH (12:45)
[2021-01-20] MEDS ORDERED: ENOXAPARIN 120 MG/0.8 ML SYRINGE SQ SCH (13:45)
--- NOTE | 2021-01-20 14:44 | P.HPIM ---
History of Present Illness H&P Date: 01/20/21 Chief Complaint: Shortness of breath History of presenting complaint: This is a pleasant 85-year-old patient follows with visiting physicians. Chronic stable medical conditions include hypothyroid, hypertension, hyperlipidemia, osteoarthritis. Does use a walker to baseline. Lives by herself. Patient noticed that she became short of breath yesterday. Slight cough. No fever no chills. Has had some edema also. Patient has good chronic urinary incontinence. Not very active. No chest pain. No fever no chills. Computed tomography scan in the ER suggestive of pulmonary embolism. Review of systems: GEN.: Tired EYES: None HEENT: None NECK: None RESPIRATORY: Short of breath CARDIOVASCULAR: None GASTROINTESTINAL: None GENITOURINARY: None MUSCULOSKELETAL: Joint pains LYMPHATICS: None HEMATOLOGICAL: None PSYCHIATRY: None NEUROLOGICAL: Uses a walker Past medical history to include: Hyperlipidemia, hypertension, myocardial infarction, hypothyroid, osteoarthri tis, urinary incontinence Social history: No history of smoking alcohol. Lives alone. Does use a walker. Family history: Reviewed, noncontributory to presentation Physical examination: VITAL SIGNS: 97.8, 59, 22, 142/71, 90% room air GENERAL: BMI 43.9, laying in bed, slightly tired. EYES: Pupils equal. Conjunctiva normal. HEENT: External appearance of nose and ears normal, oral cavity grossly normal. NECK: JVD not raised; masses not palpable. HEART: First and second heart sounds are normal; some edema. LUNGS: Respiratory rate increased; decreased breath sounds. ABDOMEN: Soft, nontender, liver spleen not palpable, no masses palpable. PSYCH: Alert and oriented x3; mood and affect normal MUSCULAR skeletal: Evidence of OA. NEUROLOGICAL: Cranial nerves grossly intact; no facial asymmetry, power and sensation grossly intact. LYMPHATICS: No lymph nodes palpable in the axilla and neck INVESTIGATIONS, reviewed in the clinical context: EKG tracing personally reviewed by me-normal sinus rhythm Chest x-ray film personally reviewed by me-infiltrate/pulmonary edema, cardiomegaly WBC 6.3 hemoglobin 15.2 platelets 119 d-dimer 1.86 potassium 4.3 BUN 31 at 0.83 ProBNP 161 Troponin I is 0.015 Assessment and plan: -Possible pneumonia. Suspect gram-negative organism. IV ceftriaxone 1 g every 12. Procalcitonin -Acute pulmonary embolism Started xarelto 50 mg every 12 -Morbid obesity BMI 43.9 Weight loss measures -Chronic gait dysfunction Uses a walker to baseline -Hyperlipidemia Pravastatin 80 mg daily at bedtime -Chronic insomnia, from multiple problems Melatonin 3 mg daily at bedtime -Hypothyroid Synthroid 125 g daily -Essential hypertension Coreg 6.25 mg twice a day -Primary osteoarthritis multiple joints bilateral Use pain medications as needed IV ceftriaxone 1 g every 12. 2-D echocardiogram. Xarelto 50 mg every 12. CARLOS ALBERTO stockings. Care was discussed with the patient. Questions answered. Given the complexity and severity of patient's condition expect the patient to be in the hospital at least for 2 overnights Past Medical History Past Medical History: Hyperlipidemia, Hypertension, Myocardial Infarction ([place]), Thyroid Disorder Additional Past Medical History / Comment(s): frequent uti Last Myocardial Infarction Date:: 1984 History of Any Multi-Drug Resistant Organisms: None Reported Past Surgical History: Appendectomy, Cholecystectomy, Joint Replacement, Tonsillectomy Additional Past Surgical History / Comment(s): RT TOTAL KNEE ARTHROPLASTY Past Anesthesia/Blood Transfusion Reactions: No Reported Reaction Past Psychological History: No Psychological Hx Reported Smoking Status: Never smoker Past Alcohol Use History: None Reported Past Drug Use History: None Reported - Past Family History family Additional Family Medical History / Comment(s): no hx of significant stroke Medications and Allergies Home Medications Medication Instructions Recorded Confirmed Type Albuterol Sulfate [Albuterol 1 puff INHALATION Q4-6H PRN 30 11/05/19 01/20/21 Rx Sulfate Hfa] Days #1 inhaler Acetaminophen Tab [Tylenol] 1,000 mg PO Q4H PRN 10/05/20 01/20/21 History Carvedilol [Coreg] 6.25 mg PO BID@0500,189910/05/20 01/20/21 History Furosemide [Lasix] 20 mg PO DAILY@0500 10/05/20 01/20/21 History Melatonin 3 mg PO HS@189910/05/20 01/20/21 History Pravastatin Sodium 80 mg PO HS@189910/05/20 01/20/21 History Spironolactone [Aldactone] 25 mg PO BID@0500,1900 10/05/20 01/20/21 History Furosemide [Lasix] 40 mg PO DAILY@0500 01/20/21 01/20/21 History Levothyroxine Sodium [Synthroid] 125 mcg PO DAILY@0500 01/20/21 01/20/21 History Allergies Allergy/AdvReac Type Severity Reaction Status Date / Time Sulfa (Sulfonamide Allergy Rash/Hives Verified 01/20/21 11:02 Antibiotics) Physical Exam Vitals: Vital Signs Temp Pulse Resp BP Pulse Ox 01/20/21 13:41 71 18 105/83 97 01/20/21 11:30 58 L 24 122/74 98 01/20/21 10:07 97.8 F 59 L 22 142/71 90 L Intake and Output 01/19/21 01/20/21 01/20/21 22:59 06:59 14:59 Other: Weight 108.862 kg Results CBC & Chem 7: 01/20/21 10:30 01/20/21 10:30 Labs: Abnormal Lab Results - Last 24 Hours (Table) 01/20/21 01/20/21 01/20/21 Range/Units 10:30 10:30 10:30 Hct 47.2 H (34.0-46.0) % Plt Count 119 L (150-450) k/uL D-Dimer 1.86 H (<0.60) mg/L FEU Carbon Dioxide 31 H (22-30) mmol/L BUN 31 H (7-17) mg/dL Glucose 103 H (74-99) mg/dL AST 49 H (14-36) U/L Alkaline Phosphatase 135 H (38-126) U/L
[2021-01-20] MEDS: PRAVASTATIN SODIUM 80 MG TAB PO SCH (19:27)
[2021-01-20] MEDS: MELATONIN 3 MG TABLET PO SCH (19:27)
[2021-01-20] MEDS: carvediloL 6.25 MG TAB PO SCH (19:27)
[2021-01-20] MEDS: SPIRONOLACTONE 25 MG TAB PO SCH (19:27)
[2021-01-20] MEDS ORDERED: IPRATROPIUM-ALBUTEROL 3 ML NEB INHALATION PRN (20:00)
[2021-01-20] MEDS: RIVAROXABAN 15 MG TAB PO SCH (21:40)
[2021-01-21] MEDS: IPRATROPIUM-ALBUTEROL 3 ML NEB INHALATION SCH ×5 (00:01→21:03)
[2021-01-21] MEDS: SPIRONOLACTONE 25 MG TAB PO SCH ×2 (04:02→17:58)
[2021-01-21] MEDS: LEVOTHYROXINE 125 MCG TAB PO SCH (04:02)
[2021-01-21] MEDS: carvediloL 6.25 MG TAB PO SCH ×2 (04:02→17:58)
[2021-01-21] MEDS ORDERED: IPRATROPIUM-ALBUTEROL 3 ML NEB INHALATION PRN (04:12)
[2021-01-21] MEDS ORDERED: FUROSEMIDE 40 MG TAB PO SCH (05:00)
[2021-01-21] MEDS ORDERED: FUROSEMIDE 20 MG TAB PO SCH (05:00)
[2021-01-21] MEDS: RIVAROXABAN 15 MG TAB PO SCH ×2 (07:26→17:58)
--- NOTE | 2021-01-21 08:33 | XR ---
EXAMINATION TYPE: XR chest 1V DATE OF EXAM: 01/21/2021 COMPARISON: 01/20/2021 HISTORY: Cough TECHNIQUE: Single frontal view of the chest is obtained. FINDINGS: There is bilateral lower lobe infiltrate and small effusion. Coarsened interstitium with n o pneumothorax. Heart size stable. IMPRESSION: Bilateral infiltrate and pleural effusion stable.
--- NOTE | 2021-01-21 09:01 | ECHOF ---
Referral Reason:pulmonary embolism MEASUREMENTS -------- HEIGHT: 157.5 cm WEIGHT: 108.9 kg BP: 122/74 RVIDd: 3.9 cm (< 3.3) IVSd: 1.5 cm (0.6 - 1.1) LVIDd: 4.8 cm (3.9 - 5.3) LVPWd: 1.3 cm (0.6 - 1.1) IVSs: 2.2 cm LVIDs: 2.3 cm LVPWs: 2.0 cm LA Diam: 4.3 cm (2.7 - 3.8) Ao Diam: 3.6 cm (2.0 - 3.7) AV Cusp: 1.9 cm (1.5 - 2.6) MV E Salvatore: 1.07 m/s MV DecT: 371 ms MV A Salvatore: 1.55 m/s MV E/A Ratio: 0.69 AV maxP.84 mmHg AV meanP.97 mmHg FINDINGS -------- Sinus rhythm. This was a technically difficult study with suboptimal views. The left ventricular size is normal. There is moderate concentric left ventricular hypertrophy. O verall left ventricular systolic function is normal with, an EF between 65 - 70 %. The right ventricle is moderately enlarged. The left atrium is mildly dilated. The right atrium is normal in size. 5 ml of Lumason was utilized for enhancement of images. Interatrial and interventricular septum intact. There is mild aortic valve sclerosis. The mitral valve leaflets are mildly thickened. Mild mitral annular calcification present. The tricuspid valve was not well visualized. Unable to estimate RVSP due to inadequate TR jet spect ral doppler profile. Trace/mild (physiologic) pulmonic regurgitation. The aortic root size is normal. IVC Not well visulized. There is no pericardial effusion. CONCLUSIONS -------- 1. The left ventricular size is normal. 2. There is moderate concentric left ventricular hypertrophy. 3. Overall left ventricular systolic function is normal with, an EF between 65 - 70 %. 4. The right ventricle is moderately enlarged. 5. The left atrium is mildly dilated. 6. 5 ml of Lumason was utilized for enhancement of images. 7. There is mild aortic valve sclerosis. 8. The mitral valve leaflets are mildly thickened. 9. Mild mitral annular calcification present. 10. Unable to estimate RVSP due to inadequate TR jet spectral doppler profile. 11. Trace/mild (physiologic) pulmonic regurgitation. 12. There is no pericardial effusion. [employer]: Fabienne Steven RDCS
[2021-01-21 11:20] LABS: ABG Base Excess 13.7 mmol/L; ABG HCO3 39 mmol/L (21-25); ABG Oxygen Saturation 89.7 % (94-97); ABG PCO2 66 mmHg (35-45); ABG PH 7.38 (7.35-7.45); ABG TCO2 41 mmol/L (19-24); Allen Test Performed? Yes
--- NOTE | 2021-01-21 11:20 | US ---
EXAMINATION TYPE: US venous doppler duplex LE DATE OF EXAM: 01/21/2021 11:03 AM COMPARISON: US 2019 CLINICAL HISTORY: ??PE. Exam done portable. SIDE PERFORMED: Bilateral TECHNIQUE: The lower extremity deep venous system is examined utilizing real time linear array sonog freddie with graded compression, doppler sonography and color-flow sonography. VESSELS IMAGED: Common Femoral Vein Deep Femoral Vein Greater Saphenous Vein * Femoral Vein Popliteal Vein Small Saphenous Vein * Proximal Calf Veins (* superficial vessels) Difficult and limited study due to morbidly obese patient and edema Exam started at prox femoral vein due to limitations listed above Right Leg: Visualized portions appear negative for DVT Left Leg: Visualized portions appear negative for DVT IMPRESSION: 1. Limited exam as discussed above. As visualized there is no diagnostic evidence of DVT. Portions of the deep venous system could not be assessed as discussed above.
[2021-01-21 11:25] LABS: ABG PO2 55 mmHg (83-108)
[2021-01-21] MEDS: FUROSEMIDE 10 MG/ML 4 ML VIAL IV SCH ×2 (11:54→22:54)
[2021-01-21] MEDS: methylPREDNISolone SOD SUCCI 125 MG/2 ML VIAL IV SCH ×2 (11:55→17:58)
--- NOTE | 2021-01-21 12:32 | P.CNPUL ---
History of Present Illness Consult date: 01/21/21 Reason for consult: dyspnea History of present illness: 85-year-old morbidly obese female patient who was sent yesterday because of increased shortness of breath. I saw her in consultation today. The patient was somewhat lethargic and sleepy. Yet she was arousable. Immediately, blood gas was done that showed a pH of 7.38 with a pCO2 of 66 and pO2 of 5500/there was no signs of any CO2 narcosis. Nevertheless, on examination, she was quite bronchospastic and wheezy. The patient has already been worked up earlier. As part of her workup, she was found to have a d-dimer of 1.86 and her COVID-19 testing was negative. Pro-calcitonin level was at 0.14. The white cell count was at 6.3. Chest x-ray was reviewed. CAT scan of the chest was reviewed. Is a concern of for a questionable right upper lobe subsegmental secondary/tertiary branch pulmonary artery embolism. I so a filling defect in the left lower lobe pulmonary artery branch. The patient is currently on Xarelto. Doppler of the lower extremity was also ordered.. Meanwhile, the patient is also covered with antibiotics. The CAT scan of the chest showed some left lower lobe consolidation/atelectasis and the patient is currently on Rocephin. Hemodynamically stable. No other complaints otherwise for now. No nausea. No vomiting. No diarrhea. No abdominal pain. She is morbidly obese with a BMI of 43.9. Review of Systems Constitutional: Reports as per HPI, Reports fatigue, Reports weight gain Eyes: denies as per HPI, denies blurred vision, denies bulging eye, denies decreased vision, denies diplopia, denies discharge, denies dry eye, denies irritation, denies itching, denies pain, denies photophobia, denies loss of peripheral vision, denies loss of vision, denies tunnel vision/blind spots Ears: deny: decreased hearing, ear discharge, earache, tinnitus Ears, nose, mouth and throat: Reports as per HPI Breasts: absent: as per HPI, change in shape, gynecomastia, masses, nipple discharge, pain, skin changes, swelling Cardiovascular: Reports as per HPI, Reports decreased exercise tolerance, Reports dyspnea on exertion Respiratory: Reports cough, Reports dyspnea Gastrointestinal: Reports as per HPI Genitourinary: Reports as per HPI Menstruation: Reports as per HPI Musculoskeletal: Reports as per HPI Musculoskeletal: absent: ankle pain, ankle stiffness, ankle swelling Integumentary: Reports as per HPI Neurological: Reports as per HPI, Reports weakness Psychiatric: Reports as per HPI Endocrine: Reports as per HPI, Reports fatigue Hematologic/Lymphatic: Reports as per HPI Allergic/Immunologic: Reports as per HPI Past Medical History Past Medical History: Coronary Artery Disease (CAD), Hyperlipidemia, Hypertension, Myocardial Infarction ([place]), Thyroid Disorder Additional Past Medical History / Comment(s): frequent uti Last Myocardial Infarction Date:: 1984 History of Any Multi-Drug Resistant Organisms: None Reported Past Surgical History: Appendectomy, Cholecystectomy, Joint Replacement, Tonsillectomy Additional Past Surgical History / Comment(s): RT TOTAL KNEE ARTHROPLASTY Past Anesthesia/Blood Transfusion Reactions: No Reported Reaction Past Psychological History: No Psychological Hx Reported Smoking Status: Never smoker Past Alcohol Use History: None Reported Past Drug Use History: None Reported - Past Family History family Additional Family Medical History / Comment(s): no hx of significant stroke Medications and Allergies Home Medications Medication Instructions Recorded Confirmed Type Albuterol Sulfate [Albuterol 1 puff INHALATION Q4-6H PRN 30 11/05/19 01/20/21 Rx Sulfate Hfa] Days #1 inhaler Acetaminophen Tab [Tylenol] 1,000 mg PO Q4H PRN 10/05/20 01/20/21 History Carvedilol [Coreg] 6.25 mg PO BID@0500,189910/05/20 01/20/21 History Furosemide [Lasix] 20 mg PO DAILY@49910/05/20 01/20/21 History Melatonin 3 mg PO HS@189910/05/20 01/20/21 History Pravastatin Sodium 80 mg PO HS@189910/05/20 01/20/21 History Spironolactone [Aldactone] 25 mg PO BID@0500,189910/05/20 01/20/21 History Furosemide [Lasix] 40 mg PO DAILY@49901/20/21 01/20/21 History Levothyroxine Sodium [Synthroid] 125 mcg PO DAILY@0500 01/20/21 01/20/21 History Allergies Allergy/AdvReac Type Severity Reaction Status Date / Time Sulfa (Sulfonamide Allergy Rash/Hives Verified 01/20/21 11:02 Antibiotics) Physical Exam Vitals: Vital Signs Temp Pulse Pulse Pulse Resp BP BP 01/21/21 08:49 69 01/21/21 08:38 70 01/21/21 07:05 97.9 F 66 18 138/72 01/21/21 06:23 28 H 01/21/21 04:25 38 H 01/21/21 04:24 69 01/21/21 04:14 73 01/21/21 04:05 98.2 F 74 38 H 159/85 01/21/21 00:43 97.9 F 81 19 145/76 01/20/21 22:29 98.2 F 74 32 H 124/80 01/20/21 21:50 97.8 F 80 20 143/88 01/20/21 20:00 80 20 01/20/21 19:33 97.5 F L 82 30 H 197/87 01/20/21 19:30 80 25 H 169/81 01/20/21 15:19 01/20/21 13:41 71 18 105/83 Pulse Ox 01/21/21 08:49 01/21/21 08:38 01/21/21 07:05 95 01/21/21 06:23 92 L 01/21/21 04:25 01/21/21 04:24 01/21/21 04:14 01/21/21 04:05 93 L 01/21/21 00:43 94 L 01/20/21 22:29 96 01/20/21 21:50 93 L 01/20/21 20:00 01/20/21 19:33 92 L 01/20/21 19:30 92 L 01/20/21 15:19 100 01/20/21 13:41 97 Intake and Output 01/20/21 01/21/21 01/21/21 22:59 06:59 14:59 Other: # Voids 2 Weight 108.862 kg GENERAL: BMI 43.9, laying in bed, slightly tired. Lethargic and sleepy at arousable. Follows commands and answers questions appropriately. Head exam was generally normal. There was no scleral icterus or corneal arcus. Mucous membranes were moist. EYES: Pupils equal. Conjunctiva normal. HEENT: External appearance of nose and ears normal, oral cavity grossly normal. The patient is significant crowding of the posterior oropharynx with a Mallampati class IV NECK: JVD not raised; masses not palpable. HEART: First and second heart sounds are normal; some edema. LUNGS: Respiratory rate increased; decreased breath sounds. Scattered expiratory wheezes throughout the lung his bilaterally ABDOMEN: Soft, nontender, liver spleen not palpable, no masses palpable. PSYCH: Alert and oriented x3; mood and affect normal MUSCULAR skeletal: Evidence of OA. NEUROLOGICAL: Cranial nerves grossly intact; no facial asymmetry, power and sensation grossly intact. LYMPHATICS: No lymph nodes palpable in the axilla and neck, trace edema in lower extremities bilaterally Examination of the extremities revealed easily palpable radial, femoral and pedal pulses. There was no cyanosis, clubbing or trace edema in lower extremities bilaterally Results - Laboratory Findings CBC and BMP: 01/20/21 10:30 01/20/21 10:30 ABG ABG pH 7.38 (7.35-7.45) 01/21/21 11:15 ABG pCO2 66 mmHg (35-45) H 01/21/21 11:15 ABG pO2 55 mmHg (83-108) L* 01/21/21 11:15 ABG O2 Saturation 89.7 % (94-97) L 01/21/21 11:15 PT/INR, D-dimer PT 10.0 sec (9.0-12.0) 01/20/21 10:30 INR 0.9 (<1.2) 01/20/21 10:30 D-Dimer 1.86 mg/L FEU (<0.60) H 01/20/21 10:30 Abnormal lab findings: Abnormal Labs 01/20/21 01/20/21 01/20/21 10:30 10:30 10:30 Hct 47.2 H Plt Count 119 L D-Dimer 1.86 H ABG pCO2 ABG pO2 ABG HCO3 ABG Total CO2 ABG O2 Saturation Carbon Dioxide 31 H BUN 31 H Glucose 103 H AST 49 H Alkaline Phosphatase 135 H Procalcitonin 01/20/21 01/21/21 10:30 11:15 Hct Plt Count D-Dimer ABG pCO2 66 H ABG pO2 55 L* ABG HCO3 39 H ABG Total CO2 41 H ABG O2 Saturation 89.7 L Carbon Dioxide BUN Glucose AST Alkaline Phosphatase Procalcitonin 0.14 H - Diagnostic Findings Chest x-ray: image reviewed CT scan - chest: image reviewed Assessment and Plan Plan: 1 acute hypoxic respiratory failure/shortness of breath currently under investigation. Consider left lower lobe pneumonia as the patient has an area of consolidation/atelectasis in left lung base currently on IV Rocephin. Consider pulmonary embolism although this is quite not certain. The patient has some personal filling defects in the secondary branches to the right upper lobe pulmonary artery and there is not a filling defect and left lower lobe only artery branch. Currently on Xarelto. Further investigation with Dopplers of the lower extremities are pending. 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
[2021-01-21 13:31] LABS: Appearance,Urine Cloudy (Clear); Bacteria,Urine Rare /hpf; Bilirubin,Urine Negative (Negative); Blood,Urine Trace (Negative); Color,Urine Yellow; Glucose,Urine (UA) Negative (Negative); Hyaline Casts,Urine 4 /lpf (0-2); Ketones,Urine Negative (Negative); Leukocyte Esterase,Urine Large (Negative); Nitrite,Urine Negative (Negative); Protein,Urine Negative (Negative); RBC,Urine 24 /hpf (0-5); Specific Gravity,Urine 1.013 (1.001-1.035); Squamous Epithelial Cell,Urine 2 /hpf (0-4); Urobilinogen,Urine <2.0 mg/dL (<2.0); WBC,Urine >182 /hpf (0-5)
[2021-01-21] MEDS: AZITHROMYCIN 500 MG TAB PO SCH (14:21)
--- NOTE | 2021-01-21 16:12 | P.PN ---
Progress Note - Text Progress Note Date: 01/21/21 Chief Complaint: Shortness of breath History of presenting complaint: This is a pleasant 85-year-old patient follows with visiting physicians. Chronic stable medical conditions include hypothyroid, hypertension, hyperlipidemia, osteoarthritis. Does use a walker to baseline. Lives by herself. Patient noticed that she became short of breath yesterday. Slight cough. No fever no chills. Has had some edema also. Patient has good chronic urinary incontinence. Not very active. No chest pain. No fever no chills. Computed tomography scan in the ER suggestive of pulmonary embolism. Admitted with diagnosis of pneumonia, acute PE. Started on IV ceftriaxone, xar elto. January 21 Overnight patient became more short of breath. Some congestion. Pulmonary consulted this morning. Placed on BiPAP. Chest x-ray showing pneumonia. Congested cough. Clear phlegm. Lasix added by pulmonary Review of systems: Was done for constitutional, cardiovascular, GI, pulmonary. relevant finding as above Active Medications Acetaminophen (Acetaminophen Tab 500 Mg Tab) 1,000 mg PO Q6H PRN PRN Reason: Pain Albuterol/Ipratropium (Ipratropium-Albuterol 3 Ml Neb) 3 ml INHALATION RT-QID [facility] Last Admin: 01/21/21 11:40 Dose: Not Given Documented by: Albuterol/Ipratropium (Ipratropium-Albuterol 3 Ml Neb) 3 ml INHALATION RT-Q4H PRN PRN Reason: Shortness Of Breath Or Wheezing Last Admin: 01/21/21 04:15 Dose: 3 ml Documented by: Azithromycin (Azithromycin 500 Mg Tab) 500 mg PO DAILY [facility] Last Admin: 01/21/21 14:21 Dose: 500 mg Documented by: Carvedilol (Carvedilol 6.25 Mg Tab) 6.25 mg PO BID@0500,1900 [facility] Last Admin: 01/21/21 04:02 Dose: 6.25 mg Documented by: Furosemide (Furosemide 10 Mg/Ml 4 Ml Vial) 40 mg IV Q12HR [facility] Last Admin: 01/21/21 11:54 Dose: 40 mg Documented by: Ceftriaxone Sodium 1 gm/ (Sodium Chloride) 50 mls @ 100 mls/hr IVPB Q12HR [facility] Last Admin: 01/21/21 07:26 Dose: 100 mls/hr Documented by: Levothyroxine Sodium (Levothyroxine 125 Mcg Tab) 125 mcg PO DAILY@0500 [facility] Last Admin: 01/21/21 04:02 Dose: 125 mcg Documented by: Melatonin (Melatonin 3 Mg Tablet) 3 mg PO HS@1900 [facility] Last Admin: 01/20/21 19:27 Dose: 3 mg Documented by: Methylprednisolone Sodium Succinate (Methylprednisolone Sod Succi 125 Mg/2 Ml Vial) 60 mg IV Q6HR [facility] Last Admin: 01/21/21 11:55 Dose: 60 mg Documented by: Naloxone HCl (Naloxone 0.4 Mg/Ml 1 Ml Vial) 0.2 mg IV Q2M PRN PRN Reason: Opioid Reversal Pravastatin Sodium (Pravastatin Sodium 80 Mg Tab) 80 mg PO HS@1900 [facility] Last Admin: 01/20/21 19:27 Dose: 80 mg Documented by: Rivaroxaban (Rivaroxaban 15 Mg Tab) 15 mg PO BID-W/MEALS [facility]; Protocol Last Admin: 01/21/21 07:26 Dose: 15 mg Documented by: Spironolactone (Spironolactone 25 Mg Tab) 25 mg PO BID@0500,1900 [facility] Last Admin: 01/21/21 04:02 Dose: 25 mg Documented by: Past medical history to include: Hyperlipidemia, hypertension, myocardial infarction, hypothyroid, osteoarthritis, urinary incontinence Social history: No history of smoking alcohol. Lives alone. Does use a walker. Family history: Reviewed, noncontributory to presentation Physical examination: VITAL SIGNS: 97.9, 66, 26, 1:30/72, 95% on 3 L GENERAL: Reclining in bed, tired, short of breath, on BiPAP EYES: Pupils equal. Conjunctiva normal.. NECK: JVD not raised; masses not palpable. HEART: First and second heart sounds are normal; some edema. LUNGS: Respiratory rate increased; decreased breath sounds. Extra C muscles are working. Not able to speak in full sentences. ABDOMEN: Soft, nontender, liver spleen not palpable, no masses palpable. PSYCH: Alert and oriented x3; mood and affect anxious MUSCULAR skeletal: Evidence of OA. INVESTIGATIONS, reviewed in the clinical context: January 21: ABG [pH 7.38, pCO2 66, pO2 55. Chest x-ray film personally reviewed by me: Infiltrate Pro-calcitonin 0.14 2-D echocardiogram: Moderate concentric LVH. EF 65-70% EKG tracing personally reviewed by me-normal sinus rhythm Chest x-ray film personally reviewed by me-infiltrate/pulmonary edema, car diomegaly WBC 6.3 hemoglobin 15.2 platelets 119 d-dimer 1.86 potassium 4.3 BUN 31 at 0.83 ProBNP 161 Troponin I is 0.015 Assessment and plan: -Possible pneumonia. Suspect gram-negative organism.: Worsening IV ceftriaxone 1 g every 12. -Acute hypoxic and hypercapnic respiratory failure, multifactorial Placed on BiPAP today. -Acute pulmonary embolism xarelto 15 mg every 12 -Morbid obesity BMI 43.9 Weight loss measures -Chronic gait dysfunction Uses a walker to baseline -Hyperlipidemia Pravastatin 80 mg daily at bedtime -Chronic insomnia, from multiple problems Melatonin 3 mg daily at bedtime -Hypothyroid Synthroid 125 g daily -Essential hypertension Coreg 6.25 mg twice a day -Primary osteoarthritis multiple joints bilateral Use pain medications as needed IV ceftriaxone 1 g every 12. Pulmonary consulted. BiPAP per pulmonary. Other medications to continue. Doubt pulmonary edema. Repeat labs in the morning including BNP.
[2021-01-21] MEDS: MELATONIN 3 MG TABLET PO SCH (17:58)
[2021-01-21] MEDS: PRAVASTATIN SODIUM 80 MG TAB PO SCH (17:58)
[2021-01-21] MEDS ORDERED: ALBUTEROL HFA INHALER INHALATION PRN (21:42)
[2021-01-22] MEDS: methylPREDNISolone SOD SUCCI 125 MG/2 ML VIAL IV SCH ×5 (01:17→20:27)
[2021-01-22] MEDS: LEVOTHYROXINE 125 MCG TAB PO SCH (05:09)
[2021-01-22] MEDS: SPIRONOLACTONE 25 MG TAB PO SCH ×2 (05:09→17:14)
[2021-01-22] MEDS: carvediloL 6.25 MG TAB PO SCH ×2 (05:09→17:14)
[2021-01-22] MEDS: RIVAROXABAN 15 MG TAB PO SCH ×2 (07:31→17:14)
[2021-01-22] MEDS: AZITHROMYCIN 500 MG TAB PO SCH (07:32)
[2021-01-22] MEDS: FUROSEMIDE 10 MG/ML 4 ML VIAL IV SCH (07:33)
[2021-01-22 08:24] LABS: Basophils % (A) 1 %; Eosinophils % (A) 0 %; HCT 45.5 % (34.0-46.0); HGB 14.5 gm/dL (11.4-16.0); Hypochromasia Slight; Lymphocytes # (A) 0.7 k/uL (1.0-4.8); Lymphocytes % (A) 13 %; MCH 31.9 pg (25.0-35.0); MCV 99.8 fL (80.0-100.0); Mean Platelet Volume 9.9; Monocytes # (A) 0.2 k/uL (0-1.0); Monocytes % (A) 4 %; Neutrophils # (A) 4.4 k/uL (1.3-7.7); Neutrophils % (A) 82 %; Platelet Count 123 k/uL (150-450); RBC 4.56 m/uL (3.80-5.40); RDW 13.7 % (11.5-15.5); WBC 5.3 k/uL (3.8-10.6)
[2021-01-22] MEDS: ALBUTEROL HFA INHALER INHALATION SCH ×4 (08:34→20:39)
[2021-01-22] MEDS: TIOTROPIUM 2.5 MCG INHALER INHALATION SCH (08:35)
[2021-01-22 08:45] LABS: African American GFR (CKD) 82 (>60 ml/min/1.73 sqM); Anion Gap 7 mmol/L; Blood Urea Nitrogen 28 mg/dL (7-17); Calcium 10.2 mg/dL (8.4-10.2); Carbon Dioxide 34 mmol/L (22-30); Chloride 96 mmol/L (98-107); Glucose 144 mg/dL (74-99); Non-African American GFR(CKD) 71 (>60 ml/min/1.73 sqM); Potassium 4.5 mmol/L (3.5-5.1); Sodium 137 mmol/L (137-145)
--- NOTE | 2021-01-22 12:10 | P.PN ---
Subjective Progress Note Date: 01/22/21 85-year-old morbidly obese female patient who was sent yesterday because of increased shortness of breath. I saw her in consultation today. The patient was somewhat lethargic and sleepy. Yet she was arousable. Immediately, blood gas was done that showed a pH of 7.38 with a pCO2 of 66 and pO2 of 5500/there was no signs of any CO2 narcosis. Nevertheless, on examination, she was quite bronchospastic and wheezy. The patient has already been worked up earlier. As part of her workup, she was found to have a d-dimer of 1.86 and her COVID-19 testing was negative. Pro-calcitonin level was at 0.14. The white cell count was at 6.3. Chest x-ray was reviewed. CAT scan of the chest was reviewed. Is a concern of for a questionable right upper lobe subsegmental secondary/tertiary branch pulmonary artery embolism. I so a filling defect in the left lower lobe pulmonary artery branch. The patient is currently on Xarelto. Doppler of the lower extremity was also ordered.. Meanwhile, the patient is also covered with antibiotics. The CAT scan of the chest showed some left lower lobe consolidati on/atelectasis and the patient is currently on Rocephin. Hemodynamically stable. No other complaints otherwise for now. No nausea. No vomiting. No diarrhea. No abdominal pain. She is morbidly obese with a BMI of 43.9. 01/22/2021, clinically the patient is clinically improved compared to yesterday. She is more awake. Less short of breath. Less bronchospastic and wheezy. She is the BiPAP overnight. She is being diuresed with Lasix 40 mg every 12 hours. Fluid balance is negative and order of 800 mL. She is also on IV Solu-Medrol. She is on bronchodilators patient is on Xarelto. No other new complaints. Pro- calcitonin level was at 0.114 and the proBNP level was at 478. Objective - Vital Signs Vital signs: Vital Signs Temp 97.6 F 01/22/21 07:25 Pulse 64 01/22/21 07:25 Resp 18 01/22/21 07:25 BP 163/68 01/22/21 07:25 Pulse Ox 93 L 01/22/21 08:33 Intake & Output 01/21/21 01/22/21 01/22/21 18:59 06:59 18:59 Output Total 700 100 Balance -700 -100 Output: Urine 700 100 Other: Voiding Method External Catheter External Catheter - Exam GENERAL: BMI 43.9, laying in bed, slightly tired. Lethargic and sleepy at arousable. Follows commands and answers questions appropriately. Head exam was generally normal. There was no scleral icterus or corneal arcus. Mucous membranes were moist. EYES: Pupils equal. Conjunctiva normal. HEENT: External appearance of nose and ears normal, oral cavity grossly normal. The patient is significant crowding of the posterior oropharynx with a Mallampati class IV NECK: JVD not raised; masses not palpable. HEART: First and second heart sounds are normal; some edema. LUNGS: Respiratory rate increased; decreased breath sounds. Scattered expiratory wheezes throughout the lung his bilaterally ABDOMEN: Soft, nontender, liver spleen not palpable, no masses palpable. PSYCH: Alert and oriented x3; mood and affect normal MUSCULAR skeletal: Evidence of OA. NEUROLOGICAL: Cranial nerves grossly intact; no facial asymmetry, power and sensation grossly intact. LYMPHATICS: No lymph nodes palpable in the axilla and neck, trace edema in lower extremities bilaterally Examination of the extremities revealed easily palpable radial, femoral and pedal pulses. There was no cyanosis, clubbing or trace edema in lower extremities bilaterally - Labs CBC & Chem 7: 01/22/21 07:14 01/22/21 07:14 Labs: Abnormal Lab Results - Last 24 Hours (Table) 01/21/21 01/22/21 01/22/21 Range/Units 13:15 07:14 07:14 Plt Count 123 L (150-450) k/uL Lymphocytes # 0.7 L (1.0-4.8) k/uL Chloride 96 L (98-107) mmol/L Carbon Dioxide 34 H (22-30) mmol/L BUN 28 H (7-17) mg/dL Glucose 144 H (74-99) mg/dL Urine Appearance Cloudy H (Clear) Urine Blood Trace H (Negative) Ur Leukocyte Esterase Large H (Negative) Urine RBC 24 H (0-5) /hpf Urine WBC >182 H (0-5) /hpf Urine WBC Clumps Few H (None) /hpf Urine Bacteria Rare H (None) /hpf Hyaline Casts 4 H (0-2) /lpf Assessment and Plan Plan: 1 acute hypoxic respiratory failure/shortness of breath currently under investigation. Consider left lower lobe pneumonia as the patient has an area of consolidation/atelectasis in left lung base currently on IV Rocephin. Consider pulmonary embolism although this is quite not certain. The patient has some personal filling defects in the secondary branches to the right upper lobe pulmonary artery and there is not a filling defect and left lower lobe only artery branch. Currently on Xarelto. Doppler of the lower extremities have been negative. 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 ProBNP level is not elevated. Continue IV Solu-Medrol Continue bronchodilators continue the Rocephin and keep the patient on a course of Zithromax for the next 5 days Doppler of the lower extremity has been negative We'll continue to follow
[2021-01-22 12:40] LABS: Creatine Kinase MB 4.7 ng/mL (0.0-2.4); Troponin I 0.019 ng/mL (0.000-0.034)
[2021-01-22] MEDS: MELATONIN 3 MG TABLET PO SCH (17:13)
[2021-01-22] MEDS: PRAVASTATIN SODIUM 80 MG TAB PO SCH (17:14)
--- NOTE | 2021-01-22 19:26 | P.PN ---
Progress Note - Text Progress Note Date: 01/22/21 Chief Complaint: Shortness of breath History of presenting complaint: This is a pleasant 85-year-old patient follows with visiting physicians. Chronic stable medical conditions include hypothyroid, hypertension, hyperlipidemia, osteoarthritis. Does use a walker to baseline. Lives by herself. Patient noticed that she became short of breath yesterday. Slight cough. No fever no chills. Has had some edema also. Patient has good chronic urinary incontinence. Not very active. No chest pain. No fever no chills. Computed tomography scan in the ER suggestive of pulmonary embolism. Admitted with diagnosis of pneumonia, acute PE. Started on IV ceftriaxone, xar elto. January 21 Overnight patient became more short of breath. Some congestion. Pulmonary consulted this morning. Placed on BiPAP. Chest x-ray showing pneumonia. Congested cough. Clear phlegm. Lasix added by pulmonary January 22: Short of breath. On nasal cannula. Congested chest. Tired Review of systems: Was done for constitutional, cardiovascular, GI, pulmonary. relevant finding as above Active Medications Acetaminophen (Acetaminophen Tab 500 Mg Tab) 1,000 mg PO Q6H PRN PRN Reason: Pain Albuterol Sulfate (Albuterol Hfa Inhaler) 2 puff INHALATION RT-QID [facility] Last Admin: 01/22/21 16:44 Dose: 2 puff Documented by: Albuterol Sulfate (Albuterol Hfa Inhaler) 2 puff INHALATION RT-Q4H PRN PRN Reason: Shortness Of Breath Or Wheezing Azithromycin (Azithromycin 500 Mg Tab) 500 mg PO DAILY [facility] Last Admin: 01/22/21 07:32 Dose: 500 mg Documented by: Carvedilol (Carvedilol 6.25 Mg Tab) 6.25 mg PO BID@0500,1900 [facility] Last Admin: 01/22/21 17:14 Dose: 6.25 mg Documented by: Furosemide (Furosemide 10 Mg/Ml 4 Ml Vial) 40 mg IV DAILY [facility] Ceftriaxone Sodium 1 gm/ (Sodium Chloride) 50 mls @ 100 mls/hr IVPB Q24HR [facility] Levothyroxine Sodium (Levothyroxine 125 Mcg Tab) 125 mcg PO DAILY@0500 [facility] Last Admin: 01/22/21 05:09 Dose: 125 mcg Documented by: Melatonin (Melatonin 3 Mg Tablet) 3 mg PO HS@1900 [facility] Last Admin: 01/22/21 17:13 Dose: 3 mg Documented by: Methylprednisolone Sodium Succinate (Methylprednisolone Sod Succi 125 Mg/2 Ml Vial) 60 mg IV Q6HR [facility] Last Admin: 01/22/21 17:14 Dose: 60 mg Documented by: Naloxone HCl (Naloxone 0.4 Mg/Ml 1 Ml Vial) 0.2 mg IV Q2M PRN PRN Reason: Opioid Reversal Pravastatin Sodium (Pravastatin Sodium 80 Mg Tab) 80 mg PO HS@1900 [facility] Last Admin: 01/22/21 17:14 Dose: 80 mg Documented by: Rivaroxaban (Rivaroxaban 15 Mg Tab) 15 mg PO BID-W/MEALS [facility]; Protocol Last Admin: 01/22/21 17:14 Dose: 15 mg Documented by: Spironolactone (Spironolactone 25 Mg Tab) 25 mg PO BID@0500,1900 [facility] Last Admin: 01/22/21 17:14 Dose: 25 mg Documented by: Tiotropium [place] (Tiotropium 2.5 Mcg Inhaler) 1 puff INHALATION RT-DAILY [facility] Last Admin: 01/22/21 08:35 Dose: 1 puff Documented by: Past medical history to include: Hyperlipidemia, hypertension, myocardial infarction, hypothyroid, osteoarthritis, urinary incontinence Social history: No history of smoking alcohol. Lives alone. Does use a walker. Family history: Reviewed, noncontributory to presentation Physical examination: VITAL SIGNS: 97.6, 68, 18, 154-73, 95% on 5 L GENERAL: Reclining in bed, tired, short of breath, EYES: Pupils equal. Conjunctiva normal.. NECK: JVD not raised; masses not palpable. HEART: First and second heart sounds are normal; some edema. LUNGS: Respiratory rate increased; decreased breath sounds. Anterior expiratory crackles ABDOMEN: Soft, nontender, liver spleen not palpable, no masses palpable. PSYCH: Alert and oriented x3; mood and affect anxious MUSCULAR skeletal: Evidence of OA. INVESTIGATIONS, reviewed in the clinical context: January 22: WBC 5.3 hemoglobin 14.5 potassium 4.5 BUN 28 creatinine 0.76 proBNP 478 Influenza type A diabetes both not detected. Coronavirus [PCR]: Not detected January 21: ABG [pH 7.38, pCO2 66, pO2 55. Chest x-ray film personally reviewed by me: Infiltrate Pro-calcitonin 0.14 2-D echocardiogram: Moderate concentric LVH. EF 65-70% EKG tracing personally reviewed by me-normal sinus rhythm Chest x-ray film personally reviewed by me-infiltrate/pulmonary edema, cardiomegaly WBC 6.3 hemoglobin 15.2 platelets 119 d-dimer 1.86 potassium 4.3 BUN 31 at 0.83 ProBNP 161 Troponin I is 0.015 Assessment and plan: - pneumonia. Suspect gram-negative organism.: Slow to respond IV ceftriaxone 1 g every 12. Steroids added -Obesity hypoventilation syndrome element -Acute hypoxic and hypercapnic respiratory failure, multifactorial BiPAP. Currently on 5 L nasal cannula. -Acute pulmonary embolism xarelto 15 mg every 12 -Morbid obesity BMI 43.9 Weight loss measures -Chronic gait dysfunction Uses a walker to baseline -Hyperlipidemia Pravastatin 80 mg daily at bedtime -Chronic insomnia, from multiple problems Melatonin 3 mg daily at bedtime -Hypothyroid Synthroid 125 g daily -Essential hypertension Coreg 6.25 mg twice a day -Primary osteoarthritis multiple joints bilateral Use pain medications as needed -Doubt CHF Continue IV ceftriaxone 1 g every 12. Continue other medications. Oxygen support. Xarelto.
[2021-01-22 21:43] LABS: Hemoglobin A1C 5.8 % (4.0-6.0)
[2021-01-23] MEDS: ACETAMINOPHEN TAB 500 MG TAB PO PRN (01:07)
[2021-01-23] MEDS: methylPREDNISolone SOD SUCCI 125 MG/2 ML VIAL IV SCH ×3 (05:37→16:58)
[2021-01-23] MEDS: SPIRONOLACTONE 25 MG TAB PO SCH ×2 (05:59→16:58)
[2021-01-23] MEDS: LEVOTHYROXINE 125 MCG TAB PO SCH (05:59)
[2021-01-23] MEDS: carvediloL 6.25 MG TAB PO SCH ×2 (05:59→16:58)
[2021-01-23 08:22] LABS: African American GFR (CKD) 85 (>60 ml/min/1.73 sqM); Anion Gap 7 mmol/L; Blood Urea Nitrogen 39 mg/dL (7-17); Calcium 9.9 mg/dL (8.4-10.2); Carbon Dioxide 37 mmol/L (22-30); Chloride 96 mmol/L (98-107); Glucose 128 mg/dL (74-99); Non-African American GFR(CKD) 74 (>60 ml/min/1.73 sqM); Potassium 4.5 mmol/L (3.5-5.1); Sodium 140 mmol/L (137-145)
[2021-01-23] MEDS: RIVAROXABAN 15 MG TAB PO SCH ×2 (08:33→16:58)
[2021-01-23] MEDS: FUROSEMIDE 10 MG/ML 4 ML VIAL IV SCH (08:33)
[2021-01-23] MEDS: AZITHROMYCIN 500 MG TAB PO SCH (08:33)
[2021-01-23] MEDS: ALBUTEROL HFA INHALER INHALATION SCH ×5 (08:45→21:45)
[2021-01-23] MEDS: TIOTROPIUM 2.5 MCG INHALER INHALATION SCH (08:45)
--- NOTE | 2021-01-23 15:30 | P.PN ---
Subjective Progress Note Date: 01/23/21 Principal diagnosis: Acute hypoxic respiratory failure 85-year-old morbidly obese female patient who was sent yesterday because of increased shortness of breath. I saw her in consultation today. The patient was somewhat lethargic and sleepy. Yet she was arousable. Immediately, blood gas was done that showed a pH of 7.38 with a pCO2 of 66 and pO2 of 5500/there was no signs of any CO2 narcosis. Nevertheless, on examination, she was quite bronchospastic and wheezy. The patient has already been worked up earlier. As part of her workup, she was found to have a d-dimer of 1.86 and her COVID-19 testing was negative. Pro-calcitonin level was at 0.14. The white cell count was at 6.3. Chest x-ray was reviewed. CAT scan of the chest was reviewed. Is a concern of for a questionable right upper lobe subsegmental secondary/tertiary branch pulmonary artery embolism. I so a filling defect in the left lower lobe pulmonary artery branch. The patient is currently on Xarelto. Doppler of the lower extremity was also ordered.. Meanwhile, the patient is also covered with antibiotics. The CAT scan of the chest showed some left lower lobe consolidation/atelectasis and the patient is currently on Rocephin. Hemodynamically stable. No other complaints otherwise for now. No nausea. No vomiting. No diarrhea. No abdominal pain. She is morbidly obese with a BMI of 43.9. 01/22/2021, clinically the patient is clinically improved compared to yesterday. She is more awake. Less short of breath. Less bronchospastic and wheezy. She is the BiPAP overnight. She is being diuresed with Lasix 40 mg every 12 hours. Fluid balance is negative and order of 800 mL. She is also on IV Solu-Medrol. She is on bronchodilators patient is on Xarelto. No other new complaints. Pro- calcitonin level was at 0.114 and the proBNP level was at 478. On 01/23/2021 patient seen in follow-up on medical surgical floor, she is resting comfortably in bed, appears to be in no acute distress, she is currently 4 L of oxygen pulse ox is 93%, she did wear BiPAP part of the night, tolerated it fairly well, she is mildly wheezy on today's evaluation, overall improved. Patient remains on IV Lasix 40 mg daily, she remains on azithromycin and Rocephin. She is in negative fluid balance. Slightly bronchospastic, she remains on IV steroids at 60 mg every 6 hours. A lateral lower extremity Dopplers were negative for DVT. Objective - Vital Signs Vital signs: Vital Signs Temp 97.6 F 01/23/21 14:00 Pulse 70 01/23/21 14:00 Resp 18 01/23/21 14:00 BP 144/49 01/23/21 14:00 Pulse Ox 93 L 01/23/21 14:00 Intake & Output 01/22/21 01/23/21 01/23/21 18:59 06:59 18:59 Intake Total 50 600 50 Output Total 575 750 Balance 50 25 -700 Intake: Intake, IV Titration 50 50 Amount cefTRIAXone 1 gm In 50 50 Sodium Chloride 0.9% 50 ml @ 100 mls/hr IVPB Q24HR [facility] Rx#:[id number] Oral 600 Output: Urine 575 750 Other: Voiding Method External Catheter External Catheter External Catheter # Voids 1 # Bowel Movements 1 - Exam GENERAL EXAM: Alert, very pleasant, 85-year-old white female, resting comfortably in bed, on 4 L of oxygen pulse ox is 93%, comfortable in no apparent distress. HEAD: Normocephalic/atraumatic. Face is mariah, which is apparently chronic for the patient EYES: Normal reaction of pupils, equal size. Conjunctiva pink, sclera white. NOSE: Clear with pink turbinates. THROAT: No erythema or exudates. NECK: No masses, no JVD, no thyroid enlargement, no adenopathy. CHEST: No chest wall deformity. Symmetrical expansion. LUNGS: Equal air entry with minimal wheezing CVS: Regular rate and rhythm, normal S1 and S2, no gallops, no murmurs, no rubs ABDOMEN: Soft, nontender. No hepatosplenomegaly, normal bowel sounds, no guarding or rigidity. EXTREMITIES: No clubbing, mild lower extremity edema, no cyanosis, 2+ pulses and upper and lower extremities. MUSCULOSKELETAL: Muscle strength and tone normal. SPINE: No scoliosis or deformity SKIN: No rashes CENTRAL NERVOUS SYSTEM: Alert and oriented -3. No focal deficits, tone is normal in all 4 extremities. PSYCHIATRIC: Alert and oriented -3. Appropriate affect. Intact judgment and insight. - Labs CBC & Chem 7: 01/22/21 07:14 01/23/21 07:30 Labs: Abnormal Lab Results - Last 24 Hours (Table) 01/23/21 Range/Units 07:30 Chloride 96 L (98-107) mmol/L Carbon Dioxide 37 H (22-30) mmol/L BUN 39 H (7-17) mg/dL Glucose 128 H (74-99) mg/dL Assessment and Plan Plan: 1 acute hypoxic respiratory failure/shortness of breath currently under investigation. Consider left lower lobe pneumonia as the patient has an area of consolidation/atelectasis in left lung base currently on IV Rocephin. Consider pulmonary embolism although this is quite not certain. The patient has some personal filling defects in the secondary branches to the right upper lobe pulmonary artery and there is not a filling defect and left lower lobe only artery branch. Currently on Xarelto. Doppler of the lower extremities have been negative. 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 I reviewed the nurse rian lenoard's note and agree with the documented findings and plan of care. Lung sounds are positive for diminished breath sounds throughout the lung bansal. The findings and the impression was discussed with the patient. I attest to the documentation by the nurse practitioner. Time with Patient: Less than 30
[2021-01-23] MEDS: MELATONIN 3 MG TABLET PO SCH (16:58)
[2021-01-23] MEDS: PRAVASTATIN SODIUM 80 MG TAB PO SCH (16:58)
--- NOTE | 2021-01-23 17:13 | P.PN ---
Progress Note - Text Progress Note Date: 01/23/21 Chief Complaint: Shortness of breath History of presenting complaint: This is a pleasant 85-year-old patient follows with visiting physicians. Chronic stable medical conditions include hypothyroid, hypertension, hyperlipidemia, osteoarthritis. Does use a walker to baseline. Lives by herself. Patient noticed that she became short of breath yesterday. Slight cough. No fever no chills. Has had some edema also. Patient has good chronic urinary incontinence. Not very active. No chest pain. No fever no chills. Computed tomography scan in the ER suggestive of pulmonary embolism. Admitted with diagnosis of pneumonia, acute PE. Started on IV ceftriaxone, xar elto. January 21 Overnight patient became more short of breath. Some congestion. Pulmonary consulted this morning. Placed on BiPAP. Chest x-ray showing pneumonia. Congested cough. Clear phlegm. Lasix added by pulmonary January 22: Short of breath. On nasal cannula. Congested chest. Tired January 23: Reclining in bed. A bit less congestion. Breathing a bit better. Oral intake much improved. Review of systems: Was done for constitutional, cardiovascular, GI, pulmonary. relevant finding as above Active Medications Acetaminophen (Acetaminophen Tab 500 Mg Tab) 1,000 mg PO Q6H PRN PRN Reason: Pain Last Admin: 01/23/21 01:07 Dose: 1,000 mg Documented by: Albuterol Sulfate (Albuterol Hfa Inhaler) 2 puff INHALATION RT-QID [facility] Last Admin: 01/23/21 16:10 Dose: 2 puff Documented by: Albuterol Sulfate (Albuterol Hfa Inhaler) 2 puff INHALATION RT-Q4H PRN PRN Reason: Shortness Of Breath Or Wheezing Azithromycin (Azithromycin 500 Mg Tab) 500 mg PO DAILY [facility] Last Admin: 01/23/21 08:33 Dose: 500 mg Documented by: Carvedilol (Carvedilol 6.25 Mg Tab) 6.25 mg PO BID@0500,1900 [facility] Last Admin: 01/23/21 16:58 Dose: 6.25 mg Documented by: Furosemide (Furosemide 10 Mg/Ml 4 Ml Vial) 40 mg IV DAILY [facility] Last Admin: 01/23/21 08:33 Dose: 40 mg Documented by: Ceftriaxone Sodium 1 gm/ (Sodium Chloride) 50 mls @ 100 mls/hr IVPB Q24HR [facility] Last Admin: 01/23/21 08:33 Dose: 100 mls/hr Documented by: Levothyroxine Sodium (Levothyroxine 125 Mcg Tab) 125 mcg PO DAILY@0500 [facility] Last Admin: 01/23/21 05:59 Dose: 125 mcg Documented by: Melatonin (Melatonin 3 Mg Tablet) 3 mg PO HS@1900 [facility] Last Admin: 01/23/21 16:58 Dose: 3 mg Documented by: Methylprednisolone Sodium Succinate (Methylprednisolone Sod Succi 125 Mg/2 Ml Vial) 60 mg IV Q6HR [facility] Last Admin: 01/23/21 16:58 Dose: 60 mg Documented by: Naloxone HCl (Naloxone 0.4 Mg/Ml 1 Ml Vial) 0.2 mg IV Q2M PRN PRN Reason: Opioid Reversal Pravastatin Sodium (Pravastatin Sodium 80 Mg Tab) 80 mg PO HS@1900 [facility] Last Admin: 01/23/21 16:58 Dose: 80 mg Documented by: Rivaroxaban (Rivaroxaban 15 Mg Tab) 15 mg PO BID-W/MEALS [facility]; Protocol Last Admin: 01/23/21 16:58 Dose: 15 mg Documented by: Spironolactone (Spironolactone 25 Mg Tab) 25 mg PO BID@0500,1900 [facility] Last Admin: 01/23/21 16:58 Dose: 25 mg Documented by: Tiotropium [place] (Tiotropium 2.5 Mcg Inhaler) 1 puff INHALATION RT-DAILY [facility] Last Admin: 01/23/21 08:45 Dose: 1 puff Documented by: Past medical history to include: Hyperlipidemia, hypertension, myocardial infarction, hypothyroid, osteoarthriti s, urinary incontinence Social history: No history of smoking alcohol. Lives alone. Does use a walker. Family history: Reviewed, noncontributory to presentation Physical examination: VITAL SIGNS: 97.6, 70, 18, 140/49, 93% on 4 L GENERAL: Reclining in bed, tired, less short of breath EYES: Pupils equal. Conjunctiva normal.. NECK: JVD not raised; masses not palpable. HEART: First and second heart sounds are normal; some edema. LUNGS: Respiratory rate increased; decreased breath sounds. Decreased wheezing ABDOMEN: Soft, nontender, liver spleen not palpable, no masses palpable. PSYCH: Alert and oriented x3; mood and affect anxious MUSCULAR skeletal: Evidence of OA. INVESTIGATIONS, reviewed in the clinical context: January 22: WBC 5.3 hemoglobin 14.5 potassium 4.5 BUN 28 creatinine 0.76 proBNP 478 Influenza type A diabetes both not detected. Coronavirus [PCR]: Not detected January 21: ABG [pH 7.38, pCO2 66, pO2 55. Chest x-ray film personally reviewed by me: Infiltrate Pro-calcitonin 0.14 2-D echocardiogram: Moderate concentric LVH. EF 65-70% EKG tracing personally reviewed by me-normal sinus rhythm Chest x-ray film personally reviewed by me-infiltrate/pulmonary edema, cardiomegaly WBC 6.3 hemoglobin 15.2 platelets 119 d-dimer 1.86 potassium 4.3 BUN 31 at 0.83 ProBNP 161 Troponin I is 0.015 Assessment and plan: - pneumonia. Suspect gram-negative organism.: Slow to respond IV ceftriaxone 1 g every 12. Steroids added -Obesity hypoventilation syndrome element -Acute hypoxic and hypercapnic respiratory failure, multifactorial BiPAP. Currently on 4 L nasal cannula. -Acute pulmonary embolism xarelto 15 mg every 12 -Morbid obesity BMI 43.9 Weight loss measures -Chronic gait dysfunction Uses a walker to baseline -Hyperlipidemia Pravastatin 80 mg daily at bedtime -Chronic insomnia, from multiple problems Melatonin 3 mg daily at bedtime -Hypothyroid Synthroid 125 g daily -Essential hypertension Coreg 6.25 mg twice a day -Primary osteoarthritis multiple joints bilateral Use pain medications as needed -Doubt CHF Continue IV ceftriaxone 1 g every 12. Decrease IV Solu-Medrol to 40 mg every 8. Continue xarelto. Have the patient sit up. Other medications to continue. Check BMP and procalcitonin in a.m.
[2021-01-24] MEDS: methylPREDNISolone SOD SUCCI 40 MG/ML 1 ML VIAL IV SCH ×3 (00:08→17:41)
[2021-01-24] MEDS: ALBUTEROL HFA INHALER INHALATION SCH ×3 (00:21→09:17)
[2021-01-24] MEDS: SPIRONOLACTONE 25 MG TAB PO SCH ×2 (05:09→21:05)
[2021-01-24] MEDS: LEVOTHYROXINE 125 MCG TAB PO SCH (05:09)
[2021-01-24] MEDS: carvediloL 6.25 MG TAB PO SCH ×2 (05:09→21:05)
[2021-01-24 06:42] LABS: African American GFR (CKD) >90 (>60 ml/min/1.73 sqM); Anion Gap 4 mmol/L; Blood Urea Nitrogen 48 mg/dL (7-17); Carbon Dioxide 37 mmol/L (22-30); Chloride 98 mmol/L (98-107); Glucose 122 mg/dL (74-99); Non-African American GFR(CKD) 83 (>60 ml/min/1.73 sqM); Potassium 4.8 mmol/L (3.5-5.1); Sodium 139 mmol/L (137-145)
[2021-01-24] MEDS: TIOTROPIUM 2.5 MCG INHALER INHALATION SCH (09:21)
[2021-01-24] MEDS: FUROSEMIDE 10 MG/ML 4 ML VIAL IV SCH (09:29)
[2021-01-24] MEDS: IPRATROPIUM-ALBUTEROL 3 ML NEB INHALATION SCH ×4 (12:00→23:51)
[2021-01-24] MEDS: RIVAROXABAN 15 MG TAB PO SCH ×2 (12:47→17:41)
[2021-01-24] MEDS: AZITHROMYCIN 500 MG TAB PO SCH (12:47)
--- NOTE | 2021-01-24 18:15 | P.PN ---
Subjective Progress Note Date: 01/24/21 Principal diagnosis: Acute hypoxic respiratory failure 85-year-old morbidly obese female patient who was sent yesterday because of increased shortness of breath. I saw her in consultation today. The patient was somewhat lethargic and sleepy. Yet she was arousable. Immediately, blood gas was done that showed a pH of 7.38 with a pCO2 of 66 and pO2 of 5500/there was no signs of any CO2 narcosis. Nevertheless, on examination, she was quite bronchospastic and wheezy. The patient has already been worked up earlier. As part of her workup, she was found to have a d-dimer of 1.86 and her COVID-19 testing was negative. Pro-calcitonin level was at 0.14. The white cell count was at 6.3. Chest x-ray was reviewed. CAT scan of the chest was reviewed. Is a concern of for a questionable right upper lobe subsegmental secondary/tertiary branch pulmonary artery embolism. I so a filling defect in the left lower lobe pulmonary artery branch. The patient is currently on Xarelto. Doppler of the lower extremity was also ordered.. Meanwhile, the patient is also covered with antibiotics. The CAT scan of the chest showed some left lower lobe consolidation/atelectasis and the patient is currently on Rocephin. Hemodynamically stable. No other complaints otherwise for now. No nausea. No vomiting. No diarrhea. No abdominal pain. She is morbidly obese with a BMI of 43.9. 01/22/2021, clinically the patient is clinically improved compared to yesterday. She is more awake. Less short of breath. Less bronchospastic and wheezy. She is the BiPAP overnight. She is being diuresed with Lasix 40 mg every 12 hours. Fluid balance is negative and order of 800 mL. She is also on IV Solu-Medrol. She is on bronchodilators patient is on Xarelto. No other new complaints. Pro- calcitonin level was at 0.114 and the proBNP level was at 478. On 01/23/2021 patient seen in follow-up on medical surgical floor, she is resting comfortably in bed, appears to be in no acute distress, she is currently 4 L of oxygen pulse ox is 93%, she did wear BiPAP part of the night, tolerated it fairly well, she is mildly wheezy on today's evaluation, overall improved. Patient remains on IV Lasix 40 mg daily, she remains on azithromycin and Rocephin. She is in negative fluid balance. Slightly bronchospastic, she remains on IV steroids at 60 mg every 6 hours. A lateral lower extremity Dopplers were negative for DVT. On 01/24/2021 patient seen in follow-up on medical surgical floor. She is resting comfortably in bed, in no acute distress, she is more awake and responsive this exam, not require BiPAP support overnight. She has been diuresed, patient is -700 mL fluid balance of +24 hours, lower extremity edema is significantly improved. The wheezing and dyspnea have improved, she remains on IV steroids, and nebulized bronchodilators. No Fever or chills overnight. Patient remains on azithromycin and Rocephin. Patient denies any cough, no phlegm production, her pro-calcitonin level came back negative at 0.06. Objective - Vital Signs Vital signs: Vital Signs Temp 97.8 F 01/24/21 16:00 Pulse 66 01/24/21 16:57 Resp 17 01/24/21 16:00 BP 116/74 01/24/21 16:00 Pulse Ox 94 L 01/24/21 16:00 Intake & Output 01/23/21 01/24/21 01/24/21 18:59 06:59 18:59 Intake Total 50 Output Total 750 Balance -700 Intake: Intake, IV Titration 50 Amount cefTRIAXone 1 gm In 50 Sodium Chloride 0.9% 50 ml @ 100 mls/hr IVPB Q24HR [facility] Rx#:[id number] Output: Urine 750 Other: Voiding Method External Catheter External Catheter External Catheter - Exam GENERAL EXAM: Alert, very pleasant, 85-year-old white female, resting comfortably in bed, on 3 L of oxygen pulse ox is 93%, comfortable in no apparent distress. HEAD: Normocephalic/atraumatic. Face is mariah, which is apparently chronic for the patient EYES: Normal reaction of pupils, equal size. Conjunctiva pink, sclera white. NOSE: Clear with pink turbinates. THROAT: No erythema or exudates. NECK: No masses, no JVD, no thyroid enlargement, no adenopathy. CHEST: No chest wall deformity. Symmetrical expansion. LUNGS: Equal air entry with minimal wheezing CVS: Regular rate and rhythm, normal S1 and S2, no gallops, no murmurs, no rubs ABDOMEN: Soft, nontender. No hepatosplenomegaly, normal bowel sounds, no guar ding or rigidity. EXTREMITIES: No clubbing, mild lower extremity edema, no cyanosis, 2+ pulses and upper and lower extremities. MUSCULOSKELETAL: Muscle strength and tone normal. SPINE: No scoliosis or deformity SKIN: No rashes CENTRAL NERVOUS SYSTEM: Alert and oriented -3. No focal deficits, tone is normal in all 4 extremities. PSYCHIATRIC: Alert and oriented -3. Appropriate affect. Intact judgment and insight. - Labs CBC & Chem 7: 01/22/21 07:14 01/24/21 05:59 Labs: Abnormal Lab Results - Last 24 Hours (Table) 01/24/21 Range/Units 05:59 Carbon Dioxide 37 H (22-30) mmol/L BUN 48 H (7-17) mg/dL Glucose 122 H (74-99) mg/dL Assessment and Plan Plan: 1 acute hypoxic respiratory failure/shortness of breath currently under investigation. Consider left lower lobe pneumonia as the patient has an area of consolidation/atelectasis in left lung base currently on IV Rocephin. Consider pulmonary embolism although this is quite not certain. The patient has some personal filling defects in the secondary branches to the right upper lobe pulmonary artery and there is not a filling defect and left lower lobe only artery branch. Currently on Xarelto. Doppler of the lower extremities have been negative. 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 I performed a history & physical examination of the patient and discussed their management with my nurse practitioner, Jessica Dawson. I reviewed the nurse practitioner's note and agree with the documented findings and plan of care. Lung sounds are positive for diminished breath sounds throughout the lung bansal. The findings and the impression was discussed with the patient. I attest to the documentation by the nurse practitioner. Time with Patient: Less than 30
[2021-01-24] MEDS: PRAVASTATIN SODIUM 80 MG TAB PO SCH (21:05)
[2021-01-24] MEDS: MELATONIN 3 MG TABLET PO SCH (21:05)
[2021-01-24] MEDS ORDERED: IPRATROPIUM-ALBUTEROL 3 ML NEB INHALATION STA (21:08)
--- NOTE | 2021-01-24 22:13 | XR ---
EXAMINATION TYPE: XR chest 2V DATE OF EXAM: 01/24/2021 COMPARISON: 01/21/2021 HISTORY: Pneumonia follow-up TECHNIQUE: FINDINGS: Heart is enlarged. There is some pulmonary vascular congestion. There is blunting of the co stophrenic angles. IMPRESSION: There is evidence of congestive heart failure with pleural effusions. Pulmonary congestio n increased compared to recent exam. Lower lobe pneumonia not excluded.
--- NOTE | 2021-01-24 22:18 | P.PN ---
Progress Note - Text Progress Note Date: 01/24/21 Chief Complaint: Shortness of breath History of presenting complaint: This is a pleasant 85-year-old patient follows with visiting physicians. Chronic stable medical conditions include hypothyroid, hypertension, hyperlipidemia, osteoarthritis. Does use a walker to baseline. Lives by herself. Patient noticed that she became short of breath yesterday. Slight cough. No fever no chills. Has had some edema also. Patient has good chronic urinary incontinence. Not very active. No chest pain. No fever no chills. Computed tomography scan in the ER suggestive of pulmonary embolism. Admitted with diagnosis of pneumonia, acute PE. Started on IV ceftriaxone, xar elto. January 21 Overnight patient became more short of breath. Some congestion. Pulmonary consulted this morning. Placed on BiPAP. Chest x-ray showing pneumonia. Congested cough. Clear phlegm. Lasix added by pulmonary January 22: Short of breath. On nasal cannula. Congested chest. Tired January 23: Reclining in bed. A bit less congestion. Breathing a bit better. Oral intake much improved. January 24: Sitting up reclining in bed. Eating about 50%. Shortness of breath. Tired. Not wheezing much. Discussed with Dr. Drake. Stop IV Lasix. Patient is getting alkalotic. Discussed with nurse to instruct the patient about incentive spirometry. Antibiotics discontinued by pulmonary. Review of systems: Was done for constitutional, cardiovascular, GI, pulmonary. relevant finding as above Active Medications Acetaminophen (Acetaminophen Tab 500 Mg Tab) 1,000 mg PO Q6H PRN PRN Reason: Pain Last Admin: 01/23/21 01:07 Dose: 1,000 mg Documented by: Albuterol Sulfate (Albuterol Hfa Inhaler) 2 puff INHALATION RT-Q4H PRN PRN Reason: Shortness Of Breath Or Wheezing Albuterol/Ipratropium (Ipratropium-Albuterol 3 Ml Neb) 3 ml INHALATION RT-Q4H [facility] Last Admin: 01/24/21 20:18 Dose: 3 ml Documented by: Carvedilol (Carvedilol 6.25 Mg Tab) 6.25 mg PO BID@0500,1900 [facility] Last Admin: 01/24/21 21:05 Dose: 6.25 mg Documented by: Levothyroxine Sodium (Levothyroxine 125 Mcg Tab) 125 mcg PO DAILY@0500 [facility] Last Admin: 01/24/21 05:09 Dose: 125 mcg Documented by: Melatonin (Melatonin 3 Mg Tablet) 3 mg PO HS@1900 [facility] Last Admin: 01/24/21 21:05 Dose: 3 mg Documented by: Methylprednisolone Sodium Succinate (Methylprednisolone Sod Succi 40 Mg/Ml 1 Ml Vial) 40 mg IV Q8HR [facility] Last Admin: 01/24/21 17:41 Dose: 40 mg Documented by: Naloxone HCl (Naloxone 0.4 Mg/Ml 1 Ml Vial) 0.2 mg IV Q2M PRN PRN Reason: Opioid Reversal Pravastatin Sodium (Pravastatin Sodium 80 Mg Tab) 80 mg PO HS@1900 [facility] Last Admin: 01/24/21 21:05 Dose: 80 mg Documented by: Rivaroxaban (Rivaroxaban 15 Mg Tab) 15 mg PO BID-W/MEALS [facility]; Protocol Last Admin: 01/24/21 17:41 Dose: 15 mg Documented by: Spironolactone (Spironolactone 25 Mg Tab) 25 mg PO BID@0500,1900 [facility] Last Admin: 01/24/21 21:05 Dose: 25 mg Documented by: Past medical history to include: Hyperlipidemia, hypertension, myocardial infarction, hypothyroid, osteoarthritis, urinary incontinence Social history: No history of smoking alcohol. Lives alone. Does use a walker. Family history: Reviewed, noncontributory to presentation Physical examination: VITAL SIGNS: 96.3, 61, 16, 150/80, 94% on 3 L GENERAL: Reclining in bed, tired, less short of breath EYES: Pupils equal. Conjunctiva normal.. NECK: JVD not raised; masses not palpable. HEART: First and second heart sounds are normal; some edema. LUNGS: Respiratory rate increased; decreased breath sounds. ABDOMEN: Soft, nontender, liver spleen not palpable, no masses palpable. PSYCH: Alert and oriented x3; mood and affect anxious MUSCULAR skeletal: Evidence of OA. INVESTIGATIONS, reviewed in the clinical context: January 24: Potassium 4.8 BUN 48 creatinine 0.59 bicarb 37. Pro-calcitonin 0.06 January 22: WBC 5.3 hemoglobin 14.5 potassium 4.5 BUN 28 creatinine 0.76 proBNP 478 Influenza type A diabetes both not detected. Coronavirus [PCR]: Not detected January 21: ABG [pH 7.38, pCO2 66, pO2 55. Chest x-ray film personally reviewed by me: Infiltrate Pro-calcitonin 0.14 2-D echocardiogram: Moderate concentric LVH. EF 65-70% EKG tracing personally reviewed by me-normal sinus rhythm Chest x-ray film personally reviewed by me-infiltrate/pulmonary edema, cardiomegaly WBC 6.3 hemoglobin 15.2 platelets 119 d-dimer 1.86 potassium 4.3 BUN 31 at 0.83 ProBNP 161 Troponin I is 0.015 Assessment and plan: - pneumonia. Suspect gram-negative organism.: IV ceftriaxone 1 g every 12. Antibiotics discontinued by pulmonary. Procalcitonin 0.06 -Obesity hypoventilation syndrome component -Acute COPD exacerbation in a nonsmoker: Slow to respond DuoNeb every 4, inhaled and IV steroids, inhaled long-acting beta agonist -Acute hypoxic and hypercapnic respiratory failure, multifactorial BiPAP. Currently on 3 L nasal cannula. -Acute pulmonary embolism xarelto 15 mg every 12 -Morbid obesity BMI 43.9 Weight loss measures -Chronic gait dysfunction Uses a walker to baseline -Hyperlipidemia Pravastatin 80 mg daily at bedtime -Chronic insomnia, from multiple problems Melatonin 3 mg daily at bedtime -Hypothyroid Synthroid 125 g daily -Essential hypertension Coreg 6.25 mg twice a day -Primary osteoarthritis multiple joints bilateral Use pain medications as needed -Doubt CHF -Metabolic alkalosis from IV Lasix and steroids DC IV Lasix IV antiemetics discontinued. IV Solu-Medrol. use incentive spirometry. Change to DuoNeb every 4. Add inhaled steroids. inhaled long-acting beta agonist
[2021-01-24] MEDS: FORMOTEROL FUMARATE 20 MCG/2 ML NEBU INHALATION SCH (23:37)
[2021-01-24] MEDS: BUDESONIDE 1 MG/2 ML NEBU INHALATION SCH (23:37)
[2021-01-25] MEDS: methylPREDNISolone SOD SUCCI 40 MG/ML 1 ML VIAL IV SCH ×2 (00:54→09:05)
[2021-01-25] MEDS: IPRATROPIUM-ALBUTEROL 3 ML NEB INHALATION SCH ×6 (04:10→23:21)
[2021-01-25] MEDS: SPIRONOLACTONE 25 MG TAB PO SCH (04:59)
[2021-01-25] MEDS: carvediloL 6.25 MG TAB PO SCH ×2 (04:59→17:50)
[2021-01-25] MEDS: LEVOTHYROXINE 125 MCG TAB PO SCH (04:59)
[2021-01-25] MEDS: RIVAROXABAN 15 MG TAB PO SCH ×2 (09:05→17:49)
[2021-01-25] MEDS: FORMOTEROL FUMARATE 20 MCG/2 ML NEBU INHALATION SCH ×2 (09:45→19:19)
[2021-01-25] MEDS: BUDESONIDE 1 MG/2 ML NEBU INHALATION SCH ×2 (09:45→19:19)
--- NOTE | 2021-01-25 11:18 | P.PN ---
Subjective Progress Note Date: 01/25/21 85-year-old morbidly obese female patient who was sent yesterday because of increased shortness of breath. I saw her in consultation today. The patient was somewhat lethargic and sleepy. Yet she was arousable. Immediately, blood gas was done that showed a pH of 7.38 with a pCO2 of 66 and pO2 of 5500/there was no signs of any CO2 narcosis. Nevertheless, on examination, she was quite bronchospastic and wheezy. The patient has already been worked up earlier. As part of her workup, she was found to have a d-dimer of 1.86 and her COVID-19 testing was negative. Pro-calcitonin level was at 0.14. The white cell count was at 6.3. Chest x-ray was reviewed. CAT scan of the chest was reviewed. Is a concern of for a questionable right upper lobe subsegmental secondary/tertiary branch pulmonary artery embolism. I so a filling defect in the left lower lobe pulmonary artery branch. The patient is currently on Xarelto. Doppler of the lower extremity was also ordered.. Meanwhile, the patient is also covered with antibiotics. The CAT scan of the chest showed some left lower lobe consolidati on/atelectasis and the patient is currently on Rocephin. Hemodynamically stable. No other complaints otherwise for now. No nausea. No vomiting. No diarrhea. No abdominal pain. She is morbidly obese with a BMI of 43.9. 01/22/2021, clinically the patient is clinically improved compared to yesterday. She is more awake. Less short of breath. Less bronchospastic and wheezy. She is the BiPAP overnight. She is being diuresed with Lasix 40 mg every 12 hours. Fluid balance is negative and order of 800 mL. She is also on IV Solu-Medrol. She is on bronchodilators patient is on Xarelto. No other new complaints. Pro- calcitonin level was at 0.114 and the proBNP level was at 478. On 01/23/2021 patient seen in follow-up on medical surgical floor, she is resting comfortably in bed, appears to be in no acute distress, she is currently 4 L of oxygen pulse ox is 93%, she did wear BiPAP part of the night, tolerated it fairly well, she is mildly wheezy on today's evaluation, overall improved. Patient remains on IV Lasix 40 mg daily, she remains on azithromycin and Rocephin. She is in negative fluid balance. Slightly bronchospastic, she remains on IV steroids at 60 mg every 6 hours. A lateral lower extremity Dopplers were negative for DVT. On 01/24/2021 patient seen in follow-up on medical surgical floor. She is resting comfortably in bed, in no acute distress, she is more awake and responsive this exam, not require BiPAP support overnight. She has been diuresed, patient is -700 mL fluid balance of +24 hours, lower extremity edema is significantly improved. The wheezing and dyspnea have improved, she remains on IV steroids, and nebulized bronchodilators. No Fever or chills overnight. Patient remains on azithromycin and Rocephin. Patient denies any cough, no phle gm production, her pro-calcitonin level came back negative at 0.06. 01/25/2021, the patient is essentially laying down and better but she is comfortable and she is less bronchospastic and wheezy. Her chest exit shows smaller lung volumes and atelectatic changes in lung bases bilaterally. Her pre sentation was mainly because of increased dyspnea and bronchospasm wheezing. She was diureses and she was taken off the diuretics pH she was treated with bronchodilators and IV steroids and she became less focused bronchospastic and wheezy. Her pro-calcitonin level is low at 0.06. No other complaints for now. Antibiotic-garcia, the patient was covered with a combination of Rocephin and Zithromax which was stopped yesterday. She is tolerating her diet. No other significant events otherwise for now. Labs from today is showing normal renal function with a creatinine of 0.58. She is quite debilitated and weak. b Objective - Vital Signs Vital signs: Vital Signs Temp 98 F 01/25/21 07:30 Pulse 76 01/25/21 10:05 Resp 15 01/25/21 08:00 BP 167/78 01/25/21 07:30 Pulse Ox 90 L 01/25/21 09:45 Intake & Output 01/24/21 01/25/21 01/25/21 18:59 06:59 18:59 Output Total 500 Balance -500 Output: Urine 500 Other: Voiding Method External Catheter External Catheter Diaper External Catheter # Voids 3 - Exam GENERAL: BMI 43.9, laying in bed, slightly tired. Lethargic and sleepy at arousable. Follows commands and answers questions appropriately. Head exam was generally normal. There was no scleral icterus or corneal arcus. Mucous membranes were moist. EYES: Pupils equal. Conjunctiva normal. HEENT: External appearance of nose and ears normal, oral cavity grossly normal. The patient is significant crowding of the posterior oropharynx with a Mallampati class IV NECK: JVD not raised; masses not palpable. HEART: First and second heart sounds are normal; some edema. LUNGS: Respiratory rate increased; decreased breath sounds. Scattered expiratory wheezes throughout the lung his bilaterally ABDOMEN: Soft, nontender, liver spleen not palpable, no masses palpable. PSYCH: Alert and oriented x3; mood and affect normal MUSCULAR skeletal: Evidence of OA. NEUROLOGICAL: Cranial nerves grossly intact; no facial asymmetry, power and sensation grossly intact. LYMPHATICS: No lymph nodes palpable in the axilla and neck, trace edema in lower extremities bilaterally Examination of the extremities revealed easily palpable radial, femoral and pedal pulses. There was no cyanosis, clubbing or trace edema in lower ext remities bilaterally - Labs CBC & Chem 7: 01/22/21 07:14 01/24/21 05:59 Assessment and Plan Plan: 1 acute hypoxic respiratory failure/shortness of breath currently under investigation. Consider left lower lobe pneumonia as the patient has an area of consolidation/atelectasis in left lung base currently on IV Rocephin. Consider pulmonary embolism although this is quite not certain. The patient has some personal filling defects in the secondary branches to the right upper lobe pulmonary artery and there is not a filling defect and left lower lobe only artery branch. Currently on Xarelto. Doppler of the lower extremities have been negative. Troponin level was low. The patient is currently on anticoag ulation. The patient is also being treated for an acute COPD exacerbation with a combination of broncho-dilators and steroids. She is considerably improved. She is very much debilitated in general and her performance and functional status extremely poor. 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 ProBNP level is not elevated. IV Solu-Medrol and put the patient on a prednisone burst taper [facility] we'll sign off
[2021-01-25] MEDS: LORATADINE 10 MG TAB PO SCH ×2 (17:53→22:12)
[2021-01-25] MEDS ORDERED: LACTATED RINGERS 1,000 ML IV SCH (20:30)
--- NOTE | 2021-01-25 20:33 | P.PN ---
Progress Note - Text Progress Note Date: 01/25/21 Chief Complaint: Shortness of breath History of presenting complaint: This is a pleasant 85-year-old patient follows with visiting physicians. Chronic stable medical conditions include hypothyroid, hypertension, hyperlipidemia, osteoarthritis. Does use a walker to baseline. Lives by herself. Patient noticed that she became short of breath yesterday. Slight cough. No fever no chills. Has had some edema also. Patient has good chronic urinary incontinence. Not very active. No chest pain. No fever no chills. Computed tomography scan in the ER suggestive of pulmonary embolism. Admitted with diagnosis of pneumonia, acute PE. Started on IV ceftriaxone, xar elto. January 21 Overnight patient became more short of breath. Some congestion. Pulmonary consulted this morning. Placed on BiPAP. Chest x-ray showing pneumonia. Congested cough. Clear phlegm. Lasix added by pulmonary January 22: Short of breath. On nasal cannula. Congested chest. Tired January 23: Reclining in bed. A bit less congestion. Breathing a bit better. Oral intake much improved. January 24: Sitting up reclining in bed. Eating about 50%. Shortness of breath. Tired. Not wheezing much. Discussed with Dr. Drake. Stop IV Lasix. Patient is getting alkalotic. Discussed with nurse to instruct the patient about incentive spirometry. Antibiotics discontinued by pulmonary. January 25: Reclining in bed. Tired. Eating about 50%. Feeling very dry. Dry mouth. Review of systems: Was done for constitutional, cardiovascular, GI, pulmonary. relevant finding as above Past medical history to include: Hyperlipidemia, hypertension, myocardial infarction, hypothyroid, o steoarthritis, urinary incontinence Social history: No history of smoking alcohol. Lives alone. Does use a walker. Family history: Reviewed, noncontributory to presentation Physical examination: VITAL SIGNS: 97.9, 74, 20, 140/76, 90% on 5 L GENERAL: Reclining in bed, tired, some short of breath EYES: Pupils equal. Conjunctiva normal.. NECK: JVD not raised; masses not palpable. HEART: First and second heart sounds are normal; some edema. LUNGS: Respiratory rate increased; decreased breath sounds. ABDOMEN: Soft, nontender, liver spleen not palpable, no masses palpable. PSYCH: Alert and oriented x3; mood and affect anxious MUSCULAR skeletal: Evidence of OA. INVESTIGATIONS, reviewed in the clinical context: January 24: Potassium 4.8 BUN 48 creatinine 0.59 bicarb 37. Pro-calcitonin 0.06 January 22: WBC 5.3 hemoglobin 14.5 potassium 4.5 BUN 28 creatinine 0.76 proBNP 478 Influenza type A diabetes both not detected. Coronavirus [PCR]: Not detected January 21: ABG [pH 7.38, pCO2 66, pO2 55. Chest x-ray film personally reviewed by me: Infiltrate Pro-calcitonin 0.14 2-D echocardiogram: Moderate concentric LVH. EF 65-70% EKG tracing personally reviewed by me-normal sinus rhythm Chest x-ray film personally reviewed by me-infiltrate/pulmonary edema, cardiomegaly WBC 6.3 hemoglobin 15.2 platelets 119 d-dimer 1.86 potassium 4.3 BUN 31 at 0.83 ProBNP 161 Troponin I is 0.015 Assessment and plan: - pneumonia. Suspect gram-negative organism.: IV ceftriaxone 1 g every 12. Antibiotics discontinued by pulmonary. Procalcitonin 0.06 -Obesity hypoventilation syndrome component -Acute COPD exacerbation in a nonsmoker: Slow to respond DuoNeb every 4, inhaled and IV steroids, inhaled long-acting beta agonist -Acute hypoxic and hypercapnic respiratory failure, multifactorial BiPAP. Currently on 3 L nasal cannula. -Acute pulmonary embolism xarelto 15 mg every 12 -Morbid obesity BMI 43.9 Weight loss measures -Chronic gait dysfunction Uses a walker to baseline -Hyperlipidemia Pravastatin 80 mg daily at bedtime -Chronic insomnia, from multiple problems Melatonin 3 mg daily at bedtime -Hypothyroid Synthroid 125 g daily -Essential hypertension Coreg 6.25 mg twice a day -Primary osteoarthritis multiple joints bilateral Use pain medications as needed -Doubt CHF -Metabolic alkalosis from IV Lasix and steroids DC IV Lasix IV steroids. Clinically appears to be dry. Gentle hydration overnight. Prognosis guarded.
[2021-01-25] MEDS: PRAVASTATIN SODIUM 80 MG TAB PO SCH (22:12)
[2021-01-25] MEDS: MELATONIN 3 MG TABLET PO SCH (23:00)
[2021-01-26] MEDS: IPRATROPIUM-ALBUTEROL 3 ML NEB INHALATION SCH ×5 (03:37→20:21)
[2021-01-26] MEDS: LEVOTHYROXINE 125 MCG TAB PO SCH (05:22)
[2021-01-26] MEDS: FORMOTEROL FUMARATE 20 MCG/2 ML NEBU INHALATION SCH ×2 (09:04→20:19)
[2021-01-26] MEDS: BUDESONIDE 1 MG/2 ML NEBU INHALATION SCH ×2 (09:04→20:19)
[2021-01-26] MEDS: ACETAMINOPHEN TAB 500 MG TAB PO PRN ×2 (09:12→17:00)
[2021-01-26] MEDS: RIVAROXABAN 15 MG TAB PO SCH ×2 (09:12→17:00)
[2021-01-26] MEDS: FUROSEMIDE 40 MG TAB PO SCH (09:13)
[2021-01-26] MEDS: LORATADINE 10 MG TAB PO SCH ×2 (09:13→21:03)
[2021-01-26] MEDS: predniSONE 10 MG TAB PO SCH (09:13)
--- NOTE | 2021-01-26 10:05 | XR ---
EXAMINATION TYPE: XR chest 1V DATE OF EXAM: 01/26/2021 COMPARISON: 01/24/2021 HISTORY: Shortness of breath TECHNIQUE: Single frontal view of the chest is obtained. FINDINGS: Hemidiaphragms are obscured likely secondary to combination of small pleural fusions and a telectasis. Pneumonic infiltrate excluded. The heart size is normal. The pulmonary vasculature is not appear congested. There is no pneumothorax . The osseous structures are grossly intact. Pression: Mild to moderate bibasilar opacities as described above.
--- NOTE | 2021-01-26 15:51 | P.PN ---
Progress Note - Text Progress Note Date: 01/26/21 Chief Complaint: Shortness of breath History of presenting complaint: This is a pleasant 85-year-old patient follows with visiting physicians. Chronic stable medical conditions include hypothyroid, hypertension, hyperlipidemia, osteoarthritis. Does use a walker to baseline. Lives by herself. Patient noticed that she became short of breath yesterday. Slight cough. No fever no chills. Has had some edema also. Patient has good chronic urinary incontinence. Not very active. No chest pain. No fever no chills. Computed tomography scan in the ER suggestive of pulmonary embolism. Admitted with diagnosis of pneumonia, acute PE. Started on IV ceftriaxone, xar elto. January 21 Overnight patient became more short of breath. Some congestion. Pulmonary consulted this morning. Placed on BiPAP. Chest x-ray showing pneumonia. Congested cough. Clear phlegm. Lasix added by pulmonary January 22: Short of breath. On nasal cannula. Congested chest. Tired January 23: Reclining in bed. A bit less congestion. Breathing a bit better. Oral intake much improved. January 24: Sitting up reclining in bed. Eating about 50%. Shortness of breath. Tired. Not wheezing much. Discussed with Dr. Drake. Stop IV Lasix. Patient is getting alkalotic. Discussed with nurse to instruct the patient about incentive spirometry. Antibiotics discontinued by pulmonary. January 25: Reclining in bed. Tired. Eating about 50%. Feeling very dry. Dry mouth. January 26: Reclining in bed. Eating some. Short of breath. Some congested cough. Discussed with Dr. Drake from pulmonary. Prognosis guarded. Nothing more to be offered. I talked to the patient about guarded prognosis. Made DO NOT RESUSCITATE. Also spoke to patient's daughter Agustina Jacobo, as per patient wishes. She will inform other siblings about poor prognosis Review of systems: Was done for constitutional, cardiovascular, GI, pulmonary. relevant finding as above Active Medications Acetaminophen (Acetaminophen Tab 500 Mg Tab) 1,000 mg PO Q6H PRN PRN Reason: Pain Last Admin: 01/26/21 09:12 Dose: 1,000 mg Documented by: Albuterol Sulfate (Albuterol Hfa Inhaler) 2 puff INHALATION RT-Q4H PRN PRN Reason: Shortness Of Breath Or Wheezing Albuterol/Ipratropium (Ipratropium-Albuterol 3 Ml Neb) 3 ml INHALATION RT-Q4H [facility] Last Admin: 01/26/21 13:18 Dose: 3 ml Documented by: Budesonide (Budesonide 1 Mg/2 Ml Nebu) 1 mg INHALATION RT-BID [facility] Last Admin: 01/26/21 09:04 Dose: 1 mg Documented by: Carvedilol (Carvedilol 6.25 Mg Tab) 6.25 mg PO BID@0500,1900 [facility] Last Admin: 01/25/21 17:50 Dose: 6.25 mg Documented by: Formoterol Fumarate (Formoterol Fumarate 20 Mcg/2 Ml Nebu) 20 mcg INHALATION RT-BID [facility] Last Admin: 01/26/21 09:04 Dose: 20 mcg Documented by: Furosemide (Furosemide 40 Mg Tab) 40 mg PO DAILY [facility] Last Admin: 01/26/21 09:13 Dose: 40 mg Documented by: Guaifenesin (Guaifenesin 600 Mg Tablet.Er) 600 mg PO QID [facility] Levothyroxine Sodium (Levothyroxine 125 Mcg Tab) 125 mcg PO DAILY@0500 [facility] Last Admin: 01/26/21 05:22 Dose: 125 mcg Documented by: Loratadine (Loratadine 10 Mg Tab) 5 mg PO Q12HR [facility] Last Admin: 01/26/21 09:13 Dose: 5 mg Documented by: Melatonin (Melatonin 3 Mg Tablet) 3 mg PO HS@1900 [facility] Last Admin: 01/25/21 23:00 Dose: 3 mg Documented by: Naloxone HCl (Naloxone 0.4 Mg/Ml 1 Ml Vial) 0.2 mg IV Q2M PRN PRN Reason: Opioid Reversal Pravastatin Sodium (Pravastatin Sodium 80 Mg Tab) 80 mg PO HS@1900 [facility] Last Admin: 01/25/21 22:12 Dose: 80 mg Documented by: Prednisone (Prednisone 10 Mg Tab) 30 mg PO DAILY [facility] Last Admin: 01/26/21 09:13 Dose: 30 mg Documented by: Rivaroxaban (Rivaroxaban 15 Mg Tab) 15 mg PO BID-W/MEALS [facility]; Protocol Last Admin: 01/26/21 09:12 Dose: 15 mg Documented by: Past medical history to include: Hyperlipidemia, hypertension, myocardial infarction, hypothyroid, osteoarthritis, urinary incontinence Social history: No history of smoking alcohol. Lives alone. Does use a walker. Family history: Reviewed, noncontributory to presentation Physical examination: VITAL SIGNS: 97.6, 61, 19, 146/93, 93% on 5 L GENERAL: Reclining in bed, tired, congested cough EYES: Pupils equal. Conjunctiva normal.. NECK: JVD not raised; masses not palpable. HEART: First and second heart sounds are normal; some edema. LUNGS: Respiratory rate increased; decreased breath sounds. ABDOMEN: Soft, nontender, liver spleen not palpable, no masses palpable. PSYCH: Alert and oriented x3; mood and affect anxious MUSCULAR skeletal: Evidence of OA. INVESTIGATIONS, reviewed in the clinical context: January 24: Potassium 4.8 BUN 48 creatinine 0.59 bicarb 37. Pro-calcitonin 0.06 January 22: WBC 5.3 hemoglobin 14.5 potassium 4.5 BUN 28 creatinine 0.76 proBNP 478 Influenza type A diabetes both not detected. Coronavirus [PCR]: Not detected January 21: ABG [pH 7.38, pCO2 66, pO2 55. Chest x-ray film personally reviewed by me: Infiltrate Pro-calcitonin 0.14 2-D echocardiogram: Moderate concentric LVH. EF 65-70% EKG tracing personally reviewed by me-normal sinus rhythm Chest x-ray film personally reviewed by me-infiltrate/pulmonary edema, cardiomegaly WBC 6.3 hemoglobin 15.2 platelets 119 d-dimer 1.86 potassium 4.3 BUN 31 at 0.83 ProBNP 161 Troponin I is 0.015 Assessment and plan: - pneumonia. Suspect gram-negative organism.: IV ceftriaxone 1 g every 12. Antibiotics discontinued by pulmonary. Procalcitonin 0.06 -Obesity hypoventilation syndrome component -Acute COPD exacerbation in a nonsmoker: Slow to respond DuoNeb every 4, inhaled and IV steroids-changed to by mouth steroids, inhaled long-acting beta agonist -Acute hypoxic and hypercapnic respiratory failure, multifactorial BiPAP. Currently on 5 L nasal cannula. -Acute pulmonary embolism xarelto 15 mg every 12 -Morbid obesity BMI 43.9 Weight loss measures -Chronic gait dysfunction Uses a walker to baseline -Hyperlipidemia Pravastatin 80 mg daily at bedtime -Chronic insomnia, from multiple problems Melatonin 3 mg daily at bedtime -Hypothyroid Synthroid 125 g daily -Essential hypertension Coreg 6.25 mg twice a day -Primary osteoarthritis multiple joints bilateral Use pain medications as needed -Doubt CHF -Metabolic alkalosis from IV Lasix and steroids DC IV Lasix Prognosis guarded. [place] Ativan available today so patient will be discharged tomorrow back to her [facility]FC. Hospice can be opened air once the patient decides about the same. Advanced care planning: Had a long the discussion with the patient the bedside. Patient takes her own decisions. Understands the guarded prognosis. Has agreeable to proceed with no CODE STATUS. Also understands the need for hospice if she she deteriorates. She like to go back to her AFC home. Hospice can be arranged through her visiting physicians. She'll require oxygen to go back. This was discussed. She wants me to inform her daughter which I did. Total time spent for this about 20 minutes
[2021-01-26] MEDS: carvediloL 6.25 MG TAB PO SCH (17:00)
[2021-01-26] MEDS: guaiFENesin 600 MG TABLET.ER PO SCH ×2 (17:00→21:03)
[2021-01-26] MEDS: MELATONIN 3 MG TABLET PO SCH (17:01)
[2021-01-26] MEDS: PRAVASTATIN SODIUM 80 MG TAB PO SCH (17:01)
[2021-01-26] MEDS: LORazepam 0.5 MG TAB PO PRN (21:03)
[2021-01-27] MEDS: IPRATROPIUM-ALBUTEROL 3 ML NEB INHALATION SCH ×7 (01:37→23:29)
[2021-01-27] MEDS: carvediloL 6.25 MG TAB PO SCH ×2 (06:10→18:04)
[2021-01-27] MEDS: LEVOTHYROXINE 125 MCG TAB PO SCH (06:10)
[2021-01-27] MEDS: LORazepam 0.5 MG TAB PO PRN (06:11)
[2021-01-27] MEDS: FUROSEMIDE 40 MG TAB PO SCH (08:17)
[2021-01-27] MEDS: guaiFENesin 600 MG TABLET.ER PO SCH ×4 (08:17→20:59)
[2021-01-27] MEDS: predniSONE 10 MG TAB PO SCH (08:17)
[2021-01-27] MEDS: LORATADINE 10 MG TAB PO SCH ×2 (08:18→20:59)
[2021-01-27] MEDS: RIVAROXABAN 15 MG TAB PO SCH ×2 (08:18→17:04)
[2021-01-27] MEDS: FORMOTEROL FUMARATE 20 MCG/2 ML NEBU INHALATION SCH ×2 (08:36→20:40)
[2021-01-27] MEDS: BUDESONIDE 1 MG/2 ML NEBU INHALATION SCH ×2 (08:36→20:40)
[2021-01-27 12:01] LABS: Basophils # (A) 0.1 k/uL (0-0.2); Basophils % (A) 1 %; Eosinophils # (A) 0.1 k/uL (0-0.7); Eosinophils % (A) 1 %; HCT 48.8 % (34.0-46.0); HGB 15.1 gm/dL (11.4-16.0); Hypochromasia Slight; Lymphocytes % (A) 11 %; MCH 31.4 pg (25.0-35.0); MCV 101.4 fL (80.0-100.0); Macrocytosis Slight; Mean Platelet Volume 8.3; Monocytes # (A) 0.5 k/uL (0-1.0); Monocytes % (A) 5 %; Neutrophils # (A) 8.1 k/uL (1.3-7.7); Neutrophils % (A) 83 %; Platelet Count 125 k/uL (150-450); RBC 4.81 m/uL (3.80-5.40); RDW 13.4 % (11.5-15.5); WBC 9.7 k/uL (3.8-10.6)
[2021-01-27 12:14] LABS: Sodium 141 mmol/L (137-145)
[2021-01-27 12:17] LABS: African American GFR (CKD) 85 (>60 ml/min/1.73 sqM); Anion Gap 7 mmol/L; Blood Urea Nitrogen 62 mg/dL (7-17); Calcium 9.6 mg/dL (8.4-10.2); Carbon Dioxide 39 mmol/L (22-30); Chloride 95 mmol/L (98-107); Glucose 214 mg/dL (74-99); Non-African American GFR(CKD) 74 (>60 ml/min/1.73 sqM); Potassium 4.7 mmol/L (3.5-5.1)
[2021-01-27 15:00] VITALS: BMI 43.9
[2021-01-27] MEDS: MELATONIN 3 MG TABLET PO SCH (18:04)
[2021-01-27] MEDS: PRAVASTATIN SODIUM 80 MG TAB PO SCH (18:04)
[2021-01-28] MEDS: IPRATROPIUM-ALBUTEROL 3 ML NEB INHALATION SCH ×6 (04:23→22:57)
[2021-01-28] MEDS: carvediloL 6.25 MG TAB PO SCH ×2 (06:13→18:26)
[2021-01-28] MEDS: LEVOTHYROXINE 125 MCG TAB PO SCH (06:13)
[2021-01-28] MEDS: predniSONE 10 MG TAB PO SCH (08:32)
[2021-01-28] MEDS: guaiFENesin 600 MG TABLET.ER PO SCH ×4 (08:32→20:03)
[2021-01-28] MEDS: RIVAROXABAN 15 MG TAB PO SCH ×2 (08:33→18:25)
[2021-01-28] MEDS: FUROSEMIDE 40 MG TAB PO SCH (08:33)
[2021-01-28] MEDS: LORATADINE 10 MG TAB PO SCH ×2 (08:33→20:03)
[2021-01-28] MEDS: BUDESONIDE 1 MG/2 ML NEBU INHALATION SCH ×2 (09:10→18:55)
[2021-01-28] MEDS: FORMOTEROL FUMARATE 20 MCG/2 ML NEBU INHALATION SCH ×2 (09:10→18:55)
[2021-01-28] MEDS: MELATONIN 3 MG TABLET PO SCH (18:26)
[2021-01-28] MEDS: PRAVASTATIN SODIUM 80 MG TAB PO SCH (18:26)
[2021-01-29] MEDS: IPRATROPIUM-ALBUTEROL 3 ML NEB INHALATION SCH ×5 (04:11→18:57)
[2021-01-29] MEDS: LEVOTHYROXINE 125 MCG TAB PO SCH (04:48)
[2021-01-29] MEDS: carvediloL 6.25 MG TAB PO SCH ×2 (04:48→20:35)
--- NOTE | 2021-01-29 08:29 | XR ---
EXAMINATION TYPE: XR chest 1V DATE OF EXAM: 01/29/2021 COMPARISON: Chest x-ray 01/26/2021 HISTORY: Shortness of breath TECHNIQUE: Single frontal view of the chest is obtained. FINDINGS: Patient is rotated. Right hemidiaphragm remains elevated. Cardiac mediastinal silhouette i s likely stable. Patchy basilar density persists, no evident pneumothorax. The aorta is dense. IMPRESSION: Expiratory rotated exam. Probable basilar atelectasis, correlate to exclude pneumonia
[2021-01-29] MEDS: LORATADINE 10 MG TAB PO SCH ×2 (09:17→20:35)
[2021-01-29] MEDS: guaiFENesin 600 MG TABLET.ER PO SCH ×4 (09:17→20:35)
[2021-01-29] MEDS: FUROSEMIDE 40 MG TAB PO SCH (09:17)
[2021-01-29] MEDS: predniSONE 10 MG TAB PO SCH (09:17)
[2021-01-29] MEDS: RIVAROXABAN 15 MG TAB PO SCH ×2 (09:18→17:40)
[2021-01-29] MEDS: FORMOTEROL FUMARATE 20 MCG/2 ML NEBU INHALATION SCH ×2 (09:20→18:57)
[2021-01-29] MEDS: BUDESONIDE 1 MG/2 ML NEBU INHALATION SCH ×2 (09:20→18:57)
[2021-01-29 10:24] LABS: African American GFR (CKD) 90.3 (60.0-200.0); Calcium 9.2 mg/dL (8.7-10.3); Carbon Dioxide >40.0 mmol/L (21.6-31.8); Chloride 94 mmol/L (96-109); Glucose 108 mg/dL (70-110); Non-African American GFR(CKD) 77.9 (60.0-200.0); Potassium 4.9 mmol/L (3.5-5.5); Sodium 142 mmol/L (135-145)
[2021-01-29 12:52] LABS: Basophils # (A) 0.02 X 10*3/uL (0.00-0.10); Basophils % (A) 0.2 %; Eosinophils # (A) 0.15 X 10*3/uL (0.04-0.35); Eosinophils % (A) 1.4 %; HCT 47.5 % (37.2-46.3); HGB 14.6 g/dL (12.0-15.0); Lymphocytes # (A) 2.73 X 10*3/uL (0.90-5.00); MCH 30.8 pg (27.0-32.0); MCHC 30.7 g/dL (32.0-37.0); MCV 100.2 fL (80.0-97.0); Monocytes # (A) 0.96 X 10*3/uL (0.20-1.00); Monocytes % (A) 8.8 %; Neutrophils # (A) 6.95 X 10*3/uL (1.80-7.70); Neutrophils % (A) 63.7 %; Platelet Count 124 X 10*3/uL (140-440); RBC 4.74 X 10*6/uL (4.10-5.20); RDW 13.5 % (11.5-14.5); WBC 10.91 X 10*3/uL (4.50-10.00)
[2021-01-29] MEDS: PRAVASTATIN SODIUM 80 MG TAB PO SCH (20:35)
[2021-01-29] MEDS: MELATONIN 3 MG TABLET PO SCH (20:35)
[2021-01-30] MEDS: IPRATROPIUM-ALBUTEROL 3 ML NEB INHALATION SCH ×4 (00:53→13:27)
[2021-01-30 01:13] VITALS: RESP 16
[2021-01-30] MEDS: carvediloL 6.25 MG TAB PO SCH (05:14)
[2021-01-30] MEDS: LEVOTHYROXINE 125 MCG TAB PO SCH (05:14)
[2021-01-30] MEDS: FUROSEMIDE 40 MG TAB PO SCH (08:23)
[2021-01-30] MEDS: RIVAROXABAN 15 MG TAB PO SCH (08:23)
[2021-01-30] MEDS: predniSONE 10 MG TAB PO SCH (08:23)
[2021-01-30] MEDS: guaiFENesin 600 MG TABLET.ER PO SCH ×2 (08:24→13:16)
[2021-01-30] MEDS: LORATADINE 10 MG TAB PO SCH (08:24)
[2021-01-30] MEDS: FORMOTEROL FUMARATE 20 MCG/2 ML NEBU INHALATION SCH (09:04)
[2021-01-30] MEDS: BUDESONIDE 1 MG/2 ML NEBU INHALATION SCH (09:04)
--- NOTE | 2021-01-30 10:49 | P.PN ---
Subjective Progress Note Date: 01/27/21 Principal diagnosis: Acute PE Hypoxic respiratory failure This is a pleasant 85-year-old patient follows with visiting physicians. Chronic stable medical conditions include hypothyroid, hypertension, hyperlipidemia, osteoarthritis. Does use a walker to baseline. Lives by hers elf. Patient noticed that she became short of breath yesterday. Slight cough. No fever no chills. Has had some edema also. Patient has good chronic urinary incontinence. Not very active. No chest pain. No fever no chills. Computed tomography scan in the ER suggestive of pulmonary embolism. Admitted with diagnosis of pneumonia, acute PE. Started on IV ceftriaxone, xarelto. January 21 Overnight patient became more short of breath. Some congestion. Pulmonary consulted this morning. Placed on BiPAP. Chest x-ray showing pneumonia. Congested cough. Clear phlegm. Lasix added by pulmonary January 22: Short of breath. On nasal cannula. Congested chest. Tired January 23: Reclining in bed. A bit less congestion. Breathing a bit better. Oral intake much improved. January 24: Sitting up reclining in bed. Eating about 50%. Shortness of breath. Tired. Not wheezing much. Discussed with Dr. Drkae. Stop IV Lasix. Patient is getting alkalotic. Discussed with nurse to instruct the patient about incentive spirometry. Antibiotics discontinued by pulmonary. January 25: Reclining in bed. Tired. Eating about 50%. Feeling very dry. Dry mouth. January 26: Reclining in bed. Eating some. Short of breath. Some congested cough. Discussed with Dr. Drake from pulmonary. Prognosis guarded. Nothing more to be offered. I talked to the patient about guarded prognosis. Made DO NOT RESUSCITATE. Also spoke to patient's daughter Agustina Jacobo, as per patient wishes. She will inform other siblings about poor prognosis 01/27/2021 Patient is currently lying in the bed. Awake alert and oriented 3. On oxygen at 6 L by nasal cannula. Patient has been afebrile. Still lethargic. No fever no chills. Patient is being continued on bronchodilators and anticoagulation changed to xarelto 15 twice a day. Patient is being continued on prednisone 30 mg daily. Continue to titrate down oxygen. Current medications reviewed. Objective - Vital Signs Vital signs: Vital Signs Temp 97.5 F L 01/27/21 14:00 Pulse 78 08/23/21 16:55 Resp 22 01/27/21 14:00 BP 137/84 01/27/21 14:00 Pulse Ox 93 L 01/27/21 16:57 Intake & Output 01/26/21 01/27/21 01/27/21 18:59 06:59 18:59 Intake Total 1080 Output Total 5400 1750 900 Balance -4320 -1750 -900 Weight 108.862 kg Intake: Oral 1080 Output: Urine 5400 1750 900 Other: Voiding Method Diaper Diaper Diaper Incontinent Incontinent Incontinent External Catheter External Catheter External Catheter # Bowel Movements 1 - Exam Physical examination: GENERAL: Reclining in bed, tired, congested cough EYES: Pupils equal. Conjunctiva normal.. NECK: JVD not raised; masses not palpable. HEART: First and second heart sounds are normal; some edema. LUNGS: Respiratory rate increased; decreased breath sounds. ABDOMEN: Soft, nontender, liver spleen not palpable, no masses palpable. PSYCH: Alert and oriented x3; mood and affect anxious MUSCULAR skeletal: Evidence of OA. INVESTIGATIONS, reviewed in the clinical context: January 24: Potassium 4.8 BUN 48 creatinine 0.59 bicarb 37. Pro-calcitonin 0.06 January 22: WBC 5.3 hemoglobin 14.5 potassium 4.5 BUN 28 creatinine 0.76 proBNP 478 Influenza type A diabetes both not detected. Coronavirus [PCR]: Not detected January 21: ABG [pH 7.38, pCO2 66, pO2 55. Chest x-ray film personally reviewed by me: Infiltrate Pro-calcitonin 0.14 2-D echocardiogram: Moderate concentric LVH. EF 65-70% EKG tracing personally reviewed by me-normal sinus rhythm Chest x-ray film personally reviewed by me-infiltrate/pulmonary edema, cardiomegaly WBC 6.3 hemoglobin 15.2 platelets 119 d-dimer 1.86 potassium 4.3 BUN 31 at 0.83 ProBNP 161 Troponin I is 0.015 - Labs CBC & Chem 7: 01/29/21 06:16 01/29/21 06:16 Labs: Abnormal Lab Results - Last 24 Hours (Table) 01/27/21 01/27/21 Range/Units 11:44 11:44 Hct 48.8 H (34.0-46.0) % MCV 101.4 H (80.0-100.0) fL Plt Count 125 L (150-450) k/uL Neutrophils # 8.1 H (1.3-7.7) k/uL Chloride 95 L (98-107) mmol/L Carbon Dioxide 39 H (22-30) mmol/L BUN 62 H (7-17) mg/dL Glucose 214 H (74-99) mg/dL Assessment and Plan Assessment: Assessment and plan: - pneumonia. Suspect gram-negative organism.: IV ceftriaxone 1 g every 12. Antibiotics discontinued by pulmonary. Procalcitonin 0.06 -Obesity hypoventilation syndrome component -Acute COPD exacerbation in a nonsmoker: Slow to respond DuoNeb every 4, inhaled and IV steroids-changed to by mouth steroids, inhaled long-acting beta agonist -Acute hypoxic and hypercapnic respiratory failure, multifactorial BiPAP. Currently on 5 L nasal cannula. -Acute pulmonary embolism xarelto 15 mg every 12 -Morbid obesity BMI 43.9 Weight loss measures -Chronic gait dysfunction Uses a walker to baseline -Hyperlipidemia Pravastatin 80 mg daily at bedtime -Chronic insomnia, from multiple problems Melatonin 3 mg daily at bedtime -Hypothyroid Synthroid 125 g daily -Essential hypertension Coreg 6.25 mg twice a day -Primary osteoarthritis multiple joints bilateral Use pain medications as needed -Doubt CHF -Metabolic alkalosis from IV Lasix and steroids DC IV Lasix Prognosis guarded. [place] Ativan available today so patient will be discharged tomorrow back to her AFC. Hospice can be opened air once the patient decides about the same. Had a long the discussion with the patient the bedside. Patient takes her own decisions. Understands the guarded prognosis. Has agreeable to proceed with no CODE STATUS. Also understands the need for hospice if she she deteriorates. She like to go back to her AFC home. Hospice can be arranged through her visiting physicians. She'll require oxygen to go back. This was discussed. Patient's daughter was informed. Time with Patient: Greater than 30
--- NOTE | 2021-01-30 10:50 | P.PN ---
Subjective Progress Note Date: 01/28/21 Principal diagnosis: Acute PE Hypoxic respiratory failure This is a pleasant 85-year-old patient follows with visiting physicians. Chronic stable medical conditions include hypothyroid, hypertension, hyperlipidemia, osteoarthritis. Does use a walker to baseline. Lives by hers elf. Patient noticed that she became short of breath yesterday. Slight cough. No fever no chills. Has had some edema also. Patient has good chronic urinary incontinence. Not very active. No chest pain. No fever no chills. Computed tomography scan in the ER suggestive of pulmonary embolism. Admitted with diagnosis of pneumonia, acute PE. Started on IV ceftriaxone, xarelto. January 21 Overnight patient became more short of breath. Some congestion. Pulmonary consulted this morning. Placed on BiPAP. Chest x-ray showing pneumonia. Congested cough. Clear phlegm. Lasix added by pulmonary January 22: Short of breath. On nasal cannula. Congested chest. Tired January 23: Reclining in bed. A bit less congestion. Breathing a bit better. Oral intake much improved. January 24: Sitting up reclining in bed. Eating about 50%. Shortness of breath. Tired. Not wheezing much. Discussed with Dr. Drake. Stop IV Lasix. Patient is getting alkalotic. Discussed with nurse to instruct the patient about incentive spirometry. Antibiotics discontinued by pulmonary. January 25: Reclining in bed. Tired. Eating about 50%. Feeling very dry. Dry mouth. January 26: Reclining in bed. Eating some. Short of breath. Some congested cough. Discussed with Dr. Drake from pulmonary. Prognosis guarded. Nothing more to be offered. I talked to the patient about guarded prognosis. Made DO NOT RESUSCITATE. Also spoke to patient's daughter Agustina Jacobo, as per patient wishes. She will inform other siblings about poor prognosis 01/27/2021 Patient is currently lying in the bed. Awake alert and oriented 3. On oxygen at 6 L by nasal cannula. Patient has been afebrile. Still lethargic. No fever no chills. Patient is being continued on bronchodilators and anticoagulation changed to xarelto 15 twice a day. Patient is being continued on prednisone 30 mg daily. Continue to titrate down oxygen. 01/28/2021 Patient is currently resting in the bed. Still requiring high flow oxygen at 6 L via nasal cannula. Patient is awake alert and oriented 3. Excellent currently being controlled on prednisone 30 mg daily and also anticoagulate to xarelto. Patient has been afebrile. Tolerating oral diet slowly. Continues to be short of breath. No nausea vomiting or diarrhea. Stool softeners as needed for constipation. Current medications reviewed. Objective - Vital Signs Vital signs: Vital Signs Temp 97.6 F 01/28/21 19:20 Pulse 73 01/28/21 19:20 Resp 18 01/28/21 19:20 BP 144/80 01/28/21 19:20 Pulse Ox 92 L 01/28/21 19:20 Intake & Output 01/28/21 01/28/21 01/29/21 06:59 18:59 06:59 Intake Total 1080 Output Total 500 1200 Balance -500 -1200 1080 Intake: Oral 1080 Output: Urine 500 1200 Other: Voiding Method Diaper External Catheter Incontinent External Catheter - Exam Physical examination: GENERAL: Reclining in bed, tired, congested cough EYES: Pupils equal. Conjunctiva normal.. NECK: JVD not raised; masses not palpable. HEART: First and second heart sounds are normal; some edema. LUNGS: Respiratory rate increased; decreased breath sounds. ABDOMEN: Soft, nontender, liver spleen not palpable, no masses palpable. PSYCH: Alert and oriented x3; mood and affect anxious MUSCULAR skeletal: Evidence of OA. INVESTIGATIONS, reviewed in the clinical context: January 24: Potassium 4.8 BUN 48 creatinine 0.59 bicarb 37. Pro-calcitonin 0.06 January 22: WBC 5.3 hemoglobin 14.5 potassium 4.5 BUN 28 creatinine 0.76 proBNP 478 Influenza type A diabetes both not detected. Coronavirus [PCR]: Not detected January 21: ABG [pH 7.38, pCO2 66, pO2 55. Chest x-ray film personally reviewed by me: Infiltrate Pro-calcitonin 0.14 2-D echocardiogram: Moderate concentric LVH. EF 65-70% EKG tracing personally reviewed by me-normal sinus rhythm Chest x-ray film personally reviewed by me-infiltrate/pulmonary edema, cardiomegaly WBC 6.3 hemoglobin 15.2 platelets 119 d-dimer 1.86 potassium 4.3 BUN 31 at 0.83 ProBNP 161 Troponin I is 0.015 - Labs CBC & Chem 7: 01/29/21 06:16 01/29/21 06:16 Assessment and Plan Assessment: Assessment and plan: - pneumonia. Suspect gram-negative organism.: IV ceftriaxone 1 g every 12. Antibiotics discontinued by pulmonary. Procalcitonin 0.06 -Obesity hypoventilation syndrome component -Acute COPD exacerbation in a nonsmoker: Slow to respond DuoNeb every 4, inhaled and IV steroids-changed to by mouth steroids, inhaled long-acting beta agonist -Acute hypoxic and hypercapnic respiratory failure, multifactorial BiPAP. Currently on 5 L nasal cannula. -Acute pulmonary embolism xarelto 15 mg every 12 -Morbid obesity BMI 43.9 Weight loss measures -Chronic gait dysfunction Uses a walker to baseline -Hyperlipidemia Pravastatin 80 mg daily at bedtime -Chronic insomnia, from multiple problems Melatonin 3 mg daily at bedtime -Hypothyroid Synthroid 125 g daily -Essential hypertension Coreg 6.25 mg twice a day -Primary osteoarthritis multiple joints bilateral Use pain medications as needed -Doubt CHF -Metabolic alkalosis from IV Lasix and steroids DC IV Lasix Prognosis guarded. [facility] Ativan available today so patient will be discharged tomorrow back to her AFC. Hospice can be opened air once the patient decides about the same. Had a long the discussion with the patient the bedside. Patient takes her own decisions. Understands the guarded prognosis. Has agreeable to proceed with no CODE STATUS. Also understands the need for hospice if she she deteriorates. She like to go back to her AFC home. Hospice can be arranged through her visiting physicians. She'll require oxygen to go back. This was discussed. Patient's daughter was informed. Time with Patient: Greater than 30
--- NOTE | 2021-01-30 10:51 | P.PN ---
Subjective Progress Note Date: 01/29/21 Principal diagnosis: Acute PE Hypoxic respiratory failure This is a pleasant 85-year-old patient follows with visiting physicians. Chronic stable medical conditions include hypothyroid, hypertension, hyperlipidemia, osteoarthritis. Does use a walker to baseline. Lives by hers elf. Patient noticed that she became short of breath yesterday. Slight cough. No fever no chills. Has had some edema also. Patient has good chronic urinary incontinence. Not very active. No chest pain. No fever no chills. Computed tomography scan in the ER suggestive of pulmonary embolism. Admitted with diagnosis of pneumonia, acute PE. Started on IV ceftriaxone, xarelto. January 21 Overnight patient became more short of breath. Some congestion. Pulmonary consulted this morning. Placed on BiPAP. Chest x-ray showing pneumonia. Congested cough. Clear phlegm. Lasix added by pulmonary January 22: Short of breath. On nasal cannula. Congested chest. Tired January 23: Reclining in bed. A bit less congestion. Breathing a bit better. Oral intake much improved. January 24: Sitting up reclining in bed. Eating about 50%. Shortness of breath. Tired. Not wheezing much. Discussed with Dr. Drake. Stop IV Lasix. Patient is getting alkalotic. Discussed with nurse to instruct the patient about incentive spirometry. Antibiotics discontinued by pulmonary. January 25: Reclining in bed. Tired. Eating about 50%. Feeling very dry. Dry mouth. January 26: Reclining in bed. Eating some. Short of breath. Some congested cough. Discussed with Dr. Drake from pulmonary. Prognosis guarded. Nothing more to be offered. I talked to the patient about guarded prognosis. Made DO NOT RESUSCITATE. Also spoke to patient's daughter Agustina Jacobo, as per patient wishes. She will inform other siblings about poor prognosis 01/27/2021 Patient is currently lying in the bed. Awake alert and oriented 3. On oxygen at 6 L by nasal cannula. Patient has been afebrile. Still lethargic. No fever no chills. Patient is being continued on bronchodilators and anticoagulation changed to xarelto 15 twice a day. Patient is being continued on prednisone 30 mg daily. Continue to titrate down oxygen. 01/28/2021 Patient is currently resting in the bed. Still requiring high flow oxygen at 6 L via nasal cannula. Patient is awake alert and oriented 3. Excellent currently being controlled on prednisone 30 mg daily and also anticoagulate to xarelto. Patient has been afebrile. Tolerating oral diet slowly. Continues to be short of breath. No nausea vomiting or diarrhea. Stool softeners as needed for constipation. 01/29/2021 Patient is lying in the bed awake alert oriented 3. Still requiring 6 L via nasal cannula. No complains of worsening shortness of breath. No headache or dizziness or lightheadedness. Patient was encouraged with incentive spirometry. Afebrile. Continue with xarelto and titrate down oxygen to 4 L Possible discharge to rehab. Currently code status DO NOT RESUSCITATE/DO NOT INTUBATE. Laboratory data showed WBC 10.9, hemoglobin 14.6, platelets 124 Sodium 142 potassium 4.9 chloride 94 bicarb is greater than 40 BUN 49 and creatinine 0.7 Current medications reviewed. Objective - Vital Signs Vital signs: Vital Signs Temp 98.4 F 01/29/21 15:00 Pulse 70 01/29/21 15:59 Resp 16 01/29/21 15:00 BP 152/83 01/29/21 15:00 Pulse Ox 90 L 01/29/21 15:00 Intake & Output 01/28/21 01/29/21 01/29/21 18:59 06:59 18:59 Intake Total 1080 Output Total 1200 850 800 Balance -1200 230 -800 Intake: Oral 1080 Output: Urine 1200 850 800 Other: Voiding Method External Catheter External Catheter External Catheter - Exam Physical examination: GENERAL: Reclining in bed, tired, congested cough EYES: Pupils equal. Conjunctiva normal.. NECK: JVD not raised; masses not palpable. HEART: First and second heart sounds are normal; some edema. LUNGS: Respiratory rate increased; decreased breath sounds. ABDOMEN: Soft, nontender, liver spleen not palpable, no masses palpable. PSYCH: Alert and oriented x3; mood and affect anxious MUSCULAR skeletal: Evidence of OA. INVESTIGATIONS, reviewed in the clinical context: January 24: Potassium 4.8 BUN 48 creatinine 0.59 bicarb 37. Pro-calcitonin 0.06 January 22: WBC 5.3 hemoglobin 14.5 potassium 4.5 BUN 28 creatinine 0.76 proBNP 478 Influenza type A diabetes both not detected. Coronavirus [PCR]: Not detected January 21: ABG [pH 7.38, pCO2 66, pO2 55. Chest x-ray film personally reviewed by me: Infiltrate Pro-calcitonin 0.14 2-D echocardiogram: Moderate concentric LVH. EF 65-70% EKG tracing personally reviewed by me-normal sinus rhythm Chest x-ray film personally reviewed by me-infiltrate/pulmonary edema, cardiomegaly WBC 6.3 hemoglobin 15.2 platelets 119 d-dimer 1.86 potassium 4.3 BUN 31 at 0.83 ProBNP 161 Troponin I is 0.015 - Labs CBC & Chem 7: 01/29/21 06:16 01/29/21 06:16 Labs: Abnormal Lab Results - Last 24 Hours (Table) 01/29/21 01/29/21 Range/Units 06:16 06:16 WBC 10.91 H (4.50-10.00) X 10*3/uL Hct 47.5 H (37.2-46.3) % MCV 100.2 H (80.0-97.0) fL MCHC 30.7 L (32.0-37.0) g/dL Plt Count 124 L (140-440) X 10*3/uL Immature Gran # 0.10 H (0.00-0.04) X 10*3/uL Chloride 94 L (96-109) mmol/L Carbon Dioxide >40.0 H* (21.6-31.8) mmol/L BUN 49.0 H (9.0-27.0) mg/dL BUN/Creatinine Ratio 70.00 H (12.00-20.00) Ratio Assessment and Plan Assessment: Assessment and plan: - pneumonia. Suspect gram-negative organism.: IV ceftriaxone 1 g every 12. Antibiotics discontinued by pulmonary. Procalcitonin 0.06 -Obesity hypoventilation syndrome component -Acute COPD exacerbation in a nonsmoker: Slow to respond DuoNeb every 4, inhaled and IV steroids-changed to by mouth steroids, inhaled long-acting beta agonist -Acute hypoxic and hypercapnic respiratory failure, multifactorial BiPAP. Currently on 5 L nasal cannula. -Acute pulmonary embolism xarelto 15 mg every 12 -Morbid obesity BMI 43.9 Weight loss measures -Chronic gait dysfunction Uses a walker to baseline -Hyperlipidemia Pravastatin 80 mg daily at bedtime -Chronic insomnia, from multiple problems Melatonin 3 mg daily at bedtime -Hypothyroid Synthroid 125 g daily -Essential hypertension Coreg 6.25 mg twice a day -Primary osteoarthritis multiple joints bilateral Use pain medications as needed -Doubt CHF -Metabolic alkalosis from IV Lasix and steroids DC IV Lasix Prognosis guarded. [place] Ativan available today so patient will be discharged tomorrow back to her AFC. Hospice can be opened air once the patient decides about the same. Had a long the discussion with the patient the bedside. Patient takes her own decisions. Understands the guarded prognosis. Has agreeable to proceed with no CODE STATUS. Also understands the need for hospice if she she deteriorates. She like to go back to her AFC home. Hospice can be arranged through her [facility] physicians. She'll require oxygen to go back. This was discussed. Patient's daughter was informed. Time with Patient: Greater than 30
--- NOTE | 2021-01-30 10:56 | P.DS ---
Providers Date of admission: 01/20/21 12:23 Expected date of discharge: 01/30/21 Attending physician: Jerrod Mahan Consults: 01/21/21 10:03 Consult Physician Urgent Consulting Provider: Meri Drake Consult Reason/Comments: pneumonia, PE, covid? Do you want consulting provider notified?: Already Contacted Primary care physician: Chance Robertson MD Hospital Course: 01/30/2021 Patient is currently lying in the bed. Awake alert oriented 3. Oxygen requirement titrate down to 5 L nasal cannula today. Patient will be continued on prednisone tapering course.. Continued with xarelto 15 mg twice daily for 3 weeks. Followed by xarelto 20 mg daily for acute PE. Started on 01/20/2021. Blood pressure is stable. Discharge medication reconciliation was done. Continue with DuoNeb's and encourage incentive spirometry. Patient is being discharged to rehab today. Patient Condition at Discharge: Stable Plan - Discharge Summary Discharge Rx Participant: No New Discharge Prescriptions: New Ipratropium-Albuterol Nebulize [Duoneb 0.5 mg-3 mg/3 ml Soln] 3 ml INHALATION QID #120 ml predniSONE 10 mg PO DAILY #30 tab Budesonide/Formoterol Fumarate [Symbicort 160-4.5 Mcg Inhaler] 1 puff INHALATION BID #1 gm Rivaroxaban [Xarelto Starter Pack] 0 mg PO DIRECTED 30 Days #1 pack Loratadine [Claritin] 5 mg PO Q12HR #60 tab Continue Albuterol Sulfate [Albuterol Sulfate Hfa] 1 puff INHALATION Q4-6H PRN 30 Days #1 inhaler PRN Reason: Shortness Of Breath Or Wheezing Furosemide [Lasix] 20 mg PO DAILY@0500 Acetaminophen Tab [Tylenol] 1,000 mg PO Q4H PRN PRN Reason: Pain Levothyroxine Sodium [Synthroid] 125 mcg PO DAILY@0500 Spironolactone [Aldactone] 25 mg PO BID@0500,1900 Pravastatin Sodium 80 mg PO HS@1900 Melatonin 3 mg PO HS@1900 Carvedilol [Coreg] 6.25 mg PO BID@0500,1900 Furosemide [Lasix] 40 mg PO DAILY@0500 Discharge Medication List Albuterol Sulfate [Albuterol Sulfate Hfa] 1 puff INHALATION Q4-6H PRN 30 Days #1 inhaler 11/05/19 [Rx] Acetaminophen Tab [Tylenol] 1,000 mg PO Q4H PRN 10/05/20 [History] Carvedilol [Coreg] 6.25 mg PO BID@050,189910/05/20 [History] Furosemide [Lasix] 20 mg PO DAILY@49910/05/20 [History] Melatonin 3 mg PO HS@189910/05/20 [History] Pravastatin Sodium 80 mg PO HS@189910/05/20 [History] Spironolactone [Aldactone] 25 mg PO BID@050,189910/05/20 [History] Furosemide [Lasix] 40 mg PO DAILY@49901/20/21 [History] Levothyroxine Sodium [Synthroid] 125 mcg PO DAILY@49901/20/21 [History] Budesonide/Formoterol Fumarate [Symbicort 160-4.5 Mcg Inhaler] 1 puff INHALATION BID #1 gm 01/26/21 [Rx] Ipratropium-Albuterol Nebulize [Duoneb 0.5 mg-3 mg/3 ml Soln] 3 ml INHALATION QID #120 ml 01/26/21 [Rx] Loratadine [Claritin] 5 mg PO Q12HR #60 tab 01/26/21 [Rx] Rivaroxaban [Xarelto Starter Pack] 0 mg PO DIRECTED 30 Days #1 pack 01/26/21 [Rx] predniSONE 10 mg PO DAILY #30 tab 01/26/21 [Rx] Follow up Appointment(s)/Referral(s): Chance Robertson MD [Primary Care Provider] - 1-2 days Noa Blunt [NON-STAFF] - As Needed Care,Argenis Gilmore [NON-STAFF] - As Needed Activity/Diet/Wound Care/Special Instructions: Oxygen at 5LPM via nasal cannula hospice thru visiting physicians Discharge Disposition: TRANSFER TO SNF/ECF
[2021-01-30 11:15] LABS: Basophils # (A) 0.01 X 10*3/uL (0.00-0.10); Basophils % (A) 0.1 %; Eosinophils # (A) 0.16 X 10*3/uL (0.04-0.35); Eosinophils % (A) 1.5 %; HCT 47.9 % (37.2-46.3); HGB 14.5 g/dL (12.0-15.0); Lymphocytes # (A) 2.46 X 10*3/uL (0.90-5.00); MCH 30.4 pg (27.0-32.0); MCHC 30.3 g/dL (32.0-37.0); MCV 100.4 fL (80.0-97.0); Mean Platelet Volume 12.4 fL (9.5-12.2); Monocytes # (A) 0.89 X 10*3/uL (0.20-1.00); Monocytes % (A) 8.3 %; Neutrophils # (A) 7.07 X 10*3/uL (1.80-7.70); Neutrophils % (A) 66.3 %; Platelet Count 115 X 10*3/uL (140-440); RBC 4.77 X 10*6/uL (4.10-5.20); RDW 13.4 % (11.5-14.5); WBC 10.68 X 10*3/uL (4.50-10.00)
[2021-01-30 13:50] LABS: African American GFR (CKD) 90.3 (60.0-200.0); Anion Gap 8.3 mmol/L (4.00-12.00); BUN/Creat Ratio 71.43 Ratio (12.00-20.00); Calcium 9.2 mg/dL (8.7-10.3); Carbon Dioxide 39.7 mmol/L (21.6-31.8); Non-African American GFR(CKD) 77.9 (60.0-200.0); Potassium 4.8 mmol/L (3.5-5.5)
[2021-01-30 14:21] VITALS: BP 152/69; PULSE 62; TEMP 97.8
== END 2021-01-30 14:30 | DRG 177 ==
LOC: EC 10:02 → 5NMEDONC 12:23 → 4SSUR 20:40
PROVIDERS: ADMIT Hospitalist; ATTEND Hospitalist
PROC: 5A09357 Assistance with Respiratory Ventilation, Less than 24 Consecutive Hours, Continuous Positive Airway Pressure (ICD-10-PCS; principal; 2021-01-21)
PROC: 5A0935A Assistance with Respiratory Ventilation, Less than 24 Consecutive Hours, High Flow/Velocity Cannula (ICD-10-PCS; 2021-01-22)
DX: J15.6 Pneumonia due to other Gram-negative bacteria (principal); I26.99 Other pulmonary embolism without acute cor pulmonale; J96.01 Acute respiratory failure with hypoxia; J96.02 Acute respiratory failure with hypercapnia; E66.2 Morbid (severe) obesity with alveolar hypoventilation; Z68.41 Body mass index [BMI] 40.0-44.9, adult; E87.3 Alkalosis; J44.1 Chronic obstructive pulmonary disease with (acute) exacerbation; J44.0 Chronic obstructive pulmonary disease with (acute) lower respiratory infection; J98.11 Atelectasis; Z20.822 Contact with and (suspected) exposure to COVID-19; E03.9 Hypothyroidism, unspecified; E78.5 Hyperlipidemia, unspecified; I10 Essential (primary) hypertension; R32 Unspecified urinary incontinence; R26.9 Unspecified abnormalities of gait and mobility; F51.04 Psychophysiologic insomnia; I25.2 Old myocardial infarction; Z96.651 Presence of right artificial knee joint; Z79.890 Hormone replacement therapy; I25.10 Atherosclerotic heart disease of native coronary artery without angina pectoris; M15.9 Polyosteoarthritis, unspecified; Z66 Do not resuscitate; Z79.01 Long term (current) use of anticoagulants; Z79.899 Other long term (current) drug therapy; Z87.440 Personal history of urinary (tract) infections
CPT/HCPCS: 36415; 36600; 71045; 71046; 71275; 80048; 80053; 81001; 82465; 82550; 82553; 82805; 83036; 83605; 83880; 84145; 84484; 85025; 85379; 85610; 85730; 87502; 87635; 93005; 93306; 93970; 94640; 94660; 94667; 94668; 94760; 99285

== ENCOUNTER 2021-05-04 11:12 | Emergency (ER) | payer MEDICARE, OTHER ==
[2021-05-04 11:58] VITALS: RESP 18
[2021-05-04 12:12] LABS: Basophils % (A) 0 %; Eosinophils # (A) 0.4 k/uL (0-0.7); Eosinophils % (A) 6 %; HGB 13.8 gm/dL (11.4-16.0); Lymphocytes # (A) 1.9 k/uL (1.0-4.8); Lymphocytes % (A) 28 %; MCH 31.5 pg (25.0-35.0); MCHC 32.9 g/dL (31.0-37.0); MCV 95.8 fL (80.0-100.0); Mean Platelet Volume 8.7; Monocytes # (A) 0.5 k/uL (0-1.0); Monocytes % (A) 8 %; Neutrophils # (A) 3.7 k/uL (1.3-7.7); Neutrophils % (A) 56 %; Platelet Count 136 k/uL (150-450); RBC 4.38 m/uL (3.80-5.40); RDW 14.1 % (11.5-15.5); WBC 6.7 k/uL (3.8-10.6)
[2021-05-04 12:26] LABS: INR 1.3 (<1.2); Partial Thromboplastin Time 27.5 sec (22.0-30.0); Prothrombin Time 13.3 sec (9.0-12.0)
[2021-05-04 12:28] LABS: Albumin 3.7 g/dL (3.5-5.0); Calcium 10.1 mg/dL (8.4-10.2); Potassium 5.4 mmol/L (3.5-5.1); Total Bilirubin 0.8 mg/dL (0.2-1.3); Total Protein 7.1 g/dL (6.3-8.2)
[2021-05-04 12:56] LABS: Appearance,Urine Clear (Clear); Bilirubin,Urine Negative (Negative); Blood,Urine Large (Negative); Color,Urine Red; Glucose,Urine (UA) Negative (Negative); Ketones,Urine Negative (Negative); Leukocyte Esterase,Urine Moderate (Negative); Mucus,Urine Rare /hpf; Nitrite,Urine Negative (Negative); Protein,Urine 1+ (Negative); RBC,Urine >182 /hpf (0-5); Specific Gravity,Urine 1.018 (1.001-1.035); Squamous Epithelial Cell,Urine 3 /hpf (0-4); Urobilinogen,Urine <2.0 mg/dL (<2.0); WBC,Urine 21 /hpf (0-5)
--- NOTE | 2021-05-04 13:03 | XR ---
EXAMINATION TYPE: XR chest 1V portable DATE OF EXAM: 05/04/2021 COMPARISON: 01/29/2021 HISTORY: 86 years Female. STUDY INDICATION GIVEN: hypoxia . TECHNIQUE: AP chest radiograph IMPRESSION: Bibasilar right greater than left airspace opacities concerning for multifocal pneumonia and/or atele ctasis. Small bilateral right greater than left effusion.Mild interstitial edema.Mild central vascular conges tion. Moderate cardiomegaly. No significant change in appearance compared to prior. Stable right hemidiaphragm eventration. No pneumothorax. No acute osseous abnormalities.
[2021-05-04] MEDS ORDERED: cefTRIAXone IN SWFI 1,000 MG/10 ML SYRINGE IVP STA (13:30)
--- NOTE | 2021-05-04 13:32 | ED ---
Female Urogenital HPI - General Chief complaint: Vaginal Bleeding Stated complaint: vaginal bleeding Time Seen by Provider: 05/04/21 11:40 Source: patient, EMS, RN notes reviewed Mode of arrival: EMS Limitations: no limitations - History of Present Illness Initial comments: Patient is an 86-year-old female, with history of heart disease, hypertension, f requent UTIs, presenting to the emergency Department with complaints of vaginal bleeding that started last night. Staff at [facility] stated that patient had vaginal bleeding starting from yesterday. Patient has no complaints today, she is upset that she is here. She has no pain anywhere, no fevers or chills, no shortness of breath or cough. She has no respiratory symptoms. She states s he does get urinary tract infections a lot. Patient was recently treated for a PE, she is on Xarlto currently. Patient denies any lightheadedness, dizziness, she states she does feel a little bit more weak than normal but no other complaints today. Upon arrival to the ER, she is satting at 88% on room air, rest of vitals normal. - Related Data Home Medications Medication Instructions Recorded Confirmed Acetaminophen Tab [Tylenol] 1,000 mg PO Q4H PRN 10/05/20 05/04/21 Carvedilol [Coreg] 6.25 mg PO BID 10/05/20 05/04/21 Furosemide [Lasix] 20 mg PO DAILY 10/05/20 05/04/21 Melatonin 3 mg PO HS 10/05/20 05/04/21 Pravastatin Sodium 80 mg PO HS 10/05/20 05/04/21 Spironolactone [Aldactone] 25 mg PO BID 10/05/20 05/04/21 Furosemide [Lasix] 40 mg PO DAILY 01/20/21 05/04/21 Levothyroxine Sodium [Synthroid] 125 mcg PO DAILY 01/20/21 05/04/21 Allopurinol [Zyloprim] 100 mg PO BID 05/04/21 05/04/21 Budesonide [Pulmicort] 0.5 mg INHALATION RT-BID 05/04/21 05/04/21 Budesonide/Formoterol Fumarate 1 puff INHALATION RT-BID 05/04/21 05/04/21 [Symbicort 160-4.5 Mcg Inhaler] Cholecalciferol [Vitamin D3 (125 125 mcg PO DAILY 05/04/21 05/04/21 Mcg = 5000 Iu)] Ipratropium-Albuterol Nebulize 3 ml INHALATION RT-QID 05/04/21 05/04/21 [Duoneb 0.5 mg-3 mg/3 ml Soln] Ipratropium-Albuterol Nebulize 3 ml INHALATION RT-QID PRN 05/04/21 05/04/21 [Duoneb 0.5 mg-3 mg/3 ml Soln] Loratadine [Claritin] 5 mg PO BID 05/04/21 05/04/21 Magnesium Hydroxide [Milk of 2,400 mg PO Q48H PRN 05/04/21 05/04/21 Magnesia] Na Phos,M-B/Na Phos,Di-Ba [Fleet 133 ml RECTAL DAILY PRN 05/04/21 05/04/21 Adult] Rivaroxaban [Xarelto] 20 mg PO HS 05/04/21 05/04/21 Sennosides [Senna] 17.2 mg PO HS 05/04/21 05/04/21 Sennosides [Senna] 17.2 mg PO HS PRN 05/04/21 05/04/21 Zolpidem [Ambien] 5 mg PO HS PRN 05/04/21 05/04/21 bisacodyL [Dulcolax] 10 mg RECTAL DAILY PRN 05/04/21 05/04/21 Previous Rx's Medication Instructions Recorded Cephalexin [Keflex] 500 mg PO Q6HR 5 Days #20 cap 05/04/21 Allergies Allergy/AdvReac Type Severity Reaction Status Date / Time Sulfa (Sulfonamide Allergy Rash/Hives Verified 05/04/21 11:22 Antibiotics) Review of Systems ROS Statement: Those systems with pertinent positive or pertinent negative responses have been documented in the HPI. ROS Other: All systems not noted in ROS Statement are negative. Past Medical History Past Medical History: Coronary Artery Disease (CAD), Hyperlipidemia, Hypertension, Myocardial Infarction ([place]), Thyroid Disorder Additional Past Medical History / Comment(s): frequent uti Last Myocardial Infarction Date:: 1984 History of Any Multi-Drug Resistant Organisms: None Reported Past Surgical History: Appendectomy, Cholecystectomy, Joint Replacement, Tonsillectomy Additional Past Surgical History / Comment(s): RT TOTAL KNEE ARTHROPLASTY Past Anesthesia/Blood Transfusion Reactions: No Reported Reaction Past Psychological History: No Psychological Hx Reported Smoking Status: Never smoker Past Alcohol Use History: None Reported Past Drug Use History: None Reported - Past Family History family Additional Family Medical History / Comment(s): no hx of significant stroke General Exam - General Exam Comments Initial Comments: GENERAL: Patient is well-developed and well-nourished. Patient is nontoxic and in no acute distress, answering questions appropriately. HEAD: Atraumatic, normocephalic. EYES: Pupils equal round and reactive to light, extraocular movements intact, sclera anicteric, conjunctiva are normal. Eyelids were unremarkable. ENT: TMs normal, nares patent, oropharynx clear without exudates. Moist mucous membranes. NECK: Normal range of motion, supple without lymphadenopathy or JVD. LUNGS: Unlabored respirations. Breath sounds clear to auscultation bilaterally and equal. No wheezes rales or rhonchi. HEART: Regular rate and rhythm without murmurs, rubs or gallops. ABDOMEN: Soft, nontender, normoactive bowel sounds. No guarding, no rebound. No masses appreciated. MUSCULOSKELETAL: Normal extremities with adequate strength and normal range of motion, no pitting or edema. No clubbing or cyanosis. NEUROLOGICAL: Patient is alert and oriented x 3. Motor and sensory are also intact. Cranial nerves II through XII grossly intact. Symmetrical smile. Normal speech. PSYCH: Normal mood, normal affect. SKIN: Warm, Dry, normal turgor, no rashes or lesions noted. External exam: Present: normal external exam Speculum exam: Absent: vaginal bleeding Course Vital Signs 05/04/21 11:14 Temperature 98.0 F Pulse Rate 65 Respiratory 18 Rate Blood Pressure 113/62 O2 Sat by Pulse 88 L Oximetry Medical Decision Making - Medical Decision Making patient is an 86-year-old female with history of PE, heart disease, presenting for concerns of vaginal bleeding starting yesterday. Patient did arrive 88% on room air however upon recheck while in the ER, she is at 95% on room air. Rest of vitals are within normal limits. She has no complaints today, no abdominal pain. Labs are within normal limits including a normal white count, stable hemoglobin at 13.8, kidney function is normal. Urine does reveal large amount of blood, 21 wbc's, urine culture is pending. Pelvic exam does not reveal vaginal bleeding, I do think she is having hematuria. Rapid Covid is negative, chest x-ray shows no substantial change in appearance compared to prior, there are stable findings. I will start her on antibiotics for UTI. She is stable for discharge back home. She is agreeable to this plan of care. Return parameters were discussed with her and she verbalized understanding. Case discussed with Dr. Theodore. - Lab Data Result diagrams: 05/04/21 12:05 05/04/21 12:05 Lab Results 05/04/21 05/04/21 05/04/21 Range/Units 12:05 12:05 12:05 WBC 6.7 (3.8-10.6) k/uL RBC 4.38 (3.80-5.40) m/uL Hgb 13.8 (11.4-16.0) gm/dL Hct 42.0 (34.0-46.0) % MCV 95.8 (80.0-100.0) fL MCH 31.5 (25.0-35.0) pg MCHC 32.9 (31.0-37.0) g/dL RDW 14.1 (11.5-15.5) % Plt Count 136 L (150-450) k/uL MPV 8.7 Neutrophils % 56 % Lymphocytes % 28 % Monocytes % 8 % Eosinophils % 6 % Basophils % 0 % Neutrophils # 3.7 (1.3-7.7) k/uL Lymphocytes # 1.9 (1.0-4.8) k/uL Monocytes # 0.5 (0-1.0) k/uL Eosinophils # 0.4 (0-0.7) k/uL Basophils # 0.0 (0-0.2) k/uL PT 13.3 H (9.0-12.0) sec INR 1.3 H (<1.2) APTT 27.5 (22.0-30.0) sec Sodium 136 L (137-145) mmol/L Potassium 5.4 H (3.5-5.1) mmol/L Chloride 100 (98-107) mmol/L Carbon Dioxide 32 H (22-30) mmol/L Anion Gap 4 mmol/L BUN 23 H (7-17) mg/dL Creatinine 0.82 (0.52-1.04) mg/dL Est GFR (CKD-EPI)AfAm 74 (>60 ml/min/1.73 sqM) Est GFR (CKD-EPI)NonAf 64 (>60 ml/min/1.73 sqM) Glucose 113 H (74-99) mg/dL Calcium 10.1 (8.4-10.2) mg/dL Total Bilirubin 0.8 (0.2-1.3) mg/dL AST 55 H (14-36) U/L ALT 20 (4-34) U/L Alkaline Phosphatase 101 (38-126) U/L Total Protein 7.1 (6.3-8.2) g/dL Albumin 3.7 (3.5-5.0) g/dL Urine Color Urine Appearance (Clear) Urine pH (5.0-8.0) Ur Specific [place] (1.001-1.035) Urine Protein (Negative) Urine Glucose (UA) (Negative) Urine Ketones (Negative) Urine Blood (Negative) Urine Nitrite (Negative) Urine Bilirubin (Negative) Urine Urobilinogen (<2.0) mg/dL Ur Leukocyte Esterase (Negative) Urine RBC (0-5) /hpf Urine WBC (0-5) /hpf Ur Squamous Epith Cells (0-4) /hpf Urine Mucus (None) /hpf Coronavirus (PCR) (Not Detectd) 05/04/21 05/04/21 Range/Units 12:05 12:35 WBC (3.8-10.6) k/uL RBC (3.80-5.40) m/uL Hgb (11.4-16.0) gm/dL Hct (34.0-46.0) % MCV (80.0-100.0) fL MCH (25.0-35.0) pg MCHC (31.0-37.0) g/dL RDW (11.5-15.5) % Plt Count (150-450) k/uL MPV Neutrophils % % Lymphocytes % % Monocytes % % Eosinophils % % Basophils % % Neutrophils # (1.3-7.7) k/uL Lymphocytes # (1.0-4.8) k/uL Monocytes # (0-1.0) k/uL Eosinophils # (0-0.7) k/uL Basophils # (0-0.2) k/uL PT (9.0-12.0) sec INR (<1.2) APTT (22.0-30.0) sec Sodium (137-145) mmol/L Potassium (3.5-5.1) mmol/L Chloride (98-107) mmol/L Carbon Dioxide (22-30) mmol/L Anion Gap mmol/L BUN (7-17) mg/dL Creatinine (0.52-1.04) mg/dL Est GFR (CKD-EPI)AfAm (>60 ml/min/1.73 sqM) Est GFR (CKD-EPI)NonAf (>60 ml/min/1.73 sqM) Glucose (74-99) mg/dL Calcium (8.4-10.2) mg/dL Total Bilirubin (0.2-1.3) mg/dL AST (14-36) U/L ALT (4-34) U/L Alkaline Phosphatase (38-126) U/L Total Protein (6.3-8.2) g/dL Albumin (3.5-5.0) g/dL Urine Color Red Urine Appearance Clear (Clear) Urine pH 7.0 (5.0-8.0) Ur Specific [place] 1.018 (1.001-1.035) Urine Protein 1+ H (Negative) Urine Glucose (UA) Negative (Negative) Urine Ketones Negative (Negative) Urine Blood Large H (Negative) Urine Nitrite Negative (Negative) Urine Bilirubin Negative (Negative) Urine Urobilinogen <2.0 (<2.0) mg/dL Ur Leukocyte Esterase Moderate H (Negative) Urine RBC >182 H (0-5) /hpf Urine WBC 21 H (0-5) /hpf Ur Squamous Epith Cells 3 (0-4) /hpf Urine Mucus Rare H (None) /hpf Coronavirus (PCR) Not Detected (Not Detectd) Disposition Clinical Impression: Hematuria, UTI (urinary tract infection) Disposition: HOME SELF-CARE Condition: Stable Instructions (If sedation given, give patient instructions): Urinary Tract Infection in Women (ED) Additional Instructions: Please return to the Emergency Department if symptoms worsen or any other concerns. Take antibiotics as prescribed starting this evening. Increase your fluid intake. Please follow-up with your primary care physician. Prescriptions: Cephalexin [Keflex] 500 mg PO Q6HR 5 Days #20 cap Is patient prescribed a controlled substance at d/c from ED?: No Referrals: Chance Robertson MD [Primary Care Provider] - 1-2 days Time of Disposition: 13:32
[2021-05-04 15:40] VITALS: BP 115/67; PULSE 64; TEMP 97.1
== END 2021-05-04 15:47 | disposition home or self-care (01) ==
LOC: EC 11:12
DX: N39.0 Urinary tract infection, site not specified (principal); Z20.822 Contact with and (suspected) exposure to COVID-19; I10 Essential (primary) hypertension; I25.2 Old myocardial infarction; I25.10 Atherosclerotic heart disease of native coronary artery without angina pectoris; E78.5 Hyperlipidemia, unspecified; Z79.890 Hormone replacement therapy; Z79.51 Long term (current) use of inhaled steroids; Z79.01 Long term (current) use of anticoagulants; Z79.899 Other long term (current) drug therapy
CPT/HCPCS: 36415; 80053; 85025; 85610; 85730; 81001; 87086; 87077; 87186; 87635; 71045; 99284; 96374; J0696

== ENCOUNTER 2021-05-24 10:53 | Emergency (ER) | payer MEDICARE, OTHER ==
[2021-05-24 11:00] VITALS: TEMP 97.6
--- NOTE | 2021-05-24 11:16 | ED ---
Back Pain HPI - General Chief Complaint: Back Pain/Injury Stated Complaint: Fall Source: EMS Limitations: no limitations - History of Present Illness Initial Comments: Dictation was produced using [employer] dictation software. please excuse any grammatical, word or spelling errors. Chief Complaint: 86-year-old female presents emergency department for weakness and back pain History of Present Illness: Patient is an 86-year-old female. She is a poor started. She has multiple comorbidities. Patient states that she has back pain. She slid out of bed. EMS was called. She is a resident in assisted living facility. She allegedly slid out of bed. Denies any trauma. Patient's family member was called from the assisted living facility staff. Family member allegedly request the patient be brought to the emergency department for evaluation. She recently completed a course of advice for urinary tract infection. Patient complaining of mid to lower back pain. She states she's had this pain for weeks. No other complaints. She reports that she does not need to be in the emergency room. The ROS documented in this emergency department record has been reviewed and confirmed by me. Those systems with pertinent positive or negative responses have been documented in the HPI. All other systems are other negative and/or noncontributory. PHYSICAL EXAM: General Impression: Alert and oriented x3, not in acute distress HEENT: Normocephalic atraumatic, extra-ocular movements intact, pupils equal and reactive to light bilaterally, mucous membranes moist. Cardiovascular: Heart regular rate and rhythm Chest: Able to complete full sentences, no retractions, no tachypnea Abdomen: abdomen soft, non-tender, non-distended, no organomegaly Musculoskeletal: Pulses present and equal in all extremities, no peripheral edema Motor: no focal deficits noted Neurological: CN II-XII grossly intact, no focal motor or sensory deficits noted Skin: Intact with no visualized rashes Psych: Normal affect and mood ED course: 86-year-old female presents to the emergency department for weakness and back pain. Patient has atraumatic back pain however she is 78 years old. She has no associated neurologic symptoms. Vital signs upon arrival are within acceptable limits. Patient wears home O2 Laboratory evaluation obtained. CBC, coag panel, metabolic panel is unremarkable. Urinalysis is negative. Troponins negative. Rest lumbar CT shows degenerative spinal disease. Patient be discharged. Daughter is at the bedside reports that patient appears to be at baseline. Patient and daughter agreeable to plan. EKG interpretation: Ventricular rate 73, normal sinus rhythm, [place] interval 190, QRS 82, QTc 449. No [place] prolongation, no QTC prolongation, no ST or T-wave changes noted. EKG compared to 01/20/2021 showing no changes. Overall, this EKG is unremarkable - Related Data Home Medications Medication Instructions Recorded Confirmed Acetaminophen Tab [Tylenol] 1,000 mg PO Q4H PRN 10/05/20 05/04/21 Carvedilol [Coreg] 6.25 mg PO BID 10/05/20 05/04/21 Furosemide [Lasix] 20 mg PO DAILY 10/05/20 05/04/21 Melatonin 3 mg PO HS 10/05/20 05/04/21 Pravastatin Sodium 80 mg PO HS 10/05/20 05/04/21 Spironolactone [Aldactone] 25 mg PO BID 10/05/20 05/04/21 Furosemide [Lasix] 40 mg PO DAILY 01/20/21 05/04/21 Levothyroxine Sodium [Synthroid] 125 mcg PO DAILY 01/20/21 05/04/21 Allopurinol [Zyloprim] 100 mg PO BID 05/04/21 05/04/21 Budesonide [Pulmicort] 0.5 mg INHALATION RT-BID 05/04/21 05/04/21 Budesonide/Formoterol Fumarate 1 puff INHALATION RT-BID 05/04/21 05/04/21 [Symbicort 160-4.5 Mcg Inhaler] Cholecalciferol [Vitamin D3 (125 125 mcg PO DAILY 05/04/21 05/04/21 Mcg = 5000 Iu)] Ipratropium-Albuterol Nebulize 3 ml INHALATION RT-QID 05/04/21 05/04/21 [Duoneb 0.5 mg-3 mg/3 ml Soln] Ipratropium-Albuterol Nebulize 3 ml INHALATION RT-QID PRN 05/04/21 05/04/21 [Duoneb 0.5 mg-3 mg/3 ml Soln] Loratadine [Claritin] 5 mg PO BID 05/04/21 05/04/21 Magnesium Hydroxide [Milk of 2,400 mg PO Q48H PRN 05/04/21 05/04/21 Magnesia] Na Phos,M-B/Na Phos,Di-Ba [Fleet 133 ml RECTAL DAILY PRN 05/04/21 05/04/21 Adult] Rivaroxaban [Xarelto] 20 mg PO HS 05/04/21 05/04/21 Sennosides [Senna] 17.2 mg PO HS 05/04/21 05/04/21 Sennosides [Senna] 17.2 mg PO HS PRN 05/04/21 05/04/21 Zolpidem [Ambien] 5 mg PO HS PRN 05/04/21 05/04/21 bisacodyL [Dulcolax] 10 mg RECTAL DAILY PRN 05/04/21 05/04/21 Previous Rx's Medication Instructions Recorded Cephalexin [Keflex] 500 mg PO Q6HR 5 Days #20 cap 05/04/21 Allergies Allergy/AdvReac Type Severity Reaction Status Date / Time Sulfa (Sulfonamide Allergy Rash/Hives Verified 05/04/21 11:22 Antibiotics) Review of Systems ROS Statement: Those systems with pertinent positive or pertinent negative responses have been documented in the HPI. ROS Other: All systems not noted in ROS Statement are negative. Past Medical History Past Medical History: Coronary Artery Disease (CAD), Hyperlipidemia, Hypertension, Myocardial Infarction ([place]), Thyroid Disorder Additional Past Medical History / Comment(s): frequent uti Last Myocardial Infarction Date:: 1984 History of Any Multi-Drug Resistant Organisms: ESBL Date of last positivie culture/infection: 05/04/21 MDRO Source:: ESBL URINE Past Surgical History: Appendectomy, Cholecystectomy, Joint Replacement, Tonsillectomy Additional Past Surgical History / Comment(s): RT TOTAL KNEE ARTHROPLASTY Past Anesthesia/Blood Transfusion Reactions: No Reported Reaction Past Psychological History: No Psychological Hx Reported Smoking Status: Never smoker Past Alcohol Use History: None Reported Past Drug Use History: None Reported - Past Family History family Additional Family Medical History / Comment(s): no hx of significant stroke General Exam Limitations: no limitations Course Vital Signs 05/24/21 05/24/21 05/24/21 10:58 13:02 13:25 Temperature 97.6 F Pulse Rate 75 73 72 Respiratory 18 18 18 Rate Blood Pressure 148/70 122/89 O2 Sat by Pulse 98 95 94 L Oximetry Medical Decision Making - Lab Data Result diagrams: 05/24/21 11:41 05/24/21 11:41 Lab Results 05/24/21 05/24/21 05/24/21 Range/Units 11:41 11:41 11:41 WBC 8.2 (3.8-10.6) k/uL RBC 4.21 (3.80-5.40) m/uL Hgb 13.5 (11.4-16.0) gm/dL Hct 42.1 (34.0-46.0) % MCV 100.1 H (80.0-100.0) fL MCH 32.2 (25.0-35.0) pg MCHC 32.1 (31.0-37.0) g/dL RDW 14.0 (11.5-15.5) % Plt Count 114 L (150-450) k/uL MPV 8.5 Neutrophils % 65 % Lymphocytes % 19 % Monocytes % 9 % Eosinophils % 5 % Basophils % 1 % Neutrophils # 5.3 (1.3-7.7) k/uL Lymphocytes # 1.6 (1.0-4.8) k/uL Monocytes # 0.7 (0-1.0) k/uL Eosinophils # 0.5 (0-0.7) k/uL Basophils # 0.1 (0-0.2) k/uL Macrocytosis Slight PT 10.6 (9.0-12.0) sec INR 1.0 (<1.2) APTT 20.6 L (22.0-30.0) sec Sodium 137 (137-145) mmol/L Potassium 4.9 (3.5-5.1) mmol/L Chloride 98 (98-107) mmol/L Carbon Dioxide 33 H (22-30) mmol/L Anion Gap 6 mmol/L BUN 28 H (7-17) mg/dL Creatinine 0.77 (0.52-1.04) mg/dL Est GFR (CKD-EPI)AfAm 80 (>60 ml/min/1.73 sqM) Est GFR (CKD-EPI)NonAf 69 (>60 ml/min/1.73 sqM) Glucose 133 H (74-99) mg/dL Plasma Lactic Acid [place] (0.7-2.0) mmol/L Calcium 10.1 (8.4-10.2) mg/dL Magnesium 1.8 (1.6-2.3) mg/dL Urine Color Urine Appearance (Clear) Urine pH (5.0-8.0) Ur Specific [place] (1.001-1.035) Urine Protein (Negative) Urine Glucose (UA) (Negative) Urine Ketones (Negative) Urine Blood (Negative) Urine Nitrite (Negative) Urine Bilirubin (Negative) Urine Urobilinogen (<2.0) mg/dL Ur Leukocyte Esterase (Negative) Coronavirus (PCR) (Not Detectd) 05/24/21 05/24/21 05/24/21 Range/Units 11:41 12:16 13:24 WBC (3.8-10.6) k/uL RBC (3.80-5.40) m/uL Hgb (11.4-16.0) gm/dL Hct (34.0-46.0) % MCV (80.0-100.0) fL MCH (25.0-35.0) pg MCHC (31.0-37.0) g/dL RDW (11.5-15.5) % Plt Count (150-450) k/uL MPV Neutrophils % % Lymphocytes % % Monocytes % % Eosinophils % % Basophils % % Neutrophils # (1.3-7.7) k/uL Lymphocytes # (1.0-4.8) k/uL Monocytes # (0-1.0) k/uL Eosinophils # (0-0.7) k/uL Basophils # (0-0.2) k/uL Macrocytosis PT (9.0-12.0) sec INR (<1.2) APTT (22.0-30.0) sec Sodium (137-145) mmol/L Potassium (3.5-5.1) mmol/L Chloride (98-107) mmol/L Carbon Dioxide (22-30) mmol/L Anion Gap mmol/L BUN (7-17) mg/dL Creatinine (0.52-1.04) mg/dL Est GFR (CKD-EPI)AfAm (>60 ml/min/1.73 sqM) Est GFR (CKD-EPI)NonAf (>60 ml/min/1.73 sqM) Glucose (74-99) mg/dL Plasma Lactic Acid Philip 1.3 (0.7-2.0) mmol/L Calcium (8.4-10.2) mg/dL Magnesium (1.6-2.3) mg/dL Urine Color Yellow Urine Appearance Clear (Clear) Urine pH 7.0 (5.0-8.0) Ur Specific [place] 1.015 (1.001-1.035) Urine Protein Negative (Negative) Urine Glucose (UA) Negative (Negative) Urine Ketones Negative (Negative) Urine Blood Negative (Negative) Urine Nitrite Negative (Negative) Urine Bilirubin Negative (Negative) Urine Urobilinogen <2.0 (<2.0) mg/dL Ur Leukocyte Esterase Negative (Negative) Coronavirus (PCR) Not Detected (Not Detectd) Disposition Clinical Impression: Weakness, Mechanical back pain Disposition: HOME SELF-CARE Condition: Good Instructions (If sedation given, give patient instructions): Chronic Back Pain ([place]) Is patient prescribed a controlled substance at d/c from ED?: No Referrals: Chance Robertson MD [Primary Care Provider] - 1-2 days
--- NOTE | 2021-05-24 11:38 | CT ---
EXAMINATION TYPE: CT thor lumbar spine wo con DATE OF EXAM: 05/24/2021 COMPARISON: None HISTORY: Fall, back pain CT DLP: 2927.5 mGycm Automated exposure control for dose reduction was used. FINDINGS: The thoracic and lumbar vertebral segments are normal in height. There is a slight grade 1 anterolist hesis of L4 on L5. There is mild degenerative disc disease at multiple levels thoracic spine with mild disc space narrow ing. There is moderate to severe degenerative disease in the lumbar spine with moderate to severe dis c space narrowing, vacuum phenomena and mild spondylosis. Secondary to disc bulge and thickening ligamentum flavum there is mild spinal stenosis at the L2-3 le maximo, moderate to severe spinal stenosis at the L3-4 and L4-5 levels. There is advanced facet arthropathy in the lower lumbar spine. There is calcification of the abdominal aorta without evidence of aneurysmal dilatation. IMPRESSION: 1. No evidence of acute trauma to the thoracic or lumbar spine. 2. Grade 1 anterolisthesis of L4-L5. 3. Mild degenerative disc disease in the thoracic spine and moderate to severe degenerative disc dise ase in the lumbar spine. 4. Multilevel spinal stenosis the lumbar spine from L2 through S1 as described above. 5. Advanced arthropathy of the facets in the lower lumbar spine. IMPRESSION:
[2021-05-24 11:51] LABS: Basophils # (A) 0.1 k/uL (0-0.2); Basophils % (A) 1 %; Eosinophils # (A) 0.5 k/uL (0-0.7); Eosinophils % (A) 5 %; HCT 42.1 % (34.0-46.0); HGB 13.5 gm/dL (11.4-16.0); Lymphocytes # (A) 1.6 k/uL (1.0-4.8); Lymphocytes % (A) 19 %; MCH 32.2 pg (25.0-35.0); MCHC 32.1 g/dL (31.0-37.0); MCV 100.1 fL (80.0-100.0); Macrocytosis Slight; Mean Platelet Volume 8.5; Monocytes # (A) 0.7 k/uL (0-1.0); Monocytes % (A) 9 %; Neutrophils # (A) 5.3 k/uL (1.3-7.7); Neutrophils % (A) 65 %; Platelet Count 114 k/uL (150-450); RBC 4.21 m/uL (3.80-5.40); WBC 8.2 k/uL (3.8-10.6)
[2021-05-24 11:59] LABS: Calcium 10.1 mg/dL (8.4-10.2); Magnesium 1.8 mg/dL (1.6-2.3); Potassium 4.9 mmol/L (3.5-5.1)
[2021-05-24 12:04] LABS: Prothrombin Time 10.6 sec (9.0-12.0)
[2021-05-24 12:07] LABS: Partial Thromboplastin Time 20.6 sec (22.0-30.0)
[2021-05-24] MEDS ORDERED: SODIUM CHLORIDE 0.9% 1,000 ML IV STA (12:24)
[2021-05-24 13:31] LABS: Appearance,Urine Clear (Clear); Bilirubin,Urine Negative (Negative); Blood,Urine Negative (Negative); Color,Urine Yellow; Glucose,Urine (UA) Negative (Negative); Ketones,Urine Negative (Negative); Leukocyte Esterase,Urine Negative (Negative); Nitrite,Urine Negative (Negative); Protein,Urine Negative (Negative); Specific Gravity,Urine 1.015 (1.001-1.035); Urobilinogen,Urine <2.0 mg/dL (<2.0)
[2021-05-24 14:31] VITALS: BP 132/72; PULSE 67; RESP 16
== END 2021-05-24 15:23 | disposition home or self-care (01) ==
LOC: EC 10:53
DX: M54.9 Dorsalgia, unspecified (principal); R53.1 Weakness; I10 Essential (primary) hypertension; I25.10 Atherosclerotic heart disease of native coronary artery without angina pectoris; E78.5 Hyperlipidemia, unspecified; I25.2 Old myocardial infarction; E07.9 Disorder of thyroid, unspecified; Z20.822 Contact with and (suspected) exposure to COVID-19; Z88.2 Allergy status to sulfonamides; Z87.440 Personal history of urinary (tract) infections; Z90.49 Acquired absence of other specified parts of digestive tract; Z96.651 Presence of right artificial knee joint
CPT/HCPCS: 36415; 72128; 72131; 80048; 81003; 83605; 83735; 85025; 85610; 85730; 87635; 93005; 96360; 96361; 99285